=== PATIENT | male | born 1960 | race Caucasian/White ===

== ENCOUNTER → 2022-01-26 | Outpatient (CLI) | payer OTHER ==
[2022-01-26 18:32] LABS: Basophils # (A) 0.05 X 10*3/uL (0.00-0.10); Basophils % (A) 0.5 %; Eosinophils # (A) 0.09 X 10*3/uL (0.04-0.35); Eosinophils % (A) 0.8 %; HCT 52.3 % (39.6-50.0); HGB 17.1 g/dL (13.0-17.0); Immature Grans, Automated 0.9 %; Lymphocytes # (A) 1.82 X 10*3/uL (0.90-5.00); Lymphocytes % (A) 17.1 %; MCHC 32.7 g/dL (32.0-37.0); MCV 91.8 fL (80.0-97.0); Mean Platelet Volume 11.2 fL (9.5-12.2); Monocytes # (A) 0.63 X 10*3/uL (0.20-1.00); Monocytes % (A) 5.9 %; NRBC Per 100 WBC 0 /100 WBCS (0.0-0.0); Neutrophils # (A) 7.98 X 10*3/uL (1.80-7.70); Neutrophils % (A) 74.8 %; Platelet Count 188 X 10*3/uL (140-440); WBC 10.67 X 10*3/uL (4.50-10.00)
[2022-01-26 19:27] LABS: Protein, Total 7.2 g/dL (6.2-8.2)
[2022-01-26 19:34] LABS: African American GFR (CKD) 46.7 (60.0-200.0); Albumin 4.8 g/dL (3.8-4.9); Albumin/Globulin Ratio 1.88 (1.60-3.17); Anion Gap 15.1 mmol/L (10.00-18.00); BUN/Creat Ratio 15.61 Ratio (12.00-20.00); Blood Urea Nitrogen 28.1 mg/dL (9.0-27.0); Calcium 10.1 mg/dL (8.7-10.3); Carbon Dioxide 24.4 mmol/L (20.0-27.5); Globulin 2.6 g/dL (1.6-3.3); Non-African American GFR(CKD) 40.3 (60.0-200.0); Potassium 4.4 mmol/L (3.5-5.5); Total Bilirubin 0.7 mg/dL (0.30-1.20); Total Protein 7.3 g/dL (6.2-8.2)
== END | disposition home or self-care (01) ==
LOC: LABWHC1 14:43
PROVIDERS: ATTEND Internal Medicine
DX: L50.9 Urticaria, unspecified (principal)
CPT/HCPCS: 36415; 80053; 84165; 84443; 85025; 86038; 86160; 86161; 86332

== ENCOUNTER 2025-01-29 23:02 | Inpatient (IN) | payer OTHER ==
[2025-01-29] MEDS: SODIUM CHLORIDE 0.9% 1,000 ML IV STA (23:56)
[2025-01-30 00:01] LABS: HCT 33.6 % (39.6-50.0); HGB 11.8 g/dL (13.0-17.0); Immature Platelet Fraction 6.5 % (1.1-6.1); MCH 29.4 pg (27.0-32.0); MCHC 35.1 g/dL (32.0-37.0); MCV 83.6 fL (80.0-97.0); Mean Platelet Volume 11.2 fL (9.5-12.2); Platelet Count 139 10*3/uL (140-440); RBC 4.02 10*6/uL (4.40-5.60); RDW 14.8 % (11.5-14.5); WBC 6.89 10*3/uL (4.50-10.00)
--- NOTE | 2025-01-30 00:30 | XR ---
EXAM: XR Chest, 1 View CLINICAL HISTORY: ITS.REASON XR Reason: dyspnea TECHNIQUE: Frontal view of the chest. COMPARISON: No relevant prior studies available. FINDINGS: Lungs: Airspace consolidation in the right lung apex and bilateral lower lobes, consistent with multilobar pneumonia. Pleural space: Trace right pleural effusion. No pneumothorax. Heart: Unremarkable. No cardiomegaly. Mediastinum: Unremarkable. Bones/joints: Unremarkable. IMPRESSION: 1. Airspace consolidation in the right lung apex and bilateral lower lobes, consistent with multilobar pneumonia. 2. Trace right pleural effusion.
[2025-01-30] MEDS: HYDROmorphone 1 MG/ML 1 ML SYRINGE IVP STA ×2 (00:37→04:59)
[2025-01-30] MEDS: SODIUM CHLORIDE 0.9% 500 ML 500 ML IV STA (00:42)
[2025-01-30 00:43] LABS: ALT 42 U/L (4-49); AST 65 U/L (17-59); African American GFR (CKD) 35 (>60 ml/min/1.73 sqM); Albumin 3.4 g/dL (3.5-5.0); Alkaline Phosphatase 404 U/L (38-126); Anion Gap 18 mmol/L; Blood Urea Nitrogen 91 mg/dL (9-20); Calcium 8.8 mg/dL (8.4-10.2); Carbon Dioxide 21 mmol/L (22-30); Chloride 98 mmol/L (98-107); Glucose 131 mg/dL (74-99); Non-African American GFR(CKD) 31 (>60 ml/min/1.73 sqM); Sodium 137 mmol/L (137-145); Total Bilirubin 1.1 mg/dL (0.2-1.3); Total Protein 6.3 g/dL (6.3-8.2)
[2025-01-30 00:45] LABS: Potassium 2.4 mmol/L (3.5-5.1)
--- NOTE | 2025-01-30 00:45 | ED ---
General Adult HPI - General Chief complaint: Dizziness Stated complaint: Back Pain Time Seen by Provider: 01/29/25 23:24 Source: patient, EMS Mode of arrival: EMS Limitations: no limitations - History of Present Illness Initial comments: This patient is a 64-year-old man who presents to have evaluation of a number of symptoms. The thing that precipitated his visit today was that he was very weak and fell and then not really able to get up because of pain. The patient states he has had longstanding right back and right shoulder pain. He states he has been following up with orthopedics about these pains and they have tried tramadol. Patient states in fact that he has a surgery pending for February 09 but states that he does not think he will last until that date because of pain. He states that he is not able to get comfortable from the right back pain. It radiates to the right shoulder. He is not able to find a comfortable position. He states he is really not eating or drinking because of the pain. The patient did receive fentanyl and ondansetron by EMS. He states he continues to have pain but it is slightly improved. Denies underlying trauma. Onset/Timin -: month(s) Location: back Radiation: extremity Severity scale (1-10): 10 Quality: aching Consistency: constant Improves with: none Worsens with: movement Associated Symptoms: shortness of breath Treatments Prior to Arrival: other - Related Data Home Medications Medication Instructions Recorded Confirmed Acetaminophen [Tylenol Arthritis] 1,300 mg PO Q6H PRN 01/30/25 02/07/25 Cyclobenzaprine [Flexeril] 10 mg PO BID 01/30/25 02/07/25 Ibuprofen [Motrin Ib] 800 mg PO Q6H PRN 01/30/25 02/07/25 Simvastatin [Zocor] 20 mg PO HS 01/30/25 02/07/25 amLODIPine [Norvasc] 10 mg PO DAILY 01/30/25 02/07/25 hydroCHLOROthiazide [Hydrodiuril] 25 mg PO DAILY 01/30/25 02/07/25 traMADol HCL 50 mg PO BID 01/30/25 02/07/25 Allergies Allergy/AdvReac Type Severity Reaction Status Date / Time peanut Allergy Swelling Verified 01/29/25 23:27 shellfish derived [Shellfish] Allergy Anaphylaxis Verified 06/13/25 23:27 soybean Allergy Swelling Verified 01/29/25 23:27 wheat Allergy Swelling Verified 01/29/25 23:27 Review of Systems ROS Statement: Those systems with pertinent positive or pertinent negative responses have been documented in the HPI. ROS Other: All systems not noted in ROS Statement are negative. Constitutional: Reports: weakness. Denies: fever, chills Respiratory: Reports: dyspnea. Denies: cough, wheezes, hemoptysis Cardiovascular: Denies: chest pain, palpitations, edema Gastrointestinal: Reports: nausea. Denies: abdominal pain, vomiting, diarrhea Genitourinary: Denies: dysuria, hematuria Musculoskeletal: Reports: as per HPI, back pain Skin: Denies: rash, lesions Neurological: Denies: headache, weakness Past Medical History Past Medical History: No Reported History History of Any Multi-Drug Resistant Organisms: None Reported Past Surgical History: Hernia Repair Additional Past Surgical History / Comment(s): 2011 and 2015 mesh hernia repairs bilateral Past Psychological History: No Psychological Hx Reported Smoking Status: Current every day smoker, Heavy tobacco smoker Past Alcohol Use History: None Reported Past Drug Use History: None Reported - Past Family History Mother Family Medical History: CVA/TIA Father Family Medical History: Cancer Additional Family Medical History / Comment(s): lymphoma General Exam General appearance: alert, in distress Head exam: Present: atraumatic, normocephalic Eye exam: Present: normal appearance. Absent: scleral icterus, conjunctival injection ENT exam: Present: mucous membranes dry Neck exam: Present: normal inspection, full ROM. Absent: tenderness Respiratory exam: Present: respiratory distress, rhonchi. Absent: wheezes, rales, stridor, accessory muscle use, decreased breath sounds, prolonged expiratory Cardiovascular Exam: Present: normal rhythm, tachycardia, normal heart sounds. Absent: systolic murmur, diastolic murmur, rubs, gallop GI/Abdominal exam: Present: soft. Absent: distended, tenderness, guarding, rebound, rigid, mass Extremities exam: Present: normal inspection, normal capillary refill. Absent: pedal edema, calf tenderness Back exam: Present: normal inspection. Absent: CVA tenderness (R), CVA tenderness (L) Neurological exam: Present: alert Skin exam: Present: warm, dry, intact, normal color. Absent: rash Course Vital Signs 01/29/25 01/30/25 01/30/25 23:15 01:12 03:33 Temperature 98.5 F Pulse Rate 104 H 89 98 Respiratory 22 24 20 Rate Blood Pressure 112/64 82/54 123/46 O2 Sat by Pulse 95 90 L 88 L Oximetry Fraction of Inspired Oxygen (FIO2) 01/30/25 01/30/25 01/30/25 05:14 05:51 06:38 Temperature Pulse Rate 89 91 Respiratory 24 Rate Blood Pressure 97/64 101/74 O2 Sat by Pulse 97 91 L Oximetry Fraction of 92 Inspired Oxygen (FIO2) 01/30/25 01/30/25 01/30/25 07:24 08:12 08:17 Temperature Pulse Rate 90 88 Respiratory 26 H Rate Blood Pressure 89/53 O2 Sat by Pulse 87 L Oximetry Fraction of 70 Inspired Oxygen (FIO2) 01/30/25 01/30/25 01/30/25 08:28 08:58 10:00 Temperature Pulse Rate 88 88 69 Respiratory 24 24 Rate Blood Pressure 100/63 100/60 O2 Sat by Pulse 92 L 92 L Oximetry Fraction of Inspired Oxygen (FIO2) 01/30/25 01/30/25 01/30/25 11:00 11:20 11:38 Temperature Pulse Rate 68 85 84 Respiratory 24 Rate Blood Pressure 100/60 O2 Sat by Pulse 93 L Oximetry Fraction of 70 Inspired Oxygen (FIO2) 01/30/25 01/30/25 12:00 15:08 Temperature Pulse Rate 68 75 Respiratory 16 24 Rate Blood Pressure 100/60 135/68 O2 Sat by Pulse 93 L 94 L Oximetry Fraction of Inspired Oxygen (FIO2) EKG Findings - EKG Results: EKG: interpreted by ERMD, sinus rhythm, normal axis, normal QRS EKG shows: tachycardia (Rate 103 bpm) - Blocks, [place], Hypertrophy, ST Abn: Repolarization changes or abnormalities: nonspecific abnormality, ST segment, and/or T wave Medical Decision Making - Medical Decision Making Patient is 64-year-old man with right-sided back pain who on arrival does appear to be in mild respiratory distress. He is tachypneic. The patient does appear to be dehydrated clinically. The patient had chest x-ray that I interpreted as showing right-sided infiltrate suggestive of pneumonia. No pneumothorax or congestive heart failure. The patient subsequently had elevated D-dimer and is sent for CT scan that does appear to show by my interpretation a right lung mass with right-sided pleural effusion. No pulmonary embolism noted Was pt. sent in by a medical professional or institution ([facility], MUSEUM GUIDE, urgent care, hospital, or assisted...) When possible be specific @ -[No] Did you speak to anyone other than the patient for history (EMS, parent, family, police, friend...)? What history was obtained from this source @ -[ patient's contributed history Did you review nursing and triage notes (agree or disagree)? Why? @ -[I reviewed and agree with nursing and triage notes] Were old charts reviewed (outside hosp., previous admission, EMS record, old EKG, old radiological studies, urgent care reports/EKG's, assisted records)? Report findings @ -[Yes old charts were reviewed] Differential Diagnosis (chest pain, altered mental status, abdominal pain women, abdominal pain men, vaginal bleeding, weakness, fever, dyspnea, syncope, headache, dizziness, GI bleed, back pain, seizure, CVA, palpatations, mental health, musculoskeletal)? @ -[Differential Dyspnea: Coronary syndrome, arrhythmia, tamponade, asthma, COPD, pulmonary embolism, pneumonia, pneumothorax, pulmonary effusion, anaphylaxis, diabetic ketoacidosis, flailed chest, pulmonary contusion, diaphragmatic rupture, anemia, neuromuscular, this is not meant to be an all-inclusive list. Differential Musculoskeletal Muscular strain, contusion, ligament sprain, fracture, arthritis, septic arthritis, bursitis, cellulitis, muscle spasm, nerve compression, DVT, arterial occlusion, herpes zoster, electrolyte abnormality, tumor.... This is not meant to be in all inclusive list EKG interpreted by me (3pts min.). @ -[I interpreted as above] X-rays interpreted by me (1pt min.). @ -[None done] CT interpreted by me (1pt min.). @ -[I interpreted as above U/S interpreted by me (1pt. min.). @ -[None done] What testing was considered but not performed or refused? (CT, X-rays, U/S, labs)? Why? @ -[None] What meds were considered but not given or refused? Why? @ -[None] Did you discuss the management of the patient with other professionals (professionals i.e. , [facility], MUSEUM GUIDE, lab, RT, psych nurse, manager social work, delivery supervisor, teacher, medical scientific officer, child welfare caseworker)? Give summary @ -[Case discussed with admitting physician, treatment recommendations incorporated Was smoking cessation discussed for >3mins.? @ -[No] Was critical care preformed (if so, how long)? @ -[Yes, 35 minutes Were there social determinants of health that impacted care today? How? (Homelessness, low income, unemployed, alcoholism, drug addiction, transportation, low edu. Level, literacy, decrease access to med. care, [facility], rehab)? @ -[No] Was there de-escalation of care discussed even if they declined (Discuss DNR or withdrawal of care, Hospice)? DNR status @ -[No] What co-morbidities impacted this encounter? (DM, HTN, Smoking, COPD, CAD, Cancer, CVA, ARF, Chemo, Hep., AIDS, mental health diagnosis, sleep apnea, morbid obesity)? @ -[Extensive smoking history Was patient admitted / discharged? Hospital course, mention meds given and route, prescriptions, significant lab abnormalities, going to OR and other pertinent info. @ -[Patient is 64-year-old man here to have evaluation for back pain and also dyspneic. The patient's workup does reveal right upper lung mass, also suspected pneumonia associated. The patient does appear to be quite dehydrated and there is lactic acidosis and acute kidney injury. Patient also with elevated troponin possibly due to NSTEMI. Patient also hypokalemic on the initial labs. The patient will be admitted with consultations for pulmonology and for oncology Undiagnosed new problem with uncertain prognosis? @ -[No] Drug Therapy requiring intensive monitoring for toxicity (Heparin, Nitro, Insulin, Cardizem)? @ -[No] Were any procedures done? @ -[No] Diagnosis/symptom? @ -[Right upper lung mass, suspect carcinoma Suspected metastases Acute pneumonia COPD exacerbation Acute kidney injury Acute lactic acidosis Acute hypokalemia Elevated troponin, probable NSTEMI Acute, or Chronic, or Acute on Chronic? @ -[Acute Uncomplicated (without systemic symptoms) or Complicated (systemic symptoms)? @ -[Complicated by dyspnea Side effects of treatment? @ -[No] Exacerbation, Progression, or Severe Exacerbation? @ -[No] Poses a threat to life or bodily function? How? (Chest pain, [place], [place], pneumonia, PE, COPD, DKA, ARF, appy, cholecystitis, CVA, Diverticulitis, Homicidal, Suicidal, threat to staff... and all critical care pts) @ -[Yes grave prognosis related to suspected metastatic cancer All treatments are based on ideal body weight as in ED triage - Lab Data Result diagrams: 01/29/25 23:18 02/04/25 07:00 Lab Results 01/29/25 01/29/25 01/29/25 Range/Units 23:18 23:18 23:18 WBC 6.89 (4.50-10.00) 10*3/uL RBC 4.02 L (4.40-5.60) 10*6/uL Hgb 11.8 L (13.0-17.0) g/dL Hct 33.6 L (39.6-50.0) % MCV 83.6 (80.0-97.0) fL MCH 29.4 (27.0-32.0) pg MCHC 35.1 (32.0-37.0) g/dL Plt Count 139 L (140-440) 10*3/uL MPV 11.2 (9.5-12.2) fL Immature Gran % (Auto) 1.0 % Neutrophils % (Manual) 89 % Lymphocytes % (Manual) 7 % Monocytes % (Manual) 1 % Eosinophils % (Manual) 3 % Immature Gran # 0.07 H (0.00-0.04) 10*3/uL Neutrophils # (Manual) 6.13 (1.3-7.7) k/uL Lymphocytes # (Manual) 0.48 L (1.0-4.8) k/uL Monocytes # (Manual) 0.07 (0-1.0) k/uL Eosinophils # (Manual) 0.21 (0-0.7) k/uL Nucleated RBCs 0 (0-0) /100 WBC Manual Slide Review Performed Immature Plt Fraction 6.5 H (1.1-6.1) % Anisocytosis (manual) Present D-Dimer (<0.60) mg/L FEU Sodium 137 (137-145) mmol/L Potassium 2.4 L* (3.5-5.1) mmol/L Chloride 98 (98-107) mmol/L Carbon Dioxide 21 L (22-30) mmol/L Anion Gap 18 mmol/L BUN 91 H (9-20) mg/dL Creatinine 2.23 H (0.66-1.25) mg/dL Est GFR (CKD-EPI)AfAm 35 (>60 ml/min/1.73 sqM) Est GFR (CKD-EPI)NonAf 31 (>60 ml/min/1.73 sqM) Glucose 131 H (74-99) mg/dL Lactic Ac Sepsis Rflx Plasma Lactic Acid Ricardo 4.9 H* (0.7-2.0) mmol/L Calcium 8.8 (8.4-10.2) mg/dL Total Bilirubin 1.1 (0.2-1.3) mg/dL AST 65 H (17-59) U/L ALT 42 (4-49) U/L Alkaline Phosphatase 404 H (38-126) U/L Troponin I (0.000-0.034) ng/mL NT-Pro-B Natriuret Pep pg/mL Total Protein 6.3 (6.3-8.2) g/dL Albumin 3.4 L (3.5-5.0) g/dL Procalcitonin (0.02-0.50) ng/mL 01/29/25 01/29/25 01/30/25 Range/Units 23:18 23:18 00:46 WBC (4.50-10.00) 10*3/uL RBC (4.40-5.60) 10*6/uL Hgb (13.0-17.0) g/dL Hct (39.6-50.0) % MCV (80.0-97.0) fL MCH (27.0-32.0) pg MCHC (32.0-37.0) g/dL Plt Count (140-440) 10*3/uL MPV (9.5-12.2) fL Immature Gran % (Auto) % Neutrophils % (Manual) % Lymphocytes % (Manual) % Monocytes % (Manual) % Eosinophils % (Manual) % Immature Gran # (0.00-0.04) 10*3/uL Neutrophils # (Manual) (1.3-7.7) k/uL Lymphocytes # (Manual) (1.0-4.8) k/uL Monocytes # (Manual) (0-1.0) k/uL Eosinophils # (Manual) (0-0.7) k/uL Nucleated RBCs (0-0) /100 WBC Manual Slide Review Immature Plt Fraction (1.1-6.1) % Anisocytosis (manual) D-Dimer >34.10 H (<0.60) mg/L FEU Sodium (137-145) mmol/L Potassium (3.5-5.1) mmol/L Chloride (98-107) mmol/L Carbon Dioxide (22-30) mmol/L Anion Gap mmol/L BUN (9-20) mg/dL Creatinine (0.66-1.25) mg/dL Est GFR (CKD-EPI)AfAm (>60 ml/min/1.73 sqM) Est GFR (CKD-EPI)NonAf (>60 ml/min/1.73 sqM) Glucose (74-99) mg/dL Lactic Ac Sepsis Rflx Plasma Lactic Acid Ricardo (0.7-2.0) mmol/L Calcium (8.4-10.2) mg/dL Total Bilirubin (0.2-1.3) mg/dL AST (17-59) U/L ALT (4-49) U/L Alkaline Phosphatase (38-126) U/L Troponin I 0.089 H* (0.000-0.034) ng/mL NT-Pro-B Natriuret Pep 5990 pg/mL Total Protein (6.3-8.2) g/dL Albumin (3.5-5.0) g/dL Procalcitonin (0.02-0.50) ng/mL 01/30/25 01/30/25 01/30/25 Range/Units 00:46 00:58 03:20 WBC (4.50-10.00) 10*3/uL RBC (4.40-5.60) 10*6/uL Hgb (13.0-17.0) g/dL Hct (39.6-50.0) % MCV (80.0-97.0) fL MCH (27.0-32.0) pg MCHC (32.0-37.0) g/dL Plt Count (140-440) 10*3/uL MPV (9.5-12.2) fL Immature Gran % (Auto) % Neutrophils % (Manual) % Lymphocytes % (Manual) % Monocytes % (Manual) % Eosinophils % (Manual) % Immature Gran # (0.00-0.04) 10*3/uL Neutrophils # (Manual) (1.3-7.7) k/uL Lymphocytes # (Manual) (1.0-4.8) k/uL Monocytes # (Manual) (0-1.0) k/uL Eosinophils # (Manual) (0-0.7) k/uL Nucleated RBCs (0-0) /100 WBC Manual Slide Review Immature Plt Fraction (1.1-6.1) % Anisocytosis (manual) D-Dimer (<0.60) mg/L FEU Sodium (137-145) mmol/L Potassium (3.5-5.1) mmol/L Chloride (98-107) mmol/L Carbon Dioxide (22-30) mmol/L Anion Gap mmol/L BUN (9-20) mg/dL Creatinine (0.66-1.25) mg/dL Est GFR (CKD-EPI)AfAm (>60 ml/min/1.73 sqM) Est GFR (CKD-EPI)NonAf (>60 ml/min/1.73 sqM) Glucose (74-99) mg/dL Lactic Ac Sepsis Rflx Y Plasma Lactic Acid Ricardo 1.8 (0.7-2.0) mmol/L Calcium (8.4-10.2) mg/dL Total Bilirubin (0.2-1.3) mg/dL AST (17-59) U/L ALT (4-49) U/L Alkaline Phosphatase (38-126) U/L Troponin I (0.000-0.034) ng/mL NT-Pro-B Natriuret Pep pg/mL Total Protein (6.3-8.2) g/dL Albumin (3.5-5.0) g/dL Procalcitonin 64.50 H (0.02-0.50) ng/mL Disposition Clinical Impression: Pleural effusion, Pneumonia, Lung mass Disposition: ADMITTED IP TO THIS HOSP Condition: Serious Is patient prescribed a controlled substance at d/c from ED?: No
[2025-01-30 02:10] LABS: Eosinophils # (M) 0.21 k/uL (0-0.7); Lymphocytes # (M) 0.48 k/uL (1.0-4.8); Monocytes # (M) 0.07 k/uL (0-1.0); Neutrophils # (M) 6.13 k/uL (1.3-7.7); Neutrophils % (M) 89 %; Nucleated Red Blood Cells 0 /100 WBC (0-0); Total Cells Counted 100
[2025-01-30 02:13] LABS: Anisocytosis (M) Present
--- NOTE | 2025-01-30 02:45 | CT ---
EXAM: CT Angiography Chest With Intravenous Contrast CLINICAL HISTORY: ITS.REASON CT Reason: back pain, possible PE TECHNIQUE: Axial computed tomographic angiography images of the chest with intravenous contrast. CTDI is 34 mGy and DLP is 328.7 mGy-cm. This CT exam was performed using one or more of the following dose reduction techniques: automated exposure control, adjustment of the mA and/or kV according to patient size, and/or use of iterative reconstruction technique. MIP reconstructed images were created and reviewed. COMPARISON: No relevant prior studies available. FINDINGS: Pulmonary arteries: Unremarkable. No pulmonary embolism. Aorta: No acute findings. No thoracic aortic aneurysm. Lungs: Diffuse changes COPD. Left lower lobe atelectasis. No mass. Pleural space: Large right pleural effusion. No pneumothorax. Heart: Coronary artery calcifications. No cardiomegaly. No significant pericardial effusion. No evidence of RV dysfunction. Bones/joints: There is extension into the adjacent right 3rd and 4th ribs. This mass measures roughly 2.7 x 6.9 cm. No acute fracture. No dislocation. Soft tissues: Unremarkable. Lymph nodes: 3.2 x 1.8 cm right hilar lymph node. 2.7 cm right infrahilar lymph node. Right upper lobe pulmonary mass. IMPRESSION: Large right pleural effusion. 6.9 cm right upper lobe pulmonary mass likely representing neoplasm. PET scan recommended for further evaluation. Reactive right sided lymphadenopathy and large right pleural effusion
[2025-01-30] MEDS: LACTATED RINGERS 1,000 ML IV SCH (03:44)
[2025-01-30] MEDS ORDERED: ONDANSETRON 4 MG/2 ML VIAL IVP PRN (06:58)
[2025-01-30] MEDS ORDERED: NALOXONE 0.4 MG/ML 1 ML VIAL IV PRN (06:58)
[2025-01-30] MEDS: LACTATED RINGERS 1,000 ML IV ONE (07:10)
[2025-01-30] MEDS: POTASSIUM CHLORIDE ER 20 MEQ TAB.ER PO STA (07:17)
[2025-01-30] MEDS: SODIUM CHLORIDE 0.9% 1,000 ML IV SCH (07:24)
[2025-01-30] MEDS: IPRATROPIUM-ALBUTEROL 3 ML NEB INHALATION STA (08:11)
[2025-01-30] MEDS: FAMOTIDINE 20 MG TAB PO SCH (08:54)
[2025-01-30] MEDS: POTASSIUM CHLORIDE ER 20 MEQ TAB.ER PO SCH (08:55)
[2025-01-30] MEDS: ENOXAPARIN 40 MG/0.4 ML SYRINGE SQ SCH (08:55)
[2025-01-30] MEDS ORDERED: IPRATROPIUM-ALBUTEROL 3 ML NEB INHALATION PRN (09:08)
--- NOTE | 2025-01-30 10:14 | US ---
EXAMINATION TYPE: US chest DATE OF EXAM: 01/30/2025 COMPARISON: NONE CLINICAL INDICATION: Male, 64 years old with history of Right pleural effusion; Right pleural effusio n TECHNIQUE: Grayscale imaging of the chest. Targeted ultrasound of the posterior lower bilateral jazzmine thoraces FINDINGS: EXAM MEASUREMENTS: Right Pleural Effusion pocket size: 1.6 cm Right skin surface to fluid distance: 1.9 cm No significant fluid pocket visualized on left Right side NOT marked for possible thoracentesis outside the dept. Left side NOT marked for possible thoracentesis outside the dept. Pulmonologists are able to review the images in the patient?s EMR. IMPRESSIONS: Trace right pleural effusion. [facility], , 01/30/2025 10:12 AM
[2025-01-30] MEDS: methylPREDNISolone SOD SUCCI 125 MG/2 ML VIAL IV SCH (10:24)
[2025-01-30] MEDS: AZITHROMYCIN 500 MG in SODIUM CHLORIDE 0.9% 250 ML IVPB SCH (10:25)
[2025-01-30] MEDS: IPRATROPIUM-ALBUTEROL 3 ML NEB INHALATION SCH (11:20)
--- NOTE | 2025-01-30 14:57 | P.CNPUL ---
History of Present Illness Consult date: 01/30/25 Requesting physician: Anderson Green Reason for consult: dyspnea, hypoxemia, abnormal CXR/CT Chief complaint: Shortness of breath, dizziness, falls History of present illness: This is a pleasant 64-year-old male patient with a known history of hyperlipidemia, hypertension, recent right shoulder, back and right hip pain. He had been seen and evaluated by medicine and orthopedics and was scheduled for right hip surgery on February 09, 2025. His pain however was getting so bad he could barely walk and was getting dizzy and falling. He presented to the emergency room here late last night. Chest x-ray revealed airspace consolidation in the right lung apex and bilateral lower lobes, consistent with multilobar pneumonia. Trace right pleural effusion. CT angiogram of the chest revealed a large right pleural effusion. A 6.9 by 2.7 cm right upper lobe pulmonary mass likely result representing neoplasm. There is extension into the adjacent right 3rd and 4th rib. Reactive right sided lymphadenopathy. Ultrasound of the right chest revealed only a trace right pleural effusion measuring 1.6 cm. White count 6.8. Hemoglobin 11.8. Platelets 139. Sodium 137. Potassium 2.4. Bicarb 21. BUN 91. Creatinine 2.23. Glucose 131. AST 65. ALT 42. Troponin 0.089, 0.101. proBNP 5990. Procalcitonin 64.5. D-dimer greater than 34.1. The patient has been quite hypoxemic and is currently on Bi PAP / and 70% FiO2 to maintain O2 saturations in the low 90s. He is seen in consultation in the emergency department. He is currently sitting up in a recliner. Remains on BiPAP. His is at the bedside and provides most of the information. He does have a nearly 50-year pack per day smoking history. He has not been seen by bail attacher in the past. He has not had any low-dose CT scans for cancer screening. He has lost 23 pounds in the past several months. Most of his right shoulder and chest pain began in September 2024. Review of Systems REVIEW OF SYSTEMS: CONSTITUTIONAL: Denies any recent significant weight loss or weight gain. EYES: Denies change in vision. EARS, NOSE, MOUTH, THROAT: Denies headaches, denies sore throat. CARDIOVASCULAR: Denies chest pain, palpitations or syncopal episodes. RESPIRATORY: Positive for shortness of breath, cough, congestion no hemoptysis. GASTROINTESTINAL: Denies change in appetite, denies abdominal pain GENITOURINARY: Denies hematuria, denies infections. MUSKULOSKELETAL: Positive for right shoulder, chest and hip pain. INTEGUMENTARY: Denies rash, denies eczema. NEUROLOGICAL: Denies recent memory loss, no recent seizure activity. PSYCHIATRIC: Denies anxiety, denies depression. HEMATOLOGIC/LYMPHATIC: Denies anemia, denies enlarged lymph nodes. Past Medical History Past Medical History: No Reported History History of Any Multi-Drug Resistant Organisms: None Reported Past Surgical History: Hernia Repair Additional Past Surgical History / Comment(s): 2012 and 2016 mesh hernia repairs bilateral Past Psychological History: No Psychological Hx Reported Smoking Status: Current every day smoker, Heavy tobacco smoker Past Alcohol Use History: None Reported Past Drug Use History: None Reported Medications and Allergies Home Medications Medication Instructions Recorded Confirmed Type Acetaminophen [Tylenol Arthritis] 1,300 mg PO Q6H PRN 01/30/25 01/30/25 History Cyclobenzaprine [Flexeril] 10 mg PO BID 01/30/25 01/30/25 History Ibuprofen [Motrin Ib] 800 mg PO Q6H PRN 01/30/25 01/30/25 History Simvastatin [Zocor] 20 mg PO HS 01/30/25 01/30/25 History amLODIPine [Norvasc] 10 mg PO DAILY 01/30/25 01/30/25 History hydroCHLOROthiazide [Hydrodiuril] 25 mg PO DAILY 01/30/25 01/30/25 History traMADol HCL 50 mg PO BID 01/30/25 01/30/25 History Allergies Allergy/AdvReac Type Severity Reaction Status Date / Time peanut Allergy Swelling Verified 01/29/25 23:27 shellfish derived [Shellfish] Allergy Anaphylaxis Verified 01/29/25 23:27 soybean Allergy Swelling Verified 01/29/25 23:27 wheat Allergy Swelling Verified 01/29/25 23:27 Physical Exam Vitals: Vital Signs Temp Pulse Resp BP Pulse Ox FiO2 01/30/25 12:00 68 16 100/60 93 L 01/30/25 11:38 84 01/30/25 11:20 85 70 01/30/25 11:00 68 24 100/60 93 L 01/30/25 10:00 69 24 100/60 92 L 01/30/25 08:58 88 24 100/63 92 L 01/30/25 08:28 88 01/30/25 08:17 70 01/30/25 08:12 88 01/30/25 07:24 90 26 H 89/53 87 L 01/30/25 06:38 91 101/74 91 L 01/30/25 05:51 92 01/30/25 05:14 89 24 97/64 97 01/30/25 03:33 98 20 123/46 88 L 01/30/25 01:12 89 24 82/54 90 L 01/29/25 23:15 98.5 F 104 H 22 112/64 95 Intake and Output 01/29/25 01/30/25 01/30/25 22:59 06:59 14:59 Intake Total 1000 Output Total 300 Balance 700 Intake: Intake, IV Titration 1000 Amount Lactated Ringers 1,000 ml 1000 @ 999 mls/hr IV .Q1H1M ONE Rx#:[id number] Output: Urine 300 Other: Weight 70.307 kg GENERAL EXAM: Alert, 64-year-old male, on BiPAP, up in a chair, fairly, comfortable in no apparent distress. HEAD: Normocephalic. EYES: Normal reaction of pupils, equal size. NOSE: Clear with pink turbinates. THROAT: No erythema or exudates. NECK: No masses, no JVD. CHEST: No chest wall deformity. LUNGS: Equal air entry with scattered rhonchi, wheeze mostly in the right lung. CVS: S1 and S2 normal with no audible murmur, regular rhythm. ABDOMEN: No hepatosplenomegaly, normal bowel sounds, no guarding or rigidity. SPINE: No scoliosis or deformity SKIN: No rashes CENTRAL NERVOUS SYSTEM: No focal deficits, tone is normal in all 4 extremities. EXTREMITIES: There is no peripheral edema. No clubbing, no cyanosis. Peripheral pulses are intact. Results - Laboratory Findings CBC and BMP: 01/29/25 23:18 01/29/25 23:18 PT/INR, D-dimer D-Dimer >34.10 mg/L FEU (<0.60) H 01/29/25 23:18 Abnormal lab findings: Abnormal Labs 01/29/25 01/29/25 01/29/25 23:18 23:18 23:18 RBC 4.02 L Hgb 11.8 L Hct 33.6 L Plt Count 139 L Immature Gran # 0.07 H Lymphocytes # (Manual) 0.48 L Immature Plt Fraction 6.5 H D-Dimer Potassium 2.4 L* Carbon Dioxide 21 L BUN 91 H Creatinine 2.23 H Glucose 131 H Plasma Lactic Acid Ricardo 4.9 H* AST 65 H Alkaline Phosphatase 404 H Troponin I Albumin 3.4 L Procalcitonin 01/29/25 01/29/25 01/30/25 23:18 23:18 00:46 RBC Hgb Hct Plt Count Immature Gran # Lymphocytes # (Manual) Immature Plt Fraction D-Dimer >34.10 H Potassium Carbon Dioxide BUN Creatinine Glucose Plasma Lactic Acid Ricardo AST Alkaline Phosphatase Troponin I 0.089 H* Albumin Procalcitonin 64.50 H 01/30/25 07:36 RBC Hgb Hct Plt Count Immature Gran # Lymphocytes # (Manual) Immature Plt Fraction D-Dimer Potassium Carbon Dioxide BUN Creatinine Glucose Plasma Lactic Acid Ricardo AST Alkaline Phosphatase Troponin I 0.101 H* Albumin Procalcitonin - Diagnostic Findings Chest x-ray: image reviewed CT scan - chest: image reviewed Assessment and Plan Assessment: Generalized weakness, dizziness and falls suspect secondary to metastatic lung cancer A 6.9 by 2.7 cm right upper lobe pulmonary mass likely result representing neoplasm. There is extension into the adjacent right 3rd and 4th rib. Reactive right sided lymphadenopathy. Thought to be a large right pleural effusion however ultrasound of the right chest revealed only a trace right pleural effusion measuring 1.6 cm. Acute hypoxemic respiratory failure secondary to above suspected exacerbation of chronic obstructive pulmonary disease and post obstructive pneumonia. Procalcitonin 64.5 Significant weight loss of 23 pounds over the past several months 45 year pack/day smoking history Right shoulder, chest and hip pain. Scheduled for hip surgery on February 09, 2025 Troponin leak Hypertension Hyperlipidemia Plan: The patient was seen and evaluated All imaging, labs and medications reviewed Ultrasound revealed no significant pleural effusion The patient and his are made aware of probable lung cancer with metastasis Will need biopsy for confirmation Obtain a MRI of the brain Obtain a bone scan Medical oncology consulted Will consult radiation oncology Add DuoNeb inhalations Add Pulmicort and Perforomist inhalations Add IV Solu-Medrol Continue ceftriaxone and azithromycin Resume home medications Prognosis is guarded We will continue to follow and make further recommendations based on his clinical status I have personally seen and examined the patient, performed the documentation and the assessment and plan as written. Number of minutes spent on the visit: 20 Dictation was produced using [employer] dictation software. Please excuse any grammatical, word or spelling errors. Time with Patient: Greater than 30
--- NOTE | 2025-01-30 17:56 | P.HPIM ---
History of Present Illness H&P Date: 01/30/25 Chief Complaint: Short of breath Pleasant 64-year-old patient with follows with Dr. Villela. Chronic medical condition include hypertension, hyperlipidemia,. Patient also follows with orthopedics Dr. Vázquez. Patient is due for surgery on his right hip on February 09. Also has problems with cervical and lumbar spine. Also is followed with Dr. Carvajal, from OA. Patient been having significant pain in all these joints. Including both the shoulders. Patient has been losing weight has lost over 20 pounds. Has been more short of breath for over 3 weeks. Is a smoker. Cough clear sputum. Poor appetite. Patient is on a BiPAP. Patient's and son at the bedside. Review of systems: GEN.: Tired decreased appetite weight loss EYES: None HEENT: None NECK: None RESPIRATORY: As above] CARDIOVASCULAR: No edema GASTROINTESTINAL: About 2 bowel movements a week] GENITOURINARY: None MUSCULOSKELETAL: As above e LYMPHATICS: None HEMATOLOGICAL: None PSYCHIATRY: [Bit anxious NEUROLOGICAL: None Social history: Smokes a pack a day for close to 46 years. Lives with his and 2 daughters. 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 Sitting up in bed, with the BiPAP short of breath EYES: Pupils equal. Conjunctiva jill l. HEENT: External appearance of nose and ears normal, oral cavity grossly normal. NECK: JVD unable to assess; masses not palpable. HEART: First and second heart sounds are normal; no edema. LUNGS: Respiratory rate increased, accessory muscles working, unable to speak in full sentences, diminished breath sounds. ABDOMEN: Soft, nontender, liver spleen not palpable, no masses palpable. PSYCH: [Alert and oriented x3; mood and affect anxious MUSCULOSKELETAL:No Clubbing/cyanosis;muscles-grossly intact NEUROLOGICAL: Cranial nerves grossly intact; no facial asymmetry, power and sensation grossly intact. LYMPHATICS: No lymph nodes palpable in the axilla and neck INVESTIGATIONS, reviewed in the clinical context: January 29, 2025: White count 6.8 hemoglobin 11.8 platelets 139 sodium 137 potassium 2.4 BUN 91 creatinine 2.23 lactic acid 4.9 repeat 1.8 AST 65 ALT 42 Troponin I 0.089, 0.101 procalcitonin 64.5 EKG tracing personally reviewed by me-normal sinus rhythm. Nonspecific ST-T wave changes Chest x-ray film personally reviewed by me-bibasilar infiltrates. Right upper area possible mass CT angiogram chest with IV contrast: Large right pleural effusion diffuse changes of COPD right upper lobe pulmonary mass Assessment plan: - Pneumonia suspect gram-negative organism IV ceftriaxone, Zithromax Acute severe COPD exacerbation in a current smoker IV Solu-Medrol. DuoNeb. Nebulized Perforomist - Acute hypoxic respiratory failure from underlying COPD, pneumonia BiPAP - Right upper lung mass with right pleural effusion strongly suspicious for underlying malignancy in a smoker Pulmonary following - Large right pleural effusion suspicious for secondary to malignancy. Ultrasound marking ordered for possible thoracentesis - Essential hypertension Amlodipine. - Hyperlipidemia Zocor 20 mg nightly - Osteoarthritis in multiple joints including cervical spine, lumbar spine, right hip bilateral shoulders. With some neuropathic pain. Patient does follow outpatient with Dr. Tima Vázquez. Due for surgery in the right hip on February 09. Consult Dr. Vázquez - Normocytic anemia likely of chronic disease - Severe hypokalemia, replace potassium - Acute kidney injury. Patient has been taking significant amount of Motrin at home. Likely ATN Stop any NSAIDs. Renal ultrasound. Check UA IV fluids repeat labs of - Full code Care was discussed in the plan with the patient his and son at the bedside. Past Medical History Past Medical History: No Reported History History of Any Multi-Drug Resistant Organisms: None Reported Past Surgical History: Hernia Repair Additional Past Surgical History / Comment(s): 2011 and 2015 mesh hernia repairs bilateral Past Psychological History: No Psychological Hx Reported Smoking Status: Current every day smoker, Heavy tobacco smoker Past Alcohol Use History: None Reported Past Drug Use History: None Reported - Past Family History Mother Family Medical History: CVA/TIA Father Family Medical History: Cancer Additional Family Medical History / Comment(s): lymphoma Medications and Allergies Home Medications Medication Instructions Recorded Confirmed Type Acetaminophen [Tylenol Arthritis] 1,300 mg PO Q6H PRN 01/30/25 01/30/25 History Cyclobenzaprine [Flexeril] 10 mg PO BID 01/30/25 01/30/25 History Ibuprofen [Motrin Ib] 800 mg PO Q6H PRN 01/30/25 01/30/25 History Simvastatin [Zocor] 20 mg PO HS 01/30/25 01/30/25 History amLODIPine [Norvasc] 10 mg PO DAILY 01/30/25 01/30/25 History hydroCHLOROthiazide [Hydrodiuril] 25 mg PO DAILY 01/30/25 01/30/25 History traMADol HCL 50 mg PO BID 01/30/25 01/30/25 History Allergies Allergy/AdvReac Type Severity Reaction Status Date / Time peanut Allergy Swelling Verified 01/29/25 23:27 shellfish derived [Shellfish] Allergy Anaphylaxis Verified 01/29/25 23:27 soybean Allergy Swelling Verified 01/29/25 23:27 wheat Allergy Swelling Verified 01/29/25 23:27 Physical Exam Vitals: Vital Signs Temp Pulse Resp BP Pulse Ox FiO2 01/30/25 12:00 68 16 100/60 93 L 01/30/25 11:38 84 01/30/25 11:20 85 70 01/30/25 11:00 68 24 100/60 93 L 01/30/25 10:00 69 24 100/60 92 L 01/30/25 08:58 88 24 100/63 92 L 01/30/25 08:28 88 01/30/25 08:17 70 01/30/25 08:12 88 01/30/25 07:24 90 26 H 89/53 87 L 01/30/25 06:38 91 101/74 91 L 01/30/25 05:51 92 01/30/25 05:14 89 24 97/64 97 01/30/25 03:33 98 20 123/46 88 L 01/30/25 01:12 89 24 82/54 90 L 01/29/25 23:15 98.5 F 104 H 22 112/64 95 Intake and Output 01/29/25 01/30/25 01/30/25 22:59 06:59 14:59 Intake Total 1000 Output Total 300 Balance 700 Intake: Intake, IV Titration 1000 Amount Lactated Ringers 1,000 ml 1000 @ 999 mls/hr IV .Q1H1M ONE Rx#:[id number] Output: Urine 300 Other: Weight 70.307 kg Results CBC & Chem 7: 01/29/25 23:18 01/29/25 23:18 Labs: Abnormal Lab Results - Last 24 Hours (Table) 01/29/25 01/29/25 01/29/25 Range/Units 23:18 23:18 23:18 RBC 4.02 L (4.40-5.60) 10*6/uL Hgb 11.8 L (13.0-17.0) g/dL Hct 33.6 L (39.6-50.0) % Plt Count 139 L (140-440) 10*3/uL Immature Gran # 0.07 H (0.00-0.04) 10*3/uL Lymphocytes # (Manual) 0.48 L (1.0-4.8) k/uL Immature Plt Fraction 6.5 H (1.1-6.1) % D-Dimer (<0.60) mg/L FEU Potassium 2.4 L* (3.5-5.1) mmol/L Carbon Dioxide 21 L (22-30) mmol/L BUN 91 H (9-20) mg/dL Creatinine 2.23 H (0.66-1.25) mg/dL Glucose 131 H (74-99) mg/dL Plasma Lactic Acid Ricardo 4.9 H* (0.7-2.0) mmol/L AST 65 H (17-59) U/L Alkaline Phosphatase 404 H (38-126) U/L Troponin I (0.000-0.034) ng/mL Albumin 3.4 L (3.5-5.0) g/dL Procalcitonin (0.02-0.50) ng/mL 01/29/25 01/29/25 01/30/25 Range/Units 23:18 23:18 00:46 RBC (4.40-5.60) 10*6/uL Hgb (13.0-17.0) g/dL Hct (39.6-50.0) % Plt Count (140-440) 10*3/uL Immature Gran # (0.00-0.04) 10*3/uL Lymphocytes # (Manual) (1.0-4.8) k/uL Immature Plt Fraction (1.1-6.1) % D-Dimer >34.10 H (<0.60) mg/L FEU Potassium (3.5-5.1) mmol/L Carbon Dioxide (22-30) mmol/L BUN (9-20) mg/dL Creatinine (0.66-1.25) mg/dL Glucose (74-99) mg/dL Plasma Lactic Acid Ricardo (0.7-2.0) mmol/L AST (17-59) U/L Alkaline Phosphatase (38-126) U/L Troponin I 0.089 H* (0.000-0.034) ng/mL Albumin (3.5-5.0) g/dL Procalcitonin 64.50 H (0.02-0.50) ng/mL 01/30/25 Range/Units 07:36 RBC (4.40-5.60) 10*6/uL Hgb (13.0-17.0) g/dL Hct (39.6-50.0) % Plt Count (140-440) 10*3/uL Immature Gran # (0.00-0.04) 10*3/uL Lymphocytes # (Manual) (1.0-4.8) k/uL Immature Plt Fraction (1.1-6.1) % D-Dimer (<0.60) mg/L FEU Potassium (3.5-5.1) mmol/L Carbon Dioxide (22-30) mmol/L BUN (9-20) mg/dL Creatinine (0.66-1.25) mg/dL Glucose (74-99) mg/dL Plasma Lactic Acid Ricardo (0.7-2.0) mmol/L AST (17-59) U/L Alkaline Phosphatase (38-126) U/L Troponin I 0.101 H* (0.000-0.034) ng/mL Albumin (3.5-5.0) g/dL Procalcitonin (0.02-0.50) ng/mL
[2025-01-30] MEDS: NICOTINE 21MG/24HR PATCH TRANSDERM SCH (18:22)
--- NOTE | 2025-01-30 20:28 | US ---
EXAMINATION TYPE: US kidneys/renal and bladder DATE OF EXAM: 01/30/2025 COMPARISON: NONE CLINICAL INDICATION: Male, 64 years old with history of Abnormal kidney function; abn labs TECHNIQUE: Grayscale imaging of the bilateral kidneys and urinary bladder: FINDINGS: EXAM MEASUREMENTS: Right Kidney: 11.2x4.9x6.2 cm Left Kidney: 13.2x5.3x5.9 cm Right Kidney: wnl, no evidence for hydronephrosis, mass or renal calculus. Left Kidney: wnl, no evidence for hydronephrosis, mass or renal calculus. Bladder: likely large diverticulum: 8.2x5.2x6.3cm Bilateral inferior poles slightly obscured by bowel gas There is no evidence for hydronephrosis at this point in time. No nephrolithiasis is seen. No too s are identified. The urinary bladder is anechoic. IMPRESSION: 1. No evidence for obstructive uropathy 2. Bladder diverticulum. [facility], , 01/30/2025 8:25 PM
[2025-01-30] MEDS: CYCLOBENZAPRINE 10 MG TAB PO SCH (21:14)
[2025-01-30] MEDS: traMADol 50 MG TAB PO SCH (21:14)
[2025-01-30] MEDS: DOCUSATE 100 MG CAP PO SCH (21:15)
[2025-01-30] MEDS: FORMOTEROL FUMARATE 20 MCG/2 ML NEBU INHALATION SCH (21:31)
[2025-01-30] MEDS: BUDESONIDE 1 MG/2 ML NEBU INHALATION SCH (21:31)
[2025-01-31 08:08] LABS: African American GFR (CKD) 90 (>60 ml/min/1.73 sqM); Anion Gap 9 mmol/L; Blood Urea Nitrogen 51 mg/dL (9-20); Calcium 8.8 mg/dL (8.4-10.2); Carbon Dioxide 26 mmol/L (22-30); Chloride 101 mmol/L (98-107); Glucose 269 mg/dL (74-99); Non-African American GFR(CKD) 78 (>60 ml/min/1.73 sqM); Sodium 136 mmol/L (137-145)
--- NOTE | 2025-01-31 08:21 | P.CONS ---
History of Present Illness - Reason for Consult Consult date: 01/30/25 lung mass Requesting physician: Manny Gutierrez - Chief Complaint pain, SOB - History of Present Illness Patient presented to the emergency room for complaints of right lateral chest wall pain and right upper back pain, weakness and shortness of breath. Upon admit chest x-ray showed airspace consolidation in the right lung apex and bilateral lower lobes, concerning for multilobar pneumonia with trace right pleural effusion. IV abx started. CTA chest showing large right pleural effusion. 6.9 cm right upper lobe pulmonary mass. With right hilar and infrahilar lymphadenopathy. Also showing extension of mass into the adjacent right 3rd and 4th ribs measuring 2.7 x 6.9 cm with no acute fracture or dislocation. Pulmonology consulted. Ultrasound chest obtained showing trace right pleural effusion. Labs reviewed, WBC 6.8, hemoglobin 11.8, platelets 139,000. Creatinine 2.23, GFR 31. Lactic acid elevated at 4.9. BNP 5990. Procalcitonin 64.5. Bilirubin 1.1, AST 65, ALT 42, ALP 404. Troponins elevated. At today's visit patient is seen in the ER, currently on BiPAP. Patient states he has [id number] history of smoking. Has lost 25 pounds over the last 4 months. Denies hemoptysis. Complaining of right lateral chest wall pain, which radiates to the right scapula. Review of Systems 10 point ROS is negative except as stated in the HPI Past Medical History Past Medical History: No Reported History History of Any Multi-Drug Resistant Organisms: None Reported Past Surgical History: Hernia Repair Additional Past Surgical History / Comment(s): 2011 and 2015 mesh hernia repairs bilateral Past Psychological History: No Psychological Hx Reported Smoking Status: Current every day smoker, Heavy tobacco smoker Past Alcohol Use History: None Reported Past Drug Use History: None Reported - Past Family History Mother Family Medical History: CVA/TIA Father Family Medical History: Cancer Additional Family Medical History / Comment(s): lymphoma Medications and Allergies Home Medications Medication Instructions Recorded Confirmed Type Acetaminophen [Tylenol Arthritis] 1,300 mg PO Q6H PRN 01/30/25 01/30/25 History Cyclobenzaprine [Flexeril] 10 mg PO BID 01/30/25 01/30/25 History Ibuprofen [Motrin Ib] 800 mg PO Q6H PRN 01/30/25 01/30/25 History Simvastatin [Zocor] 20 mg PO HS 01/30/25 01/30/25 History amLODIPine [Norvasc] 10 mg PO DAILY 01/30/25 01/30/25 History hydroCHLOROthiazide [Hydrodiuril] 25 mg PO DAILY 01/30/25 01/30/25 History traMADol HCL 50 mg PO BID 01/30/25 01/30/25 History Allergies Allergy/AdvReac Type Severity Reaction Status Date / Time peanut Allergy Swelling Verified 01/29/25 23:27 shellfish derived [Shellfish] Allergy Anaphylaxis Verified 01/29/25 23:27 soybean Allergy Swelling Verified 01/29/25 23:27 wheat Allergy Swelling Verified 01/29/25 23:27 Physical Exam Vitals: Vital Signs Temp Pulse Resp BP Pulse Ox FiO2 01/30/25 11:38 84 01/30/25 11:20 85 70 01/30/25 10:00 69 24 100/60 92 L 01/30/25 08:58 88 24 100/63 92 L 01/30/25 08:28 88 01/30/25 08:17 70 01/30/25 08:12 88 01/30/25 07:24 90 26 H 89/53 87 L 01/30/25 06:38 91 101/74 91 L 01/30/25 05:51 92 01/30/25 05:14 89 24 97/64 97 01/30/25 03:33 98 20 123/46 88 L 01/30/25 01:12 89 24 82/54 90 L 01/29/25 23:15 98.5 F 104 H 22 112/64 95 Intake and Output 01/29/25 01/30/25 01/30/25 22:59 06:59 14:59 Intake Total 1000 Output Total 300 Balance 700 Intake: Intake, IV Titration 1000 Amount Lactated Ringers 1,000 ml 1000 @ 999 mls/hr IV .Q1H1M ONE Rx#:[id number] Output: Urine 300 Other: Weight 70.307 kg - Constitutional General appearance: average body habitus, no acute distress - EENT Eyes: anicteric sclerae, EOMI ENT: hearing grossly normal - Respiratory breathing labored, bipap in place - Cardiovascular skin warm and dry - Gastrointestinal General gastrointestinal: soft, no tenderness - Integumentary Integumentary: no cyanotic, no jaundiced - Musculoskeletal Musculoskeletal: generalized weakness - Psychiatric Psychiatric: A&O x's 3 Results CBC & Chem 7: 01/29/25 23:18 01/29/25 23:18 Labs: Abnormal Lab Results - Last 24 Hours (Table) 01/29/25 01/29/25 01/29/25 Range/Units 23:18 23:18 23:18 RBC 4.02 L (4.40-5.60) 10*6/uL Hgb 11.8 L (13.0-17.0) g/dL Hct 33.6 L (39.6-50.0) % Plt Count 139 L (140-440) 10*3/uL Immature Gran # 0.07 H (0.00-0.04) 10*3/uL Lymphocytes # (Manual) 0.48 L (1.0-4.8) k/uL Immature Plt Fraction 6.5 H (1.1-6.1) % D-Dimer (<0.60) mg/L FEU Potassium 2.4 L* (3.5-5.1) mmol/L Carbon Dioxide 21 L (22-30) mmol/L BUN 91 H (9-20) mg/dL Creatinine 2.23 H (0.66-1.25) mg/dL Glucose 131 H (74-99) mg/dL Plasma Lactic Acid Ricardo 4.9 H* (0.7-2.0) mmol/L AST 65 H (17-59) U/L Alkaline Phosphatase 404 H (38-126) U/L Troponin I (0.000-0.034) ng/mL Albumin 3.4 L (3.5-5.0) g/dL Procalcitonin (0.02-0.50) ng/mL 01/29/25 01/29/25 01/30/25 Range/Units 23:18 23:18 00:46 RBC (4.40-5.60) 10*6/uL Hgb (13.0-17.0) g/dL Hct (39.6-50.0) % Plt Count (140-440) 10*3/uL Immature Gran # (0.00-0.04) 10*3/uL Lymphocytes # (Manual) (1.0-4.8) k/uL Immature Plt Fraction (1.1-6.1) % D-Dimer >34.10 H (<0.60) mg/L FEU Potassium (3.5-5.1) mmol/L Carbon Dioxide (22-30) mmol/L BUN (9-20) mg/dL Creatinine (0.66-1.25) mg/dL Glucose (74-99) mg/dL Plasma Lactic Acid Ricardo (0.7-2.0) mmol/L AST (17-59) U/L Alkaline Phosphatase (38-126) U/L Troponin I 0.089 H* (0.000-0.034) ng/mL Albumin (3.5-5.0) g/dL Procalcitonin 64.50 H (0.02-0.50) ng/mL 01/30/25 Range/Units 07:36 RBC (4.40-5.60) 10*6/uL Hgb (13.0-17.0) g/dL Hct (39.6-50.0) % Plt Count (140-440) 10*3/uL Immature Gran # (0.00-0.04) 10*3/uL Lymphocytes # (Manual) (1.0-4.8) k/uL Immature Plt Fraction (1.1-6.1) % D-Dimer (<0.60) mg/L FEU Potassium (3.5-5.1) mmol/L Carbon Dioxide (22-30) mmol/L BUN (9-20) mg/dL Creatinine (0.66-1.25) mg/dL Glucose (74-99) mg/dL Plasma Lactic Acid Ricardo (0.7-2.0) mmol/L AST (17-59) U/L Alkaline Phosphatase (38-126) U/L Troponin I 0.101 H* (0.000-0.034) ng/mL Albumin (3.5-5.0) g/dL Procalcitonin (0.02-0.50) ng/mL Chest x-ray: report reviewed CT scan - chest: report reviewed Assessment and Plan (1) Lung mass Current Visit: Yes Status: Acute Priority: High Code(s): R91.8 - OTHER NONSPECIFIC ABNORMAL FINDING OF LUNG FIELD SNOMED Code(s): 417988943 (2) Pleural effusion Current Visit: Yes Status: Acute Priority: High Code(s): J90 - PLEURAL EFFUSION, NOT ELSEWHERE CLASSIFIED SNOMED Code(s): 99865516 (3) Pneumonia Current Visit: Yes Status: Acute Priority: High Code(s): J18.9 - PNEUMONIA, UNSPECIFIED ORGANISM SNOMED Code(s): 353272674 Plan: Lung mass, pneumonia: Presented c/o right lateral chest wall pain and right upper back pain, weakness and shortness of breath. -Upon admit chest x-ray showed airspace consolidation in the right lung apex and bilateral lower lobes, concerning for multilobar pneumonia with trace right pleural effusion. IV abx started. -CTA chest showing large right pleural effusion. 6.9 cm right upper lobe pulmonary mass. With right hilar and infrahilar lymphadenopathy. Also showing extension of mass into the adjacent right 3rd and 4th ribs measuring 2.7 x 6.9 cm with no acute fracture or dislocation. -Pulmonology consulted. Ultrasound chest obtained showing trace right pleural effusion. No plan for thoracentesis at this time -Rad onc consulted -Will need to obtain tissue biopsy. Bronch vs possible percutaneous biopsy. Await pulm recs -Pulmonary team has ordered brain MRI and bone scan Discussed findings and concerns for lung malignancy. Pt was agreeable to proceed with further workup. All questions and concerns were addressed Intractable pain r/t lung mass: -Continue supportive meds -Bowel regimen in place -Rad onc consulted
[2025-01-31 08:29] LABS: Potassium 2.7 mmol/L (3.5-5.1)
--- NOTE | 2025-01-31 10:01 | P.PN ---
Progress Note - Text Progress Note Date: 01/31/25 Chief Complaint: Short of breath Pleasant 64-year-old patient with follows with Dr. Villela. Chronic medical condition include hypertension, hyperlipidemia,. Patient also follows with orthopedics Dr. Vázquez. Patient is due for surgery on his right hip on February 09. Also has problems with cervical and lumbar spine. Also is followed with Dr. Carvajal, from OA. Patient been having significant pain in all these joints. Including both the shoulders. Patient has been losing weight has lost over 20 pounds. Has been more short of breath for over 3 weeks. Is a smoker. Cough clear sputum. Poor appetite. Patient is on a BiPAP. Patient's and son at the bedside. January 31: Admitted with pneumonia, severe COPD exacerbation, acute hypoxic respiratory failure, newly discovered right upper lung mass. Patient remains on BiPAP. Chest ultrasound does not show much fluid. Awaiting further input from Dr. Pelayo. Remains on IV ceftriaxone Zithromax IV Solu-Medrol. IV fluids. Discussed with the patient and at the bedside. Creatinine much better Active Medications Albuterol/Ipratropium (Ipratropium-Albuterol 3 Ml Neb) 3 ml INHALATION RT-QID [facility] Last Admin: 01/31/25 09:34 Dose: 3 ml Albuterol/Ipratropium (Ipratropium-Albuterol 3 Ml Neb) 3 ml INHALATION RT-Q2H PRN PRN Reason: Shortness Of Breath Or Wheezing Budesonide (Budesonide 1 Mg/2 Ml Nebu) 1 mg INHALATION RT-BID [facility] Last Admin: 01/31/25 09:34 Dose: 1 mg Cyclobenzaprine HCl (Cyclobenzaprine 10 Mg Tab) 10 mg PO BID [facility] Last Admin: 01/31/25 08:49 Dose: 10 mg Docusate Sodium (Docusate 100 Mg Cap) 100 mg PO BID [facility] Last Admin: 01/31/25 08:46 Dose: 100 mg Enoxaparin Sodium (Enoxaparin 40 Mg/0.4 Ml Syringe) 40 mg SQ DAILY [facility] Last Admin: 01/31/25 08:46 Dose: 40 mg Famotidine (Famotidine 20 Mg Tab) 20 mg PO DAILY [facility] Last Admin: 01/31/25 08:46 Dose: 20 mg Formoterol Fumarate (Formoterol Fumarate 20 Mcg/2 Ml Nebu) 20 mcg INHALATION RT-BID [facility] Last Admin: 01/31/25 09:34 Dose: 20 mcg Hydromorphone HCl (Hydromorphone 1 Mg/Ml 1 Ml Syringe) 1 mg IVP Q3H PRN PRN Reason: Pain Lactated Ringer's (Lactated Ringers) 1,000 mls @ 100 mls/hr IV .Q10H [facility] Last Admin: 01/31/25 06:44 Dose: 100 mls/hr Azithromycin 500 mg/ Sodium (Chloride) 250 mls @ 250 mls/hr IVPB DAILY [facility]; Protocol Stop: 02/01/25 09:59 Last Admin: 01/30/25 10:25 Dose: 250 mls/hr Ceftriaxone Sodium 2 gm/ (Sodium Chloride) 50 mls @ 100 mls/hr IVPB Q24H [facility]; Protocol Last Admin: 01/31/25 06:00 Dose: 100 mls/hr Methylprednisolone Sodium Succinate (Methylprednisolone Sod Succi 125 Mg/2 Ml Vial) 60 mg IV Q6H [facility] Last Admin: 01/31/25 08:49 Dose: 60 mg Naloxone HCl (Naloxone 0.4 Mg/Ml 1 Ml Vial) 0.2 mg IV Q2M PRN PRN Reason: Opioid Reversal Nicotine (Nicotine 21mg/24hr Patch) 1 patch TRANSDERM DAILY [facility] Last Admin: 01/31/25 08:57 Dose: 1 patch Ondansetron HCl (Ondansetron 4 Mg/2 Ml Vial) 4 mg IVP Q8HR PRN PRN Reason: Nausea And Vomiting Potassium Chloride (Potassium Chloride Er 20 Meq Tab.Er) 20 meq PO BID [facility] Last Admin: 01/31/25 08:50 Dose: 20 meq Potassium Chloride (Potassium Chloride Er 20 Meq Tab.Er) 40 meq PO Q2HR [facility] Stop: 01/31/25 12:01 Tramadol HCl (Tramadol 50 Mg Tab) 50 mg PO BID [facility] Last Admin: 01/31/25 08:47 Dose: 50 mg Social history: Smokes a pack a day for close to 46 years. Lives with his and 2 daughters. 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 Sitting up in bed, with the BiPAP short of breath EYES: Pupils equal. Conjunctiva jill l. HEENT: External appearance of nose and ears normal, oral cavity grossly normal. NECK: JVD unable to assess; masses not palpable. HEART: First and second heart sounds are normal; no edema. LUNGS: Respiratory rate increased, accessory muscles working, unable to speak in full sentences, diminished breath sounds. ABDOMEN: Soft, nontender, liver spleen not palpable, no masses palpable. PSYCH: [Alert and oriented x3; mood and affect anxious MUSCULOSKELETAL:No Clubbing/cyanosis;muscles-grossly intact INVESTIGATIONS, reviewed in the clinical context: Renal ultrasound: Unremarkable January 31 potassium 2.7 creatinine 1.03 January 29, 2025: White count 6.8 hemoglobin 11.8 platelets 139 sodium 137 potassium 2.4 BUN 91 creatinine 2.23 lactic acid 4.9 repeat 1.8 AST 65 ALT 42 Troponin I 0.089, 0.101 procalcitonin 64.5 EKG tracing personally reviewed by me-normal sinus rhythm. Nonspecific ST-T wave changes Chest x-ray film personally reviewed by me-bibasilar infiltrates. Right upper area possible mass CT angiogram chest with IV contrast: Large right pleural effusion diffuse changes of COPD right upper lobe pulmonary mass Assessment plan: - Pneumonia suspect gram-negative organism: Slow to respond IV ceftriaxone, Zithromax Acute severe COPD exacerbation in a current smoker: Slow to respond IV Solu-Medrol. DuoNeb. Nebulized Perforomist - Acute hypoxic respiratory failure from underlying COPD, pneumonia: Slow to respond BiPAP - Right upper lung mass with right pleural effusion strongly suspicious for underlying malignancy in a smoker Pulmonary following - Large right pleural effusion suspicious for secondary to malignancy. Ultrasound chest does not show much pleural fluid.-Follow with pulmonary - Essential hypertension Amlodipine. - Hyperlipidemia Zocor 20 mg nightly - Osteoarthritis in multiple joints including cervical spine, lumbar spine, right hip bilateral shoulders. With some neuropathic pain. Patient does follow outpatient with Dr. Tima Vázquez. Due for surgery in the right hip on February 09. Consult Dr. Vázquez - Normocytic anemia likely of chronic disease - Severe hypokalemia,: Slow to respond Replace potassium - Acute kidney injury. Patient has been taking significant amount of Motrin at home. Likely ATN Stop any NSAIDs. Renal ultrasound. Unremarkable Check UA IV fluids r - Full code Discussed with patient . Replace potassium. Await further input from pulmonary. Past Medical History Past Medical History: No Reported History History of Any Multi-Drug Resistant Organisms: None Reported Past Surgical History: Hernia Repair Additional Past Surgical History / Comment(s): 2011 and 2016 mesh hernia repairs bilateral Past Psychological History: No Psychological Hx Reported Smoking Status: Current every day smoker, Heavy tobacco smoker Past Alcohol Use History: None Reported Past Drug Use History: None Reported
[2025-01-31 10:31] LABS: Appearance,Urine Clear (Clear); Bilirubin,Urine Negative (Negative); Blood,Urine Negative (Negative); Color,Urine Light Yellow; Glucose,Urine (UA) Negative (Negative); Ketones,Urine Negative (Negative); Leukocyte Esterase,Urine Negative (Negative); Nitrite,Urine Negative (Negative); Protein,Urine Trace (Negative); Specific Gravity,Urine 1.017 (1.001-1.035); Urobilinogen,Urine <2.0 mg/dL (<2.0)
[2025-01-31] MEDS: POTASSIUM CHLORIDE ER 20 MEQ TAB.ER PO SCH (11:41)
--- NOTE | 2025-01-31 15:21 | P.PN ---
Subjective Progress Note Date: 01/31/25 This is a pleasant 64-year-old male patient with a known history of hyperlipidemia, hypertension, recent right shoulder, back and right hip pain. He had been seen and evaluated by medicine and orthopedics and was scheduled for right hip surgery on February 09, 2025. His pain however was getting so bad he co uld barely walk and was getting dizzy and falling. He presented to the emergency room here late last night. Chest x-ray revealed airspace consolidation in the right lung apex and bilateral lower lobes, consistent with multilobar pneumonia. Trace right pleural effusion. CT angiogram of the chest r evealed a large right pleural effusion. A 6.9 by 2.7 cm right upper lobe pulmonary mass likely result representing neoplasm. There is extension into the adjacent right 3rd and 4th rib. Reactive right sided lymphadenopathy. Ultrasound of the right chest revealed only a trace right pleural effusion measuring 1.6 cm. White count 6.8. Hemoglobin 11.8. Platelets 139. Sodium 137. Potassium 2.4. Bicarb 21. BUN 91. Creatinine 2.23. Glucose 131. AST 65. ALT 42. Troponin 0.089, 0.101. proBNP 5990. Procalcitonin 64.5. D-dimer greater than 34.1. The patient has been quite hypoxemic and is currently on BiPAP 12/6 and 70% FiO2 to maintain O2 saturations in the low 90s. He is seen in consultation in the emergency department. He is currently sitting up in a recliner. Remains on BiPAP. His is at the bedside and provides most of the information. He does have a nearly 50-year pack per day smoking history. He has not been seen by digital marketing manager in the past. He has not had any low-dose CT scans for cancer screening. He has lost 23 pounds in the past several months. Most of his right shoulder and chest pain began in September 2024. The patient is seen today January 31, 2025 in follow-up on the selective care unit. He is currently sitting up in bed. Awake and alert. He is still requiring BiPAP 12/6 and 70% FiO2 to maintain O2 saturations in the low 90s. Blood culture showing gram-positive cocci in chains. He is currently on ceftriaxone and azithromycin. He remains on DuoNeb inhalations, Pulmicort and performance inhalations, Solu-Medrol. NicoDerm patch in place. Lovenox for DVT prophylaxis. Sodium 136. Potassium 2.7. Bicarb 26. BUN 51. Creatinine 1.03. Urinalysis clean. Objective - Vital Signs Vital signs: Vital Signs Temp 97.9 F 01/31/25 04:00 Pulse 80 01/31/25 12:09 Resp 16 01/31/25 08:00 BP 120/72 01/31/25 08:00 Pulse Ox 99 01/31/25 08:00 FiO2 75 01/31/25 12:10 Intake & Output 01/30/25 01/31/25 01/31/25 18:59 06:59 18:59 Intake Total 1000 237 240 Output Total 300 1200 700 Balance 700 -793 460 Weight 70.307 kg 74 kg Intake: Intake, IV Titration 1000 Amount Lactated Ringers 1,000 ml 1000 @ 999 mls/hr IV .Q1H1M ONE Rx#:[id number] Oral 237 240 Output: Urine 300 1200 700 Other: Voiding Method External Catheter External Catheter - Exam GENERAL EXAM: Alert, pleasant 64-year-old male, sitting up in bed, on BiPAP, fairly comfortable in no apparent distress. HEAD: Normocephalic. EYES: Normal reaction of pupils, equal size. NOSE: Clear with pink turbinates. THROAT: No erythema or exudates. NECK: No masses, no JVD. CHEST: No chest wall deformity. LUNGS: Equal air entry with scattered rhonchi, wheeze mostly in the right lung. CVS: S1 and S2 normal with no audible murmur, regular rhythm. ABDOMEN: No hepatosplenomegaly, normal bowel sounds, no guarding or rigidity. SPINE: No scoliosis or deformity SKIN: No rashes CENTRAL NERVOUS SYSTEM: No focal deficits, tone is normal in all 4 extremities. EXTREMITIES: There is no peripheral edema. No clubbing, no cyanosis. Peripheral pulses are intact. - Labs CBC & Chem 7: 01/29/25 23:18 01/31/25 07:20 Labs: Abnormal Lab Results - Last 24 Hours (Table) 01/31/25 01/31/25 Range/Units 07:20 10:10 Sodium 136 L (137-145) mmol/L Potassium 2.7 L* (3.5-5.1) mmol/L BUN 51 H (9-20) mg/dL Glucose 269 H (74-99) mg/dL Urine Protein Trace H (Negative) Microbiology - Last 24 Hours (Table) 01/30/25 01:52 Blood Culture Gram Stain - Preliminary Blood Blood Culture - Preliminary Molecular ID Assessment and Plan Assessment: Generalized weakness, dizziness and falls suspect secondary to metastatic lung c ancer and bacteremia A 6.9 by 2.7 cm right upper lobe pulmonary mass 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 There is extension into the adjacent right 3rd and 4th rib. Reactive right sided lymphadenopathy. Thought to be a large right pleural effusion however ultrasound of the right chest revealed only a trace right pleural effusion measuring 1.6 cm. Bacteremia secondary to gram-positive cocci in chains, currently on ceftriaxone Acute hypoxemic respiratory failure secondary to above suspected exacerbation of chronic obstructive pulmonary disease and post obstructive pneumonia. Procalcitonin 64.5 Hypokalemia, being replaced Significant weight loss of 23 pounds over the past several months 45 year pack/day smoking history Right shoulder, chest and hip pain. Was scheduled for hip surgery on February 09, 2025 Troponin leak Hypertension Hyperlipidemia Plan: The patient was seen and evaluated Labs and medications reviewed Potassium being replaced Microbiology reviewed Remains on ceftriaxone Azithromycin discontinued Medical oncology notes reviewed MRI of the brain pending Bone scan pending Radiation oncology consult pending Will need a biopsy at some point Currently on BiPAP 12/6 and 70% FiO2 Transition to Airvo as tolerated Continue DuoNeb inhalations Continue Pulmicort and Perforomist inhalations Continue IV Solu-Medrol Educated regarding smoking cessation NicoDerm patch in place Prognosis is guarded We will continue to follow I have personally seen and examined the patient, performed the documentation and the assessment and plan as written. Number of minutes spent on the visit: 10 Dictation was produced using conXt dictation software. Please excuse any grammatical, word or spelling errors.
[2025-01-31] MEDS: POTASSIUM CHLORIDE ER 20 MEQ TAB.ER PO STA (21:17)
[2025-02-01 05:53] LABS: African American GFR (CKD) >90 (>60 ml/min/1.73 sqM); Anion Gap 8 mmol/L; Blood Urea Nitrogen 38 mg/dL (9-20); Carbon Dioxide 26 mmol/L (22-30); Chloride 105 mmol/L (98-107); Glucose 227 mg/dL (74-99); Non-African American GFR(CKD) >90 (>60 ml/min/1.73 sqM); Potassium 3.9 mmol/L (3.5-5.1); Sodium 139 mmol/L (137-145)
[2025-02-01 11:33] LABS: Glucose,Whole Blood 331 mg/dL (70-110)
[2025-02-01] MEDS ORDERED: DEXTROSE 50% SYRINGE 50 ML IVP PRN ×2 (12:17)
[2025-02-01] MEDS: INSULIN LISPRO (HumaLOG) 100 UNIT/ML 10 mL VL SQ SCH (12:46)
--- NOTE | 2025-02-01 12:57 | P.CNOR ---
History of Present Illness - HPI Consult date: 02/01/25 History of present illness: This is a 64 year-old male who is admitted with bacteremia, pneumonia, respiratory failure, COPD exacerbation and suspected metastatic lung cancer. Patient presented to the emergency room with complaints of left hip pain, dizziness and falls. Patient is seen and evaluated at bedside today. Patient has been seen as an outpatient at [facility] and is scheduled for left total hip arthroplasty on 02/09/2025. Patient states that his hip pain has been significant, but states that he understands he won't be able to proceed with elective hip surgery at this time. Patient denies any fever/chills, chest pain, abdominal pain, numbness or tingling. Review of Systems See HPI. Past Medical History Past Medical History: No Reported History History of Any Multi-Drug Resistant Organisms: None Reported Past Surgical History: Hernia Repair Additional Past Surgical History / Comment(s): 2011 and 2015 mesh hernia repairs bilateral Past Psychological History: No Psychological Hx Reported Smoking Status: Current every day smoker, Heavy tobacco smoker Past Alcohol Use History: None Reported Past Drug Use History: None Reported - Past Family History Mother Family Medical History: CVA/TIA Father Family Medical History: Cancer Additional Family Medical History / Comment(s): lymphoma Medications and Allergies Home Medications Medication Instructions Recorded Confirmed Type Acetaminophen [Tylenol Arthritis] 1,300 mg PO Q6H PRN 01/30/25 01/30/25 History Cyclobenzaprine [Flexeril] 10 mg PO BID 01/30/25 01/30/25 History Ibuprofen [Motrin Ib] 800 mg PO Q6H PRN 01/30/25 01/30/25 History Simvastatin [Zocor] 20 mg PO HS 01/30/25 01/30/25 History amLODIPine [Norvasc] 10 mg PO DAILY 01/30/25 01/30/25 History hydroCHLOROthiazide [Hydrodiuril] 25 mg PO DAILY 01/30/25 01/30/25 History traMADol HCL 50 mg PO BID 01/30/25 01/30/25 History Allergies Allergy/AdvReac Type Severity Reaction Status Date / Time peanut Allergy Swelling Verified 01/29/25 23:27 shellfish derived [Shellfish] Allergy Anaphylaxis Verified 01/29/25 23:27 soybean Allergy Swelling Verified 01/29/25 23:27 wheat Allergy Swelling Verified 01/29/25 23:27 Physical Examination On exam patient is resting comfortably in bed in no acute distress. Alert and oriented x3. Left lower extremity: Pain and limitation with hip motion. No soft tissue swelling. Skin intact. Calf is soft and nontender to palpation. Sensation intact. Neurovascular status and circulatory status are intact. Results - Labs Labs: Abnormal Lab Results - Last 24 Hours (Table) 01/31/25 02/01/25 02/01/25 Range/Units 18:16 04:37 11:32 Potassium 3.1 L (3.5-5.1) mmol/L BUN 38 H (9-20) mg/dL Glucose 227 H (74-99) mg/dL POC Glucose (mg/dL) 331 H (70-110) mg/dL Microbiology - Last 24 Hours (Table) 01/30/25 01:52 Blood Culture Gram Stain - Preliminary Blood Blood Culture - Preliminary Streptococcus intermedius Molecular ID H & H 01/29/25 Range/Units 23:18 Hgb 11.8 L (13.0-17.0) g/dL Hct 33.6 L (39.6-50.0) % Result Diagrams: 01/29/25 23:18 02/01/25 04:37 Assessment and Plan (1) Left hip pain Current Visit: Yes Status: Acute Code(s): M25.552 - PAIN IN LEFT HIP SNOMED Code(s): 29934735 (2) Lung mass Current Visit: Yes Status: Acute Priority: High Code(s): R91.8 - OTHER NONSPECIFIC ABNORMAL FINDING OF LUNG FIELD SNOMED Code(s): 226335354 (3) Pleural effusion Current Visit: Yes Status: Acute Priority: High Code(s): J90 - PLEURAL E FFUSION, NOT ELSEWHERE CLASSIFIED SNOMED Code(s): 09629649 (4) Pneumonia Current Visit: Yes Status: Acute Priority: High Code(s): J18.9 - PNEUMONIA, UNSPECIFIED ORGANISM SNOMED Code(s): 962530144 (5) Osteoarthritis of left hip Current Visit: Yes Status: Acute Code(s): M16.12 - UNILATERAL PRIMARY OSTEOARTHRITIS, LEFT HIP SNOMED Code(s): 871367677748593 Plan: 1. Patient is scheduled for a CT abdomen/Pelvis and a bone scan. 2. At this time, the patient's upcoming elective left total hip arthroplasty will be canceled and this was discussed at bedside today. We will continue to follow as needed.
[2025-02-01] MEDS: HYDROmorphone 1 MG/ML 1 ML SYRINGE IVP PRN (14:36)
--- NOTE | 2025-02-01 14:55 | NM ---
EXAMINATION TYPE: NM bone scan whole body DATE OF EXAM: 02/01/2025 COMPARISON: NONE CLINICAL INDICATION: Male, 64 years old with history of Bone metastasis; Delayed whole-body scanning was performed following the injection of 23.5 mCi Tc 99m MDP. Images acq uired 5 hours post injection. FINDINGS: There is increased uptake in the region of the right humeral head. Increased uptake is in the region of the left femoral head.. These areas are nonspecific. Metastasis is not excluded. No obvious abnorm ality is identified within the right humeral head on recent CT which partially includes this area wit hin the [id number]. There are ring additional areas of joint uptake within the bilateral feet and bilateral knees bilater al elbows and in within the wrist regions. Suspicious axial uptake is not identified. No suspicious u ptake within posterior upper right ribs no fractures and rib destruction some lucency may be present on the images. IMPRESSION: 1. There is a photopenic defect within right posterior rib. An aggressive metastasis is not excluded. 2. Right humeral head and left femoral head and increased uptake slightly greater than expected for t ypical degenerative change. 3. Additional areas of uptake more likely related to degenerative joint changes. [facility], , 02/01/2025 2:53 PM
[2025-02-01 16:18] LABS: Glucose,Whole Blood 266 mg/dL (70-110)
--- NOTE | 2025-02-01 17:13 | P.PN ---
Subjective Progress Note Date: 02/01/25 This is a pleasant 64-year-old male patient with a known history of hyperlipidemia, hypertension, recent right shoulder, back and right hip pain. He had been seen and evaluated by medicine and orthopedics and was scheduled for right hip surgery on February 09, 2025. His pain however was getting so bad he co uld barely walk and was getting dizzy and falling. He presented to the emergency room here late last night. Chest x-ray revealed airspace consolidation in the right lung apex and bilateral lower lobes, consistent with multilobar pneumonia. Trace right pleural effusion. CT angiogram of the chest r evealed a large right pleural effusion. A 6.9 by 2.7 cm right upper lobe pulmonary mass likely result representing neoplasm. There is extension into the adjacent right 3rd and 4th rib. Reactive right sided lymphadenopathy. Ultrasound of the right chest revealed only a trace right pleural effusion measuring 1.6 cm. White count 6.8. Hemoglobin 11.8. Platelets 139. Sodium 137. Potassium 2.4. Bicarb 21. BUN 91. Creatinine 2.23. Glucose 131. AST 65. ALT 42. Troponin 0.089, 0.101. proBNP 5990. Procalcitonin 64.5. D-dimer greater than 34.1. The patient has been quite hypoxemic and is currently on BiPAP 12/6 and 70% FiO2 to maintain O2 saturations in the low 90s. He is seen in consultation in the emergency department. He is currently sitting up in a recliner. Remains on BiPAP. His is at the bedside and provides most of the information. He does have a nearly 50-year pack per day smoking history. He has not been seen by far[facility] dealer in the past. He has not had any low-dose CT scans for cancer screening. He has lost 23 pounds in the past several months. Most of his right shoulder and chest pain began in September 2024. The patient is seen today January 31, 2025 in follow-up on the selective care unit. He is currently sitting up in bed. Awake and alert. He is still requiring BiPAP 12/6 and 70% FiO2 to maintain O2 saturations in the low 90s. Blood culture showing gram-positive cocci in chains. He is currently on ceftriaxone and azithromycin. He remains on DuoNeb inhalations, Pulmicort and performance inhalations, Solu-Medrol. NicoDerm patch in place. Lovenox for DVT prophylaxis. Sodium 136. Potassium 2.7. Bicarb 26. BUN 51. Creatinine 1.03. Urinalysis clean. The patient is seen today February 01, 2025 in follow-up on the selective care unit. He is awake and alert in no acute distress. Sitting up in bed. Maintaining O2 saturations in the 90s on Airvo high flow oxygen at 50 L and 65% FiO2. Blood culture showing Streptococcus intermedius. Sodium 139. Potassium 3.9. Bicarb 26. BUN 38. Creatinine 0.83. Glucose 227. He remains on DuoNeb inhalations, Pulmicort and Perforomist inhalations, IV Solu-Medrol. NicoDerm patch in place. Antibiotics in the form of ceftriaxone. There is a photopenic defect within the right posterior rib. An aggressive metastasis is not excluded. Right humeral head and left femoral head and increased uptake slightly greater than expected for typical degenerative change. Additional areas of uptake more likely related to degenerative joint changes. Objective - Vital Signs Vital signs: Vital Signs Temp 97.6 F 02/01/25 12:00 Pulse 76 02/01/25 16:59 Resp 20 02/01/25 14:00 BP 133/76 02/01/25 12:00 Pulse Ox 94 L 02/01/25 16:43 FiO2 75 02/01/25 16:43 Intake & Output 01/31/25 02/01/25 02/01/25 18:59 06:59 18:59 Intake Total 240 Output Total 1200 500 675 Balance -523 -884 -014 Weight 74 kg Intake: Oral 240 Output: Urine 1200 500 675 Other: Voiding Method External Catheter External Catheter External Catheter - Exam GENERAL EXAM: Alert, 64-year-old male, sitting up in bed, on Airvo high flow oxygen at 50 L and 65% FiO2, fairly comfortable in no apparent distress. HEAD: Normocephalic. EYES: Normal reaction of pupils, equal size. NOSE: Clear with pink turbinates. THROAT: No erythema or exudates. NECK: No masses, no JVD. CHEST: No chest wall deformity. LUNGS: Equal air entry with scattered rhonchi, wheeze mostly in the right lung. CVS: S1 and S2 normal with no audible murmur, regular rhythm. ABDOMEN: No hepatosplenomegaly, normal bowel sounds, no guarding or rigidity. SPINE: No scoliosis or deformity SKIN: No rashes CENTRAL NERVOUS SYSTEM: No focal deficits, tone is normal in all 4 extremities. EXTREMITIES: There is no peripheral edema. No clubbing, no cyanosis. Peripheral pulses are intact. - Labs CBC & Chem 7: 01/29/25 23:18 02/01/25 04:37 Labs: Abnormal Lab Results - Last 24 Hours (Table) 01/31/25 02/01/25 02/01/25 Range/Units 18:16 04:37 11:32 Potassium 3.1 L (3.5-5.1) mmol/L BUN 38 H (9-20) mg/dL Glucose 227 H (74-99) mg/dL POC Glucose (mg/dL) 331 H (70-110) mg/dL 02/01/25 Range/Units 16:17 Potassium (3.5-5.1) mmol/L BUN (9-20) mg/dL Glucose (74-99) mg/dL POC Glucose (mg/dL) 266 H (70-110) mg/dL Microbiology - Last 24 Hours (Table) 01/30/25 01:52 Blood Culture Gram Stain - Preliminary Blood Blood Culture - Preliminary Streptococcus intermedius Molecular ID Assessment and Plan Assessment: Generalized weakness, dizziness and falls suspect secondary to metastatic lung cancer and bacteremia A 6.9 by 2.7 cm right upper lobe pulmonary mass likely result representing neoplasm. There is extension into the adjacent right 3rd and 4th rib. Reactive right sided lymphadenopathy. Thought to be a large right pleural effusion however ultrasound of the right chest revealed only a trace right pleural effusion measuring 1.6 cm. Bone scan revealed a photopenic defect within the right posterior rib. An aggressive metastasis is not excluded. Right humeral head and left femoral head with increased uptake slightly greater than expected for typical degenerative changes Bacteremia secondary to Streptococcus intermedius, currently on ceftriaxone Acute hypoxemic respiratory failure secondary to above suspected exacerbation of chronic obstructive pulmonary disease and post obstructive pneumonia. Procalcitonin 64.5 Hypokalemia, being replaced Significant weight loss of 23 pounds over the past several months 45 year pack/day smoking history Right shoulder, chest and hip pain. Was scheduled for hip surgery on February 09, 2025 Troponin leak Hypertension Hyperlipidemia Plan: The patient was seen and evaluated Labs and medications reviewed Bone scan reviewed Microbiology reviewed Remains on ceftriaxone Medical oncology notes reviewed MRI of the brain pending Radiation oncology consult pending Will need a biopsy at some point Currently on Airvo high flow oxygen Titrate down the FiO2 as tolerated Continue DuoNeb inhalations Continue Pulmicort and Perforomist inhalations Continue IV Solu-Medrol Educated regarding smoking cessation NicoDerm patch in place Prognosis is guarded We will continue to follow I have personally seen and examined the patient, performed the documentation and the assessment and plan as written. Number of minutes spent on the visit: 10 Dictation was produced using [employer] dictation software. Please excuse any grammatical, word or spelling errors.
--- NOTE | 2025-02-01 18:06 | P.PN ---
Progress Note - Text Progress Note Date: 02/01/25 Chief Complaint: Short of breath Pleasant 64-year-old patient with follows with Dr. Villela. Chronic medical condition include hypertension, hyperlipidemia,. Patient also follows with orthopedics Dr. Vázquez. Patient is due for surgery on his right hip on February 09. Also has problems with cervical and lumbar spine. Also is followed with Dr. Carvajal, from OA. Patient been having significant pain in all these joints. Including both the shoulders. Patient has been losing weight has lost over 20 pounds. Has been more short of breath for over 3 weeks. Is a smoker. Cough clear sputum. Poor appetite. Patient is on a BiPAP. Patient's and son at the bedside. January 31: Admitted with pneumonia, severe COPD exacerbation, acute hypoxic respiratory failure, newly discovered right upper lung mass. Patient remains on BiPAP. Chest ultrasound does not show much fluid. Awaiting further input from Dr. Pelayo. Remains on IV ceftriaxone Zithromax IV Solu-Medrol. IV fluids. Discussed with the patient and at the bedside. Creatinine much better February 01: Seen this morning. Reclining in bed. On Airvo. 50 L 65%. Short of breath, but a bit better. Was on liquid diet. Advance to a soft diet. Remains on nebulized bronchodilators IV Solu-Medrol IV ceftriaxone. Bone scan was done. Somewhat nonspecific. Patient's current pulmonary status now stable for biopsy. Seen by orthopedics team. Elective total hip arthroplasty has been canceled. Eating well Active Medications Albuterol/Ipratropium (Ipratropium-Albuterol 3 Ml Neb) 3 ml INHALATION RT-QID [facility] Last Admin: 02/01/25 16:42 Dose: 3 ml Albuterol/Ipratropium (Ipratropium-Albuterol 3 Ml Neb) 3 ml INHALATION RT-Q2H PRN PRN Reason: Shortness Of Breath Or Wheezing Barium Sulfate (Barium Sulfate 2% - 450 Ml Oral.Susp Bottle) 450 ml PO Q3HR PRN PRN Reason: CT Scan Stop: 02/02/25 11:13 Budesonide (Budesonide 1 Mg/2 Ml Nebu) 1 mg INHALATION RT-BID [facility] Last Admin: 02/01/25 07:37 Dose: 1 mg Cyclobenzaprine HCl (Cyclobenzaprine 10 Mg Tab) 10 mg PO BID [facility] Last Admin: 02/01/25 10:15 Dose: 10 mg Dextrose/Water (Dextrose 50% Syringe 50 Ml) 25 ml IVP PER PROTOCOL PRN; Protocol PRN Reason: Hypoglycemia Dextrose/Water (Dextrose 50% Syringe 50 Ml) 50 ml IVP PER PROTOCOL PRN; Protocol PRN Reason: Hypoglycemia Docusate Sodium (Docusate 100 Mg Cap) 100 mg PO BID [facility] Last Admin: 02/01/25 10:14 Dose: 100 mg Enoxaparin Sodium (Enoxaparin 40 Mg/0.4 Ml Syringe) 40 mg SQ DAILY [facility] Last Admin: 02/01/25 10:15 Dose: 40 mg Famotidine (Famotidine 20 Mg Tab) 20 mg PO DAILY [facility] Last Admin: 02/01/25 10:14 Dose: 20 mg Formoterol Fumarate (Formoterol Fumarate 20 Mcg/2 Ml Nebu) 20 mcg INHALATION RT-BID [facility] Last Admin: 02/01/25 07:36 Dose: 20 mcg Hydromorphone HCl (Hydromorphone 1 Mg/Ml 1 Ml Syringe) 1 mg IVP Q3H PRN PRN Reason: Pain Last Admin: 02/01/25 14:36 Dose: 1 mg Lactated Ringer's (Lactated Ringers) 1,000 mls @ 100 mls/hr IV .Q10H [facility] Last Admin: 02/01/25 17:44 Dose: 100 mls/hr Ceftriaxone Sodium 2 gm/ (Sodium Chloride) 50 mls @ 100 mls/hr IVPB Q24H [facility]; Protocol Last Admin: 02/01/25 06:43 Dose: 100 mls/hr Insulin Human Lispro (Insulin Lispro (Humalog) 100 Unit/Ml 10 Ml Vl) 0 unit SQ ACHS [facility]; Protocol Last Admin: 02/01/25 17:44 Dose: 6 unit Methylprednisolone Sodium Succinate (Methylprednisolone Sod Succi 125 Mg/2 Ml Vial) 60 mg IV Q6H [facility] Last Admin: 02/01/25 17:43 Dose: 60 mg Naloxone HCl (Naloxone 0.4 Mg/Ml 1 Ml Vial) 0.2 mg IV Q2M PRN PRN Reason: Opioid Reversal Nicotine (Nicotine 21mg/24hr Patch) 1 patch TRANSDERM DAILY [facility] Last Admin: 02/01/25 10:15 Dose: 1 patch Ondansetron HCl (Ondansetron 4 Mg/2 Ml Vial) 4 mg IVP Q8HR PRN PRN Reason: Nausea And Vomiting Potassium Chloride (Potassium Chloride Er 20 Meq Tab.Er) 20 meq PO BID [facility] Last Admin: 02/01/25 10:15 Dose: 20 meq Tramadol HCl (Tramadol 50 Mg Tab) 50 mg PO BID [facility] Last Admin: 02/01/25 10:14 Dose: 50 mg Social history: Smokes a pack a day for close to 46 years. Lives with his and 2 daughters. 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 Sitting up in bed, short of breath EYES: Pupils equal. Conjunctiva jill l. HEENT: External appearance of nose and ears normal, oral cavity grossly normal. NECK: JVD unable to assess; masses not palpable. HEART: First and second heart sounds are normal; no edema. LUNGS: Respiratory rate increased,, unable to speak in full sentences, diminished breath sounds. ABDOMEN: Soft, nontender, liver spleen not palpable, no masses palpable. PSYCH: [Alert and oriented x3; mood and affect anxious MUSCULOSKELETAL:No Clubbing/cyanosis;muscles-grossly intact INVESTIGATIONS, reviewed in the clinical context: Bone scan: Nonspecific potassium 3.9 creatinine 0.83 Renal ultrasound: Unremarkable January 31 potassium 2.7 creatinine 1.03 January 29, 2025: White count 6.8 hemoglobin 11.8 platelets 139 sodium 137 potassium 2.4 BUN 91 creatinine 2.23 lactic acid 4.9 repeat 1.8 AST 65 ALT 42 Troponin I 0.089, 0.101 procalcitonin 64.5 EKG tracing personally reviewed by me-normal sinus rhythm. Nonspecific ST-T wave changes Chest x-ray film personally reviewed by me-bibasilar infiltrates. Right upper area possible mass CT angiogram chest with IV contrast: Large right pleural effusion diffuse changes of COPD right upper lobe pulmonary mass Assessment plan: - Pneumonia suspect gram-negative organism: IV ceftriaxone, Zithromax Acute severe COPD exacerbation in a current smoker: Slow to respond IV Solu-Medrol. DuoNeb. Nebulized Perforomist - Acute hypoxic respiratory failure from underlying COPD, pneumonia: Slow to respond On Airvo. 50/65 - Right upper lung mass with right pleural effusion strongly suspicious for underlying malignancy in a smoker. Will need a biopsy/bronchoscopy. Currently pulmonary status not stable for the same Pulmonary following -Right pleural effusion suspicious for secondary to malignancy. Ultrasound chest does not show much pleural fluid.-Follow with pulmonary - Essential hypertension Amlodipine. - Hyperlipidemia Zocor 20 mg nightly - Osteoarthritis in multiple joints including cervical spine, lumbar spine, right hip bilateral shoulders. With some neuropathic pain. Patient does follow outpatient with Dr. Tima Vázquez. Was due for surgery in the right hip on February 09.-Now canceled Orthopedics-Dr. Vázquez - Normocytic anemia likely of chronic disease - Severe hypokalemia,: Replaced Replace potassium - Acute kidney injury. Patient has been taking significant amount of Motrin at home. Likely ATN: Improved Stop any NSAIDs. Renal ultrasound. Unremarkable Check UA IV fluids r - Full code Discussed. Continue current treatment plan. Past Medical History Past Medical History: No Reported History History of Any Multi-Drug Resistant Organisms: None Reported Past Surgical History: Hernia Repair Additional Past Surgical History / Comment(s): 2011 and 2016 mesh hernia repairs bilateral Past Psychological History: No Psychological Hx Reported Smoking Status: Current every day smoker, Heavy tobacco smoker Past Alcohol Use History: None Reported Past Drug Use History: None Reported
[2025-02-01] MEDS: methylPREDNISolone SOD SUCCI 125 MG/2 ML VIAL IV SCH (18:39)
[2025-02-01 19:45] LABS: Glucose,Whole Blood 303 mg/dL (70-110)
[2025-02-01] MEDS: diphenhydrAMINE 25 MG CAP PO ONE (21:25)
--- NOTE | 2025-02-01 21:44 | P.PN ---
Subjective Progress Note Date: 02/01/25 Principal diagnosis: Lung mass, FARHANA In f/u today pt is still having significant difficulty breathing, SOB with speaking, weak, can't hardly move under his own power, rt rib/axilla pain, radiated to shoulder. He is concerned for everything that is going on. Objective - Vital Signs Vital signs: Vital Signs Temp 97.6 F 02/01/25 12:00 Pulse 76 02/01/25 16:59 Resp 20 02/01/25 14:00 BP 133/76 02/01/25 12:00 Pulse Ox 94 L 02/01/25 16:43 FiO2 75 02/01/25 16:43 Intake & Output 01/31/25 02/01/25 02/01/25 18:59 06:59 18:59 Intake Total 240 Output Total 1200 500 675 Balance -960 -500 -675 Weight 74 kg Intake: Oral 240 Output: Urine 1200 500 675 Other: Voiding Method External Catheter External Catheter External Catheter - Constitutional Constitutional Comment(s): diaphoretic General appearance: Present: average body habitus, cooperative, mild distress - EENT Eyes: Present: anicteric sclerae, EOMI ENT: Present: hearing grossly normal - Neck Neck: Absent: lymphadenopathy - Respiratory Respiratory: bilateral: diminished (R>L) - Cardiovascular Rhythm: regular Heart sounds: normal: S1, S2 Abnormal Heart Sounds: Absent: systolic murmur, diastolic murmur, rub, S3 Gallop, S4 Gallop, click, other - Peripheral edema leg Peripheral Edema: bilateral: None - Gastrointestinal General gastrointestinal: Present: normal bowel sounds, soft - Integumentary Integumentary Comment(s): rubor - Neurologic Neurologic: Present: CNII-XII intact - Musculoskeletal Musculoskeletal: Present: generalized weakness - Psychiatric Psychiatric: Present: A&O x's 3, appropriate affect, intact judgment & insight - Labs CBC & Chem 7: 01/29/25 23:18 02/01/25 04:37 Labs: Abnormal Lab Results - Last 24 Hours (Table) 01/31/25 02/01/25 02/01/25 Range/Units 18:16 04:37 11:32 Potassium 3.1 L (3.5-5.1) mmol/L BUN 38 H (9-20) mg/dL Glucose 227 H (74-99) mg/dL POC Glucose (mg/dL) 331 H (70-110) mg/dL 02/01/25 Range/Units 16:17 Potassium (3.5-5.1) mmol/L BUN (9-20) mg/dL Glucose (74-99) mg/dL POC Glucose (mg/dL) 266 H (70-110) mg/dL Microbiology - Last 24 Hours (Table) 01/30/25 01:52 Blood Culture Gram Stain - Preliminary Blood Blood Culture - Preliminary Streptococcus intermedius Molecular ID Assessment and Plan (1) SOB (shortness of breath) Current Visit: Yes Status: Acute Priority: High Code(s): R06.02 - SHORTNESS OF BREATH SNOMED Code(s): 955898673 (2) Lung mass Current Visit: Yes Status: Acute Priority: High Code(s): R91.8 - OTHER NONSPECIFIC ABNORMAL FINDING OF LUNG FIELD SNOMED Code(s): 060692854 Plan: Shortness of breath - Patient is short of breath even with speaking. This is going to make it challenging for a biopsy. Pulmonary has seen pt, pending stability. Pending NM bone scan and CT AP as well to see if there are any other targets. Will discuss with Interventional Radiology and have them review the images for any possible percutaneous biopsy. Of course pending patient's respiratory status. -Cont with Pulm recs for treating SOB. Lung mass -Discussed concerning findings on imaging with pt -He is agreeable to pursue biopsy, additional imaging to obtain diagnosis -Pending nuclear medicine bone scan, MRI of the brain. Added CT of the abdomen and pelvis to complete staging. May identify a potential target for biopsy. Doctor attests: I performed a history and physical examination of this patient, developed impression and plan of care. Discussed with dictator. I agree with dictators note, documented as a scribe.
[2025-02-02 06:23] LABS: Glucose,Whole Blood 156 mg/dL (70-110)
[2025-02-02] MEDS: BARIUM SULFATE 2% - 450 ML ORAL.SUSP BOTTLE PO PRN (08:56)
[2025-02-02 11:59] LABS: Glucose,Whole Blood 178 mg/dL (70-110)
[2025-02-02] MEDS: diphenhydrAMINE 50 MG CAP PO ONE (12:18)
--- NOTE | 2025-02-02 13:07 | P.CONS ---
History of Present Illness - Reason for Consult Consult date: 02/02/25 Right lung mass Requesting physician: Shayne Merritt - Chief Complaint "I have back pain" - History of Present Illness Mr. Aguilar is a 64-year-old male who presents with a RUL mass with 3rd/4th rib destruction. The patient presented to the hospital with MARSH and progressively worsening right chest wall pain. CTA chest on 01/30/2025 demonstrated a 6.9 cm RUL mass with inv asion of the 3rd and 4th ribs. He has been on HF oxygen (50L/min) and has not been stable for a biopsy as of yet. CT abdomen/pelvis is planned for today. MRI brain has been ordered. Today, he notes he is doing okay. His medical regimen is reducing but not eliminating his right-sided pains. He has never had cancer or radiation therapy. He does not have a pacemaker. Review of Systems as per HPI Past Medical History Past Medical History: No Reported History History of Any Multi-Drug Resistant Organisms: None Reported Past Surgical History: Hernia Repair Additional Past Surgical History / Comment(s): 2011 and 2015 mesh hernia repairs bilateral Past Psychological History: No Psychological Hx Reported Smoking Status: Current every day smoker, Heavy tobacco smoker Past Alcohol Use History: None Reported Past Drug Use History: None Reported - Past Family History Mother Family Medical History: CVA/TIA Father Family Medical History: Cancer Additional Family Medical History / Comment(s): lymphoma Medications and Allergies Home Medications Medication Instructions Recorded Confirmed Type Acetaminophen [Tylenol Arthritis] 1,300 mg PO Q6H PRN 01/30/25 01/30/25 History Cyclobenzaprine [Flexeril] 10 mg PO BID 01/30/25 01/30/25 History Ibuprofen [Motrin Ib] 800 mg PO Q6H PRN 01/30/25 01/30/25 History Simvastatin [Zocor] 20 mg PO HS 01/30/25 01/30/25 History amLODIPine [Norvasc] 10 mg PO DAILY 01/30/25 01/30/25 History hydroCHLOROthiazide [Hydrodiuril] 25 mg PO DAILY 01/30/25 01/30/25 History traMADol HCL 50 mg PO BID 01/30/25 01/30/25 History Allergies Allergy/AdvReac Type Severity Reaction Status Date / Time peanut Allergy Swelling Verified 01/29/25 23:27 shellfish derived [Shellfish] Allergy Anaphylaxis Verified 01/29/25 23:27 soybean Allergy Swelling Verified 01/29/25 23:27 wheat Allergy Swelling Verified 01/29/25 23:27 Physical Exam Vitals: Vital Signs Temp Pulse Pulse Resp BP Pulse Ox FiO2 02/02/25 12:48 76 02/02/25 12:35 75 02/02/25 12:33 78 02/02/25 11:03 98.2 F 84 22 158/86 93 L 74 02/02/25 09:55 74 02/02/25 09:45 74 02/02/25 09:39 92 L 75 02/02/25 09:35 78 02/02/25 08:06 97.9 F 74 20 156/90 97 73 02/02/25 04:13 94 L 73 02/02/25 03:21 97.8 F 76 20 145/80 95 74 02/02/25 00:33 96 74 02/02/25 00:00 98.0 F 83 18 138/77 96 74 02/01/25 21:48 73 20 02/01/25 21:42 71 20 02/01/25 21:35 69 20 95 75 02/01/25 19:51 97.7 F 76 18 148/88 94 L 73 02/01/25 16:59 76 02/01/25 16:43 72 94 L 75 02/01/25 16:00 97.6 F 80 20 94 L 94 02/01/25 14:00 80 20 Intake and Output 02/01/25 02/02/25 02/02/25 22:59 06:59 14:59 Intake Total 10 Output Total 425 500 Balance -415 -500 Intake: IV 10 Invasive Line 3 10 Output: Urine 425 500 Other: Voiding Method External Catheter External Catheter External Catheter # Voids 1 1 Weight 77 kg - Constitutional General appearance: mild distress - Respiratory on HF oxygen Results CBC & Chem 7: 01/29/25 23:18 02/01/25 04:37 Labs: Abnormal Lab Results - Last 24 Hours (Table) 02/01/25 02/01/25 02/02/25 Range/Units 16:17 19:44 06:22 POC Glucose (mg/dL) 266 H 303 H 156 H (70-110) mg/dL Hemoglobin A1c (<=6.0) % Procalcitonin (0.02-0.50) ng/mL 02/02/25 02/02/25 02/02/25 Range/Units 07:18 07:18 11:58 POC Glucose (mg/dL) 178 H (70-110) mg/dL Hemoglobin A1c 6.6 H (<=6.0) % Procalcitonin 2.44 H (0.02-0.50) ng/mL Microbiology - Last 24 Hours (Table) 01/30/25 01:52 Blood Culture Gram Stain - Final Blood Blood Culture - Final Streptococcus intermedius Molecular ID Assessment and Plan Assessment: Mr. Aguilar is a 64-year-old male who presents with a RUL mass with 3rd/4th rib destruction. Plan: The patient has a concerning RUL mass. We will await tissue biopsy. Once malignancy is confirmed, he would be a candidate for palliative/definitive radiation therapy depending on work-up/staging. Alexandre Pena MD Radiation Oncology Time with Patient: Greater than 30
--- NOTE | 2025-02-02 13:35 | CT ---
EXAMINATION TYPE: CT abdomen pelvis w con DATE OF EXAM: 02/02/2025 COMPARISON: CTA chest dated 01/30/2025 CLINICAL INDICATION: Male, 64 years old with history of lung lesions, LAD, staging; PHH, LUNG LESIONS . lad, staging. TECHNIQUE: Performed with Oral Contrast and with IV Contrast, patient injected with 100ml mL of Isovue 300. CT DLP: 856.[address] CTDI: mGy Automated exposure control for dose reduction was used. FINDINGS: There are moderate bilateral lower lobe consolidative infiltrates. There is a small to moderate right effusion and a tiny left pleural effusion. The gallbladder is normal without distention, wall thickening, pericholecystic fluid or gallstones. T here is no biliary ductal dilatation. There are 3 ill-defined hypodense lesions in the right lobe of the liver the largest of which is 2 cm . There are suspicious for metastatic disease. There is no focal mass or organomegaly involving the p ancreas, spleen or adrenal glands. There is no solid renal mass or hydronephrosis and there is homogeneous contrast enhancement of the r enal parenchyma. The caliber the abdominal aorta is normal is no retroperitoneal adenopathy or hemorr etta. The bowel loops are normal in caliber and there is no evidence of dilatation or obstruction. No infla mmatory changes are identified in the bowel wall or mesentery. There is a small amount of free intraperitoneal fluid adjacent to the liver. There is no free air. There is no pelvic abscess or adenopathy. There are no focal osseous lesions. There is severe osteoarthritis of the left hip with obliteration of the joint space and marked deformity of the acetabulum and femoral head. IMPRESSION: 1. Ill-defined hypodense lesions in the right lobe of liver suspicious for metastatic disease. 2. Mild ascites adjacent to liver. 3. Moderate right pleural effusion and small left pleural effusion and bibasilar opacities consistent with pneumonia. 4. Marked osteoarthritis of left hip but no destructive osseous lesions. [facility], , 02/02/2025 1:32 PM
--- NOTE | 2025-02-02 14:16 | P.PN ---
Subjective Progress Note Date: 02/02/25 Principal diagnosis: Lung mass. This is a pleasant 64-year-old male patient with a known history of hyperlipidemia, hypertension, recent right shoulder, back and right hip pain. He had been seen and evaluated by medicine and orthopedics and was scheduled for right hip surgery on February 09, 2025. His pain however was getting so bad he could barely walk and was getting dizzy and falling. He presented to the emergency room here late last night. Chest x-ray revealed airspace c onsolidation in the right lung apex and bilateral lower lobes, consistent with multilobar pneumonia. Trace right pleural effusion. CT angiogram of the chest revealed a large right pleural effusion. A 6.9 by 2.7 cm right upper lobe pulmonary mass likely result representing neoplasm. There is extension into the adjacent right 3rd and 4th rib. Reactive right sided lymphadenopathy. Ultrasound of the right chest revealed only a trace right pleural effusion measuring 1.6 cm. White count 6.8. Hemoglobin 11.8. Platelets 139. Sodium 137. Potassium 2.4. Bicarb 21. BUN 91. Creatinine 2.23. Glucose 131. AST 65. ALT 42. Troponin 0.089, 0.101. proBNP 5990. Procalcitonin 64.5. D-dimer greater than 34.1. The patient has been quite hypoxemic and is currently on BiPAP 12/6 and 70% FiO2 to maintain O2 saturations in the low 90s. He is seen in consultation in the emergency department. He is currently sitting up in a recliner. Remains on BiPAP. His is at the bedside and provides most of the information. He does have a nearly 50-year pack per day smoking history. He has not been seen by computing services director in the past. He has not had any low-dose CT scans for cancer screening. He has lost 23 pounds in the past several months. Most of his right shoulder and chest pain began in September 2024. The patient is seen today January 31, 2025 in follow-up on the selective care unit. He is currently sitting up in bed. Awake and alert. He is still requiring BiPAP 12/6 and 70% FiO2 to maintain O2 saturations in the low 90s. Blood culture showing gram-positive cocci in chains. He is currently on ceftriaxone and azithromycin. He remains on DuoNeb inhalations, Pulmicort and performance inhalations, Solu-Medrol. NicoDerm patch in place. Lovenox for DVT prophylaxis. Sodium 136. Potassium 2.7. Bicarb 26. BUN 51. Creatinine 1.03. Urinalysis clean. The patient is seen today February 01, 2025 in follow-up on the selective care unit. He is awake and alert in no acute distress. Sitting up in bed. Maintaining O2 saturations in the 90s on Airvo high flow oxygen at 50 L and 65% FiO2. Blood culture showing Streptococcus intermedius. Sodium 139. Potassium 3.9. Bicarb 26. BUN 38. Creatinine 0.83. Glucose 227. He remains on DuoNeb inhalations, Pulmicort and Perforomist inhalations, IV Solu-Medrol. NicoDerm patch in place. Antibiotics in the form of ceftriaxone. There is a photopenic defect within the right posterior rib. An aggressive metastasis is not excluded. Right humeral head and left femoral head and increased uptake slightly greater than expected for typical degenerative change. Additional areas of uptake more likely related to degenerative joint changes. Progress note dated February 02, 2025. 64-year-old male seen today in room 370. He is currently on Airvo, with settings at 50 L/min, and FiO2 to 75%. The patient had bone scan dated February 01, 2025. He apparently is scheduled for possible MRI of the brain today. The patient was initially seen for right upper lobe mass. In addition, the nurses tell us that he is going for CT scan of the abdomen and pelvis, to complete the staging and workup. He is suspected to have a malignancy, in the right upper lobe. Current labs include a glucose of 178, hemoglobin A1c of 6.6, and procalcitonin level of 2.44. Blood cultures are positive for Streptococcus intermedius. The patient CT scan of the abdomen, shows some lesions in the right lobe of the liver, consistent with metastatic disease, mild ascites, a moderate right-sided pleural effusion, and small left-sided pleural effusion. Marked osteoarthritis of the left hip but no destructive osseous lesions. Objective - Vital Signs Vital signs: Vital Signs Temp 98.2 F 02/02/25 11:03 Pulse 84 02/02/25 13:07 Resp 22 02/02/25 11:03 BP 158/86 02/02/25 11:03 Pulse Ox 93 L 02/02/25 11:03 FiO2 75 02/02/25 12:35 Intake & Output 02/01/25 02/02/25 02/02/25 18:59 06:59 18:59 Intake Total 10 Output Total 604 995 5768 Balance -623 -333 -1000 Weight 77 kg Intake: IV 10 Invasive Line 3 10 Output: Urine 663 491 0783 Other: Voiding Method External Catheter External Catheter External Catheter # Voids 1 - Exam No acute distress, oriented 3. Currently on Airvo. HEENT examination is grossly unremarkable. Mucous membranes are moist. No oral lesions. Neck supple. Full range of motion. No adenopathy thyromegaly or neck vein distention. Cardiovascular examination reveals regular rhythm rate. S1-S2 normal. No S3 or S4. No discernible murmur noted. Lungs reveal moderate bilateral scattered rhonchi. No wheezes. No crackles. Breath sounds are equal bilaterally. Abdomen soft bowel sounds are heard. No masses or tenderness. Extremities are intact. No cyanosis clubbing or edema. Skin is without rash or lesion. Neurologic examination is brief but nonfocal. - Labs CBC & Chem 7: 01/29/25 23:18 02/01/25 04:37 Labs: Abnormal Lab Results - Last 24 Hours (Table) 02/01/25 02/01/25 02/02/25 Range/Units 16:17 19:44 06:22 POC Glucose (mg/dL) 266 H 303 H 156 H (70-110) mg/dL Hemoglobin A1c (<=6.0) % Procalcitonin (0.02-0.50) ng/mL 02/02/25 02/02/25 02/02/25 Range/Units 07:18 07:18 11:58 POC Glucose (mg/dL) 178 H (70-110) mg/dL Hemoglobin A1c 6.6 H (<=6.0) % Procalcitonin 2.44 H (0.02-0.50) ng/mL Microbiology - Last 24 Hours (Table) 01/30/25 01:52 Blood Culture Gram Stain - Final Blood Blood Culture - Final Streptococcus intermedius Molecular ID Assessment and Plan Assessment: Generalized weakness, dizziness and falls suspect secondary to metastatic lung cancer and bacteremia. A 6.9 by 2.7 cm right upper lobe pulmonary mass likely result representing neoplasm. There is extension into the adjacent right 3rd and 4th rib. Reactive right sided lymphadenopathy. Bone scan revealed a photopenic defect within the right posterior rib. An aggressive metastasis is not excluded. Right humeral head and left femoral head with increased uptake slightly greater than expected for typical degenerative changes. Multiple metastatic deposits, in the right lobe of the liver. Bacteremia secondary to Streptococcus intermedius. Acute hypoxemic respiratory failure secondary to above. Hypokalemia. Significant weight loss of 23 pounds over the past several months. 45 year pack/day smoking history. Right shoulder, chest and hip pain. . Troponin leak. Hypertension. Plan: Plan dated February 02, 2025. The bone scan showed evidence of metastatic disease. The CT scan of the abdomen and pelvis showed metastatic disease to the right lobe of the liver. MRI scan is currently pending. The patient remains on Airvo, with settings of 50 L/min, FiO2 75%. The patient was admitted with a large right upper lobe mass. He will eventually need a biopsy. We will continue to follow. Prognosis is guarded. Labs, x-rays, and all medications are reviewed. Dictation was produced using [employer] software. Please excuse any grammatical, word or spelling errors. Time with Patient: Less than 30
--- NOTE | 2025-02-02 15:27 | P.PN ---
Progress Note - Text Progress Note Date: 02/02/25 Chief Complaint: Short of breath Pleasant 64-year-old patient with follows with Dr. Villela. Chronic medical condition include hypertension, hyperlipidemia,. Patient also follows with orthopedics Dr. Vázquez. Patient is due for surgery on his right hip on February 09. Also has problems with cervical and lumbar spine. Also is followed with Dr. Carvajal, from OA. Patient been having significant pain in all these joints. Including both the shoulders. Patient has been losing weight has lost over 20 pounds. Has been more short of breath for over 3 weeks. Is a smoker. Cough clear sputum. Poor appetite. Patient is on a BiPAP. Patient's and son at the bedside. January 31: Admitted with pneumonia, severe COPD exacerbation, acute hypoxic respiratory failure, newly discovered right upper lung mass. Patient remains on BiPAP. Chest ultrasound does not show much fluid. Awaiting further input from Dr. Pelayo. Remains on IV ceftriaxone Zithromax IV Solu-Medrol. IV fluids. Discussed with the patient and at the bedside. Creatinine much better February 01: Seen this morning. Reclining in bed. On Airvo. 50 L 65%. Short of breath, but a bit better. Was on liquid diet. Advance to a soft diet. Remains on nebulized bronchodilators IV Solu-Medrol IV ceftriaxone. Bone scan was done. Somewhat nonspecific. Patient's current pulmonary status now stable for biopsy. Seen by orthopedics team. Elective total hip arthroplasty has been canceled. Eating well February 02: Patient n.p.o. this morning for CT scan abdomen chest pelvis. Remains on IV ceftriaxone IV cell Solu-Medrol. DuoNeb. at the bedside. CT abdomen pelvis showed ill-defined hypodense lesion in the right lobe of the liver suspicious for metastatic disease. Remains on Airvo Active Medications Albuterol/Ipratropium (Ipratropium-Albuterol 3 Ml Neb) 3 ml INHALATION RT-QID [facility] Last Admin: 02/02/25 12:33 Dose: 3 ml Albuterol/Ipratropium (Ipratropium-Albuterol 3 Ml Neb) 3 ml INHALATION RT-Q2H PRN PRN Reason: Shortness Of Breath Or Wheezing Budesonide (Budesonide 1 Mg/2 Ml Nebu) 1 mg INHALATION RT-BID [facility] Last Admin: 02/02/25 09:35 Dose: 1 mg Cyclobenzaprine HCl (Cyclobenzaprine 10 Mg Tab) 10 mg PO BID [facility] Last Admin: 02/02/25 08:12 Dose: 10 mg Dextrose/Water (Dextrose 50% Syringe 50 Ml) 25 ml IVP PER PROTOCOL PRN; Protocol PRN Reason: Hypoglycemia Dextrose/Water (Dextrose 50% Syringe 50 Ml) 50 ml IVP PER PROTOCOL PRN; Protocol PRN Reason: Hypoglycemia Docusate Sodium (Docusate 100 Mg Cap) 100 mg PO BID [facility] Last Admin: 02/02/25 08:12 Dose: Not Given Enoxaparin Sodium (Enoxaparin 40 Mg/0.4 Ml Syringe) 40 mg SQ DAILY [facility] Last Admin: 02/02/25 08:12 Dose: 40 mg Famotidine (Famotidine 20 Mg Tab) 20 mg PO DAILY [facility] Last Admin: 02/02/25 08:12 Dose: 20 mg Formoterol Fumarate (Formoterol Fumarate 20 Mcg/2 Ml Nebu) 20 mcg INHALATION RT-BID [facility] Last Admin: 02/02/25 09:35 Dose: 20 mcg Hydromorphone HCl (Hydromorphone 1 Mg/Ml 1 Ml Syringe) 1 mg IVP Q3H PRN PRN Reason: Pain Last Admin: 02/01/25 14:36 Dose: 1 mg Lactated Ringer's (Lactated Ringers) 1,000 mls @ 100 mls/hr IV .Q10H [facility] Last Admin: 02/02/25 12:04 Dose: 100 mls/hr Ceftriaxone Sodium 2 gm/ (Sodium Chloride) 50 mls @ 100 mls/hr IVPB Q24H [facility]; Protocol Last Admin: 02/02/25 06:06 Dose: 100 mls/hr Insulin Human Lispro (Insulin Lispro (Humalog) 100 Unit/Ml 10 Ml Vl) 0 unit SQ ACHS [facility]; Protocol Last Admin: 02/02/25 12:17 Dose: 2 unit Methylprednisolone Sodium Succinate (Methylprednisolone Sod Succi 125 Mg/2 Ml Vial) 60 mg IV Q8H [facility] Last Admin: 02/02/25 09:57 Dose: 60 mg Naloxone HCl (Naloxone 0.4 Mg/Ml 1 Ml Vial) 0.2 mg IV Q2M PRN PRN Reason: Opioid Reversal Nicotine (Nicotine 21mg/24hr Patch) 1 patch TRANSDERM DAILY [facility] Last Admin: 02/02/25 08:11 Dose: 1 patch Ondansetron HCl (Ondansetron 4 Mg/2 Ml Vial) 4 mg IVP Q8HR PRN PRN Reason: Nausea And Vomiting Potassium Chloride (Potassium Chloride Er 20 Meq Tab.Er) 20 meq PO BID [facility] Last Admin: 02/02/25 08:11 Dose: 20 meq Tramadol HCl (Tramadol 50 Mg Tab) 50 mg PO BID [facility] Last Admin: 02/02/25 08:11 Dose: 50 mg Social history: Smokes a pack a day for close to 46 years. Lives with his and 2 daughters. Patient is a [employer] Physical examination: VITAL SIGNS: 98.2, 84, 22, 158 x 86, 93% on Airvo 50 L and 74% FiO2 GENERAL: BMI 22.9,. Sitting up in bed, short of breath EYES: Pupils equal. Conjunctiva jill l. HEENT: External appearance of nose and ears normal, oral cavity grossly normal. NECK: JVD unable to assess; masses not palpable. HEART: First and second heart sounds are normal; no edema. LUNGS: Respiratory rate increased,, unable to speak in full sentences, diminished breath sounds. ABDOMEN: Soft, nontender, liver spleen not palpable, no masses palpable. PSYCH: [Alert and oriented x3; mood and affect anxious MUSCULOSKELETAL:No Clubbing/cyanosis;muscles-grossly intact INVESTIGATIONS, reviewed in the clinical context: CT abdomen pelvis: Ill-defined hypodense lesion in the right lobe of the liver suspicious for metastatic disease. Mild ascites adjacent to the liver. Moderate right pleural effusion. Some bibasilar opacities. Marked osteoarthritis of the left hip. February 02: Procalcitonin 2.44 UA: Trace protein Bone scan: Nonspecific potassium 3.9 creatinine 0.83 Renal ultrasound: Unremarkable January 31 potassium 2.7 creatinine 1.03 January 29, 2025: White count 6.8 hemoglobin 11.8 platelets 139 sodium 137 potassium 2.4 BUN 91 creatinine 2.23 lactic acid 4.9 repeat 1.8 AST 65 ALT 42 Troponin I 0.089, 0.101 procalcitonin 64.5 EKG tracing personally reviewed by me-normal sinus rhythm. Nonspecific ST-T wave changes Chest x-ray film personally reviewed by me-bibasilar infiltrates. Right upper area possible mass CT angiogram chest with IV contrast: Large right pleural effusion diffuse changes of COPD right upper lobe pulmonary mass Assessment plan: - Pneumonia suspect gram-negative organism: IV ceftriaxone, Zithromax Acute severe COPD exacerbation in a current smoker, causing hypoxic respiratory failure: Slow to respond IV Solu-Medrol. DuoNeb. Nebulized Perforomist - Acute hypoxic respiratory failure from underlying COPD, pneumonia: Slow to respond On Airvo. 50/65 - Right upper lung mass with right pleural effusion strongly suspicious for underlying malignancy in a smoker. Will need a biopsy/bronchoscopy. Currently pulmonary status not stable for the same Pulmonary following -Right pleural effusion suspicious for secondary to malignancy. Ultrasound chest does not show much pleural fluid.-Follow with pulmonary - Essential hypertension Amlodipine. - Hyperlipidemia Zocor 20 mg nightly - Osteoarthritis in multiple joints including cervical spine, lumbar spine, right hip bilateral shoulders. With some neuropathic pain. Patient does follow outpatient with Dr. Tima Vázquez. Was due for surgery on hip hip on February 09.-Now canceled Orthopedics-Dr. Vázquez - Normocytic anemia likely of chronic disease - Severe hypokalemia,: Replaced Replace potassium - Acute kidney injury. Patient has been taking significant amount of Motrin at home. Likely ATN: Improved Stop any NSAIDs. Renal ultrasound. Unremarkable UA: Trace protein - Full code Discussed with patient and the Past Medical History Past Medical History: No Reported History History of Any Multi-Drug Resistant Organisms: None Reported Past Surgical History: Hernia Repair Additional Past Surgical History / Comment(s): 2012 and 2016 mesh hernia repairs bilateral Past Psychological History: No Psychological Hx Reported Smoking Status: Current every day smoker, Heavy tobacco smoker Past Alcohol Use History: None Reported Past Drug Use History: None Reported
[2025-02-02 16:45] LABS: Glucose,Whole Blood 162 mg/dL (70-110)
[2025-02-02 20:01] LABS: Glucose,Whole Blood 244 mg/dL (70-110)
[2025-02-03 06:14] LABS: Glucose,Whole Blood 162 mg/dL (70-110)
[2025-02-03 11:34] LABS: Glucose,Whole Blood 168 mg/dL (70-110)
[2025-02-03] MEDS: droNABinol 2.5 MG CAP PO SCH (13:52)
--- NOTE | 2025-02-03 14:26 | P.PN ---
Progress Note - Text Progress Note Date: 02/03/25 Chief Complaint: Short of breath Pleasant 64-year-old patient with follows with Dr. Villela. Chronic medical condition include hypertension, hyperlipidemia,. Patient also follows with orthopedics Dr. Vázquez. Patient is due for surgery on his right hip on February 09. Also has problems with cervical and lumbar spine. Also is followed with Dr. Carvajal, from OA. Patient been having significant pain in all these joints. Including both the shoulders. Patient has been losing weight has lost over 20 pounds. Has been more short of breath for over 3 weeks. Is a smoker. Cough clear sputum. Poor appetite. Patient is on a BiPAP. Patient's and son at the bedside. January 31: Admitted with pneumonia, severe COPD exacerbation, acute hypoxic respiratory failure, newly discovered right upper lung mass. Patient remains on BiPAP. Chest ultrasound does not show much fluid. Awaiting further input from Dr. Pelayo. Remains on IV ceftriaxone Zithromax IV Solu-Medrol. IV fluids. Discussed with the patient and at the bedside. Creatinine much better February 01: Seen this morning. Reclining in bed. On Airvo. 50 L 65%. Short of breath, but a bit better. Was on liquid diet. Advance to a soft diet. Remains on nebulized bronchodilators IV Solu-Medrol IV ceftriaxone. Bone scan was done. Somewhat nonspecific. Patient's current pulmonary status now stable for biopsy. Seen by orthopedics team. Elective total hip arthroplasty has been canceled. Eating well February 02: Patient n.p.o. this morning for CT scan abdomen chest pelvis. Remains on IV ceftriaxone IV cell Solu-Medrol. DuoNeb. at the bedside. CT abdomen pelvis showed ill-defined hypodense lesion in the right lobe of the liver suspicious for metastatic disease. Remains on Airvo February 03: Remains on Airvo. Decreased appetite. Spoke to the . Bring some food from home. Adding Marinol. Because of pulmonary status cannot get a lung biopsy. Liver lesion probably too small for biopsy. CT scan reviewed with Dr. Brock from pulmonary. Minimal pulmonary effusion. Remains on IV Solu-Medrol. DuoNeb. Ensure added Active Medications Albuterol/Ipratropium (Ipratropium-Albuterol 3 Ml Neb) 3 ml INHALATION RT-QID [facility] ENRIQUE Last Admin: 02/03/25 12:06 Dose: 3 ml Albuterol/Ipratropium (Ipratropium-Albuterol 3 Ml Neb) 3 ml INHALATION RT-Q2H PRN PRN Reason: Shortness Of Breath Or Wheezing Budesonide (Budesonide 1 Mg/2 Ml Nebu) 1 mg INHALATION RT-BID [facility] Last Admin: 02/03/25 08:09 Dose: 1 mg Cyclobenzaprine HCl (Cyclobenzaprine 10 Mg Tab) 10 mg PO BID [facility] Last Admin: 02/03/25 08:33 Dose: 10 mg Dextrose/Water (Dextrose 50% Syringe 50 Ml) 25 ml IVP PER PROTOCOL PRN; Protocol PRN Reason: Hypoglycemia Dextrose/Water (Dextrose 50% Syringe 50 Ml) 50 ml IVP PER PROTOCOL PRN; Protocol PRN Reason: Hypoglycemia Docusate Sodium (Docusate 100 Mg Cap) 100 mg PO BID [facility] Last Admin: 02/03/25 08:33 Dose: 100 mg Dronabinol (Dronabinol 2.5 Mg Cap) 2.5 mg PO AC-BID [facility] Last Admin: 02/03/25 13:52 Dose: 2.5 mg Enoxaparin Sodium (Enoxaparin 40 Mg/0.4 Ml Syringe) 40 mg SQ DAILY [facility] Last Admin: 02/03/25 08:33 Dose: 40 mg Famotidine (Famotidine 20 Mg Tab) 20 mg PO DAILY [facility] Last Admin: 02/03/25 08:33 Dose: 20 mg Formoterol Fumarate (Formoterol Fumarate 20 Mcg/2 Ml Nebu) 20 mcg INHALATION RT-BID [facility] Last Admin: 02/03/25 08:08 Dose: 20 mcg Hydromorphone HCl (Hydromorphone 1 Mg/Ml 1 Ml Syringe) 1 mg IVP Q3H PRN PRN Reason: Pain Last Admin: 02/02/25 15:30 Dose: 1 mg Lactated Ringer's (Lactated Ringers) 1,000 mls @ 50 mls/hr IV .Q20H [facility] Last Admin: 02/03/25 08:34 Dose: 100 mls/hr Ceftriaxone Sodium 2 gm/ (Sodium Chloride) 50 mls @ 100 mls/hr IVPB Q24H [facility]; Protocol Last Admin: 02/03/25 06:20 Dose: 100 mls/hr Insulin Human Lispro (Insulin Lispro (Humalog) 100 Unit/Ml 10 Ml Vl) 0 unit SQ ACHS [facility]; Protocol Last Admin: 02/03/25 13:52 Dose: 2 unit Methylprednisolone Sodium Succinate (Methylprednisolone Sod Succi 125 Mg/2 Ml Vial) 60 mg IV Q8H [facility] Last Admin: 02/03/25 10:15 Dose: 60 mg Naloxone HCl (Naloxone 0.4 Mg/Ml 1 Ml Vial) 0.2 mg IV Q2M PRN PRN Reason: Opioid Reversal Nicotine (Nicotine 21mg/24hr Patch) 1 patch TRANSDERM DAILY [facility] Last Admin: 02/03/25 08:33 Dose: 1 patch Ondansetron HCl (Ondansetron 4 Mg/2 Ml Vial) 4 mg IVP Q8HR PRN PRN Reason: Nausea And Vomiting Potassium Chloride (Potassium Chloride Er 20 Meq Tab.Er) 20 meq PO BID [facility] Last Admin: 02/03/25 08:33 Dose: 20 meq Tramadol HCl (Tramadol 50 Mg Tab) 50 mg PO BID [facility] Last Admin: 02/03/25 08:33 Dose: 50 mg Social history: Smokes a pack a day for close to 46 years. Lives with his and 2 daughters. 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 Sitting up in bed, short of breath EYES: Pupils equal. Conjunctiva jill l. HEENT: External appearance of nose and ears normal, oral cavity grossly normal. NECK: JVD unable to assess; masses not palpable. HEART: First and second heart sounds are normal; no edema. LUNGS: Respiratory rate increased,, unable to speak in full sentences, diminished breath sounds. ABDOMEN: Soft, nontender, liver spleen not palpable, no masses palpable. PSYCH: [Alert and oriented x3; mood and affect anxious MUSCULOSKELETAL:No Clubbing/cyanosis;muscles-grossly intact INVESTIGATIONS, reviewed in the clinical context: CT abdomen pelvis: Ill-defined hypodense lesion in the right lobe of the liver suspicious for metastatic disease. Mild ascites adjacent to the liver. Moderate right pleural effusion. Some bibasilar opacities. Marked osteoarthr itis of the left hip. February 02: Procalcitonin 2.44 UA: Trace protein Bone scan: Nonspecific potassium 3.9 creatinine 0.83 Renal ultrasound: Unremarkable January 31 potassium 2.7 creatinine 1.03 January 29, 2025: White count 6.8 hemoglobin 11.8 platelets 139 sodium 137 potassium 2.4 BUN 91 creatinine 2.23 lactic acid 4.9 repeat 1.8 AST 65 ALT 42 Troponin I 0.089, 0.101 procalcitonin 64.5 EKG tracing personally reviewed by me-normal sinus rhythm. Nonspecific ST-T wave changes Chest x-ray film personally reviewed by me-bibasilar infiltrates. Right upper area possible mass CT angiogram chest with IV contrast: Large right pleural effusion diffuse changes of COPD right upper lobe pulmonary mass Assessment plan: - Pneumonia suspect gram-negative organism: IV ceftriaxone, Zithromax Acute severe COPD exacerbation in a current smoker, causing hypoxic respiratory failure: Slow to respond IV Solu-Medrol. DuoNeb. Nebulized Perforomist - Acute hypoxic respiratory failure from underlying COPD, pneumonia: Slow to respond On Airvo. 50/65 - Right upper lung mass with right pleural effusion strongly suspicious for underlying malignancy in a smoker. Will need a biopsy/bronchoscopy. Currently pulmonary status not stable for the same Pulmonary following -Minimal right pleural effusion Ultrasound chest does not show much pleural fluid.- - Essential hypertension Amlodipine. - Hyperlipidemia Zocor 20 mg nightly - Anorexia from an underlying multiple medical issues Marinol 2.5 mg twice daily. Add Ensure - Osteoarthritis in multiple joints including cervical spine, lumbar spine, right hip bilateral shoulders. With some neuropathic pain. Patient does follow outpatient with Dr. Tima Vázquez. Was due for surgery on hip hip on February 09.-Now canceled Orthopedics-Dr. Vázquez - Normocytic anemia likely of chronic disease - Severe hypokalemia,: Replaced Replace potassium - Acute kidney injury. Patient has been taking significant amount of Motrin at home. Likely ATN: Improved Stop any NSAIDs. Renal ultrasound. Unremarkable UA: Trace protein - Full code Discussed with patient and the . Marinol. Ensure. Past Medical History Past Medical History: No Reported History History of Any Multi-Drug Resistant Organisms: None Reported Past Surgical History: Hernia Repair Additional Past Surgical History / Comment(s): 2011 and 2016 mesh hernia repairs bilateral Past Psychological History: No Psychological Hx Reported Smoking Status: Current every day smoker, Heavy tobacco smoker Past Alcohol Use History: None Reported Past Drug Use History: None Reported
--- NOTE | 2025-02-03 14:49 | P.PN ---
Subjective Progress Note Date: 02/03/25 Principal diagnosis: Lung mass. This is a pleasant 64-year-old male patient with a known history of hyperlipidemia, hypertension, recent right shoulder, back and right hip pain. He had been seen and evaluated by medicine and orthopedics and was scheduled for right hip surgery on February 09, 2025. His pain however was getting so bad he could barely walk and was getting dizzy and falling. He presented to the emergency room here late last night. Chest x-ray revealed airspace c onsolidation in the right lung apex and bilateral lower lobes, consistent with multilobar pneumonia. Trace right pleural effusion. CT angiogram of the chest revealed a large right pleural effusion. A 6.9 by 2.7 cm right upper lobe pulmonary mass likely result representing neoplasm. There is extension into the adjacent right 3rd and 4th rib. Reactive right sided lymphadenopathy. Ultrasound of the right chest revealed only a trace right pleural effusion measuring 1.6 cm. White count 6.8. Hemoglobin 11.8. Platelets 139. Sodium 137. Potassium 2.4. Bicarb 21. BUN 91. Creatinine 2.23. Glucose 131. AST 65. ALT 42. Troponin 0.089, 0.101. proBNP 5990. Procalcitonin 64.5. D-dimer greater than 34.1. The patient has been quite hypoxemic and is currently on BiPAP 12/6 and 70% FiO2 to maintain O2 saturations in the low 90s. He is seen in consultation in the emergency department. He is currently sitting up in a recliner. Remains on BiPAP. His is at the bedside and provides most of the information. He does have a nearly 50-year pack per day smoking history. He has not been seen by communications programmer in the past. He has not had any low-dose CT scans for cancer screening. He has lost 23 pounds in the past several months. Most of his right shoulder and chest pain began in September 2024. The patient is seen today January 31, 2025 in follow-up on the selective care unit. He is currently sitting up in bed. Awake and alert. He is still requiring BiPAP 12/6 and 70% FiO2 to maintain O2 saturations in the low 90s. Blood culture showing gram-positive cocci in chains. He is currently on ceftriaxone and azithromycin. He remains on DuoNeb inhalations, Pulmicort and performance inhalations, Solu-Medrol. NicoDerm patch in place. Lovenox for DVT prophylaxis. Sodium 136. Potassium 2.7. Bicarb 26. BUN 51. Creatinine 1.03. Urinalysis clean. The patient is seen today February 01, 2025 in follow-up on the selective care unit. He is awake and alert in no acute distress. Sitting up in bed. Maintaining O2 saturations in the 90s on Airvo high flow oxygen at 50 L and 65% FiO2. Blood culture showing Streptococcus intermedius. Sodium 139. Potassium 3.9. Bicarb 26. BUN 38. Creatinine 0.83. Glucose 227. He remains on DuoNeb inhalations, Pulmicort and Perforomist inhalations, IV Solu-Medrol. NicoDerm patch in place. Antibiotics in the form of ceftriaxone. There is a photopenic defect within the right posterior rib. An aggressive metastasis is not excluded. Right humeral head and left femoral head and increased uptake slightly greater than expected for typical degenerative change. Additional areas of uptake more likely related to degenerative joint changes. Progress note dated February 02, 2025. 64-year-old male seen today in room 370. He is currently on Airvo, with settings at 50 L/min, and FiO2 to 75%. The patient had bone scan dated February 01, 2025. He apparently is scheduled for possible MRI of the brain today. The patient was initially seen for right upper lobe mass. In addition, the nurses tell us that he is going for CT scan of the abdomen and pelvis, to complete the staging and workup. He is suspected to have a malignancy, in the right upper lobe. Current labs include a glucose of 178, hemoglobin A1c of 6.6, and procalcitonin level of 2.44. Blood cultures are positive for Streptococcus intermedius. The patient CT scan of the abdomen, shows some lesions in the right lobe of the liver, consistent with metastatic disease, mild ascites, a moderate right-sided pleural effusion, and small left-sided pleural effusion. Marked osteoarthritis of the left hip but no destructive osseous lesions. Progress note dated February 03, 2025. 64-year-old male seen today in room 370. He was initially admitted with a diagnosis of right upper lobe mass. It appears that he has bronchogenic cancer. Heavy smoker in the past. In addition, CT scan of the abdomen and pelvis, showed what appears to be multiple hepatic metastasis. Interventional radiology was consulted for possible CT-guided fine-needle aspiration of his liver lesions , but they said that the lesions were too small, too deep. The patient will eventually need a lung biopsy, although his respiratory status is very tenuous. He continues on Airvo, at 50 L/min, with FiO2 60%. He is getting LR at 100 cc an hour to be dropped back to 50 cc an hour. He is getting saline at 10 cc an hour. No new labs today. I did speak to the patient's about the results of a CT scan of the abdomen and pelvis. Objective - Vital Signs Vital signs: Vital Signs Temp 98.4 F 02/03/25 04:00 Pulse 73 02/03/25 12:14 Resp 20 02/03/25 12:00 BP 153/82 02/03/25 12:00 Pulse Ox 92 L 02/03/25 12:07 FiO2 55 02/03/25 12:07 Intake & Output 02/02/25 02/03/25 02/03/25 18:59 06:59 18:59 Output Total 1000 900 850 Balance -1000 -900 -850 Weight 79 kg Output: Urine 1000 900 850 Other: Voiding Method External Catheter External Catheter External Catheter - Exam No acute distress, oriented 3. Currently on Airvo. HEENT examination is grossly unremarkable. Mucous membranes are moist. No oral lesions. Neck supple. Full range of motion. No adenopathy thyromegaly or neck vein distention. Cardiovascular examination reveals regular rhythm rate. S1-S2 normal. No S3 or S4. No discernible murmur noted. Lungs reveal moderate bilateral scattered rhonchi. No wheezes. No crackles. Breath sounds are equal bilaterally. Abdomen soft bowel sounds are heard. No masses or tenderness. Extremities are intact. No cyanosis clubbing or edema. Skin is without rash or lesion. Neurologic examination is brief but nonfocal. - Labs CBC & Chem 7: 01/29/25 23:18 02/01/25 04:37 Labs: Abnormal Lab Results - Last 24 Hours (Table) 02/02/25 02/02/25 02/03/25 Range/Units 16:43 19:59 06:11 POC Glucose (mg/dL) 162 H 244 H 162 H (70-110) mg/dL 02/03/25 Range/Units 11:32 POC Glucose (mg/dL) 168 H (70-110) mg/dL Assessment and Plan Assessment: Generalized weakness, dizziness and falls suspect secondary to metastatic lung cancer and bacteremia. A 6.9 by 2.7 cm right upper lobe pulmonary mass likely result representing neoplasm. There is extension into the adjacent right 3rd and 4th rib. Reactive right sided lymphadenopathy. Bone scan revealed a photopenic defect within the right posterior rib. An aggressive metastasis is not excluded. Right humeral head and left femoral head with increased uptake slightly greater than expected for typical degenerative changes. Multiple metastatic deposits, in the right lobe of the liver. Bacteremia secondary to Streptococcus intermedius. Acute hypoxemic respiratory failure secondary to above. Hypokalemia. Significant weight loss of 23 pounds over the past several months. 45 year pack/day smoking history. Right shoulder, chest and hip pain. . Troponin leak. Hypertension. Plan: Plan dated February 02, 2025. The bone scan showed evidence of metastatic disease. The CT scan of the abdomen and pelvis showed metastatic disease to the right lobe of the liver. MRI scan is currently pending. The patient remains on Airvo, with settings of 50 L/min, FiO2 75%. The patient was admitted with a large right upper lobe mass. He will eventually need a biopsy. We will continue to follow. Prognosis is guarded. Labs, x-rays, and all medications are reviewed. Dictation was produced using [employer] Interactive software. Please excuse any grammatical, word or spelling errors. Plan dated February 03, 2025. The patient appears to have lung cancer, involving the right upper lobe, with multiple metastatic deposits. CT scan of the abdomen pelvis, showed multiple metastatic deposits in the right lobe of the liver. Interventional radiology was consulted for possible liver biopsy, but the lesions were too small and too deep. He will eventually need a lung biopsy, although his respiratory status at this time is tenuous, and he would likely end up on mechanical ventilation. Hopefully, we get him turned around, and much more stable. Labs, x-rays, and medications are reviewed. We will continue to follow the patient, make recommendations. Overall prognosis is guarded. I did have a conversation with the today about the results of the CT scan of the abdomen pelvis. MRI scan of the brain is pending, but has not been done yet, as the machine is down. Dictation was produced using [employer] Interactive software. Please excuse any grammatical, word or spelling errors. Time with Patient: Less than 30
[2025-02-03 16:34] LABS: Glucose,Whole Blood 221 mg/dL (70-110)
--- NOTE | 2025-02-03 19:12 | P.PN ---
Subjective Progress Note Date: 02/03/25 Reporting persisting SOB and weakness. Remains on airvo. Liver biopsy unable to be performed per IR Objective - Vital Signs Vital signs: Vital Signs Temp 98.1 F 02/03/25 16:00 Pulse 82 02/03/25 16:00 Resp 20 02/03/25 16:00 BP 156/87 02/03/25 16:00 Pulse Ox 94 L 02/03/25 16:00 FiO2 55 02/03/25 16:00 Intake & Output 02/02/25 02/03/25 02/03/25 18:59 06:59 18:59 Output Total 1565 355 2444 Balance -1000 -900 -1000 Weight 79 kg Output: Urine 2499 361 3239 Other: Voiding Method External Catheter External Catheter External Catheter - Constitutional General appearance: Present: no acute distress - EENT Eyes: Present: anicteric sclerae, EOMI ENT: Present: hearing grossly normal - Respiratory Details: breathing labored - Cardiovascular Details: skin warm and dry - Gastrointestinal General gastrointestinal: Present: soft - Integumentary Integumentary: Absent: cyanotic - Musculoskeletal Musculoskeletal: Present: generalized weakness - Psychiatric Psychiatric: Present: A&O x's 3 - Labs CBC & Chem 7: 01/29/25 23:18 02/01/25 04:37 Labs: Abnormal Lab Results - Last 24 Hours (Table) 02/02/25 02/03/25 02/03/25 Range/Units 19:59 06:11 11:32 POC Glucose (mg/dL) 244 H 162 H 168 H (70-110) mg/dL 02/03/25 Range/Units 16:32 POC Glucose (mg/dL) 221 H (70-110) mg/dL Assessment and Plan (1) Lung mass Current Visit: Yes Status: Acute Priority: High Code(s): R91.8 - OTHER NONSPECIFIC ABNORMAL FINDING OF LUNG FIELD SNOMED Code(s): 463228875 (2) Pleural effusion Current Visit: Yes Status: Acute Priority: High Code(s): J90 - PLEURAL EFFUSION, NOT ELSEWHERE CLASSIFIED SNOMED Code(s): 19696726 (3) Pneumonia Current Visit: Yes Status: Acute Priority: High Code(s): J18.9 - PNEUMONIA, UNSPECIFIED ORGANISM SNOMED Code(s): 691526731 Plan: Shortness of breath, pneumonia - Patient is short of breath even with speaking. This is going to make it challenging for a biopsy. - Pulmonary has seen pt, pending improvement in breathing status before bronch/biopsy -Continues on airvo, abx, steroids and bronchodilalators Lung mass, liver lesions, bone mets: -Discussed concerning findings on imaging with pt -He is agreeable to pursue biopsy and further workup -Bone scan showing photopenic defect within right posterior rib. Right humeral head and left femoral head showing slight increased uptake. -CT abdomen pelvis showing ill-defined hypodense lesions in the right lobe of the liver. With mild ascites adjacent to liver. -IR consult placed for liver biopsy. Spoke with IR department, not recommending liver biopsy. Radiologist states there is a right rib lesion as well as a T12 lesion that was not noted in report -Consult placed to orthopedics to evaluate for bone biopsy of rib or T12 lesion -Brain MRI pending
[2025-02-03 20:00] LABS: Glucose,Whole Blood 208 mg/dL (70-110)
[2025-02-04 05:55] LABS: Glucose,Whole Blood 136 mg/dL (70-110)
[2025-02-04 07:52] LABS: ALT 35 U/L (4-49); AST 23 U/L (17-59); African American GFR (CKD) >90 (>60 ml/min/1.73 sqM); Albumin 2.9 g/dL (3.5-5.0); Alkaline Phosphatase 202 U/L (38-126); Anion Gap 6 mmol/L; Blood Urea Nitrogen 28 mg/dL (9-20); Calcium 8.8 mg/dL (8.4-10.2); Carbon Dioxide 27 mmol/L (22-30); Chloride 101 mmol/L (98-107); Glucose 128 mg/dL (74-99); Non-African American GFR(CKD) >90 (>60 ml/min/1.73 sqM); Potassium 4.6 mmol/L (3.5-5.1); Sodium 134 mmol/L (137-145); Total Bilirubin 0.7 mg/dL (0.2-1.3); Total Protein 5.6 g/dL (6.3-8.2)
--- NOTE | 2025-02-04 09:46 | P.CNOR ---
History of Present Illness - [facility] Consult date: 02/04/25 Consult reason: other (Request for bone biopsy of T12.) History of present illness: This is a 64-year-old male admitted with hip pain, generalized weakness and a recent 20 pound weight loss. The patient is a smoker. He was scheduled for a total left hip replacement with Dr. Tima Vázquez next week. He is currently being seen by pulmonology and oncology with suspicion for metastatic lung cancer. CT scan of the chest abdomen and pelvis revealed a bony abnormality at T12. Orthopedics has been consulted for biopsy of T12. He is currently on high flow oxygen per nasal cannula at a rate of 50. The patient is on high flow oxygen. He has metastatic cancer with pulmonary distress currently. He has been counseled with his medical team and oncology. He and his family are opting to pursue hospice care. As such we do not plan any acute intervention from an orthopedic spine standpoint. We discussed this with him and they understand. He has lots of support around him at bedside as he is making this decision. We will sign off. Past Medical History Past Medical History: No Reported History History of Any Multi-Drug Resistant Organisms: None Reported Past Surgical History: Hernia Repair Additional Past Surgical History / Comment(s): 2011 and 2015 mesh hernia repairs bilateral Past Psychological History: No Psychological Hx Reported Smoking Status: Current every day smoker, Heavy tobacco smoker Past Alcohol Use History: None Reported Past Drug Use History: None Reported - Past Family History Mother Family Medical History: CVA/TIA Father Family Medical History: Cancer Additional Family Medical History / Comment(s): lymphoma Medications and Allergies Home Medications Medication Instructions Recorded Confirmed Type Acetaminophen [Tylenol Arthritis] 1,300 mg PO Q6H PRN 01/30/25 01/30/25 History Cyclobenzaprine [Flexeril] 10 mg PO BID 01/30/25 01/30/25 History Ibuprofen [Motrin Ib] 800 mg PO Q6H PRN 01/30/25 01/30/25 History Simvastatin [Zocor] 20 mg PO HS 01/30/25 01/30/25 History amLODIPine [Norvasc] 10 mg PO DAILY 01/30/25 01/30/25 History hydroCHLOROthiazide [Hydrodiuril] 25 mg PO DAILY 01/30/25 01/30/25 History traMADol HCL 50 mg PO BID 01/30/25 01/30/25 History Allergies Allergy/AdvReac Type Severity Reaction Status Date / Time peanut Allergy Swelling Verified 01/29/25 23:27 shellfish derived [Shellfish] Allergy Anaphylaxis Verified 01/29/25 23:27 soybean Allergy Swelling Verified 01/29/25 23:27 wheat Allergy Swelling Verified 01/29/25 23:27 Physical Examination Osteopathic Statement: *. No significant issues noted on an osteopathic structural exam other than those noted in the History and Physical/Consult. This is a pleasant 64-year-old male in no acute distress. He is on high flow O2 per nasal cannula. His is present at bedside. Exam of the head neck revealed no obvious deformity. He has some stiffness with cervical rotation. There is no tenderness with palpation about the cervical spine or paraspinal musculature. He is nontender over the thoracic spine including T12 with palpation or percussion. He is able to sit up independently in bed. Exam of the upper extremities is unremarkable. He has fairly good shoulder, elbow, wrist and finger motion bilaterally. Exam of the lower extremities is unremarkable. There is some stiffness to the left hip with range of motion. Neurovascular status to the upper and lower extremities is intact. Results CT of the chest, abdomen and pelvis reveals a mass in the liver consistent with metastatic disease as well as some ascites. Pleural effusion noted. There is a lytic lesion to T12 with a compression fracture. Bone scan reveals increased uptake to the left hip which is likely degenerative. There is also uptake to the ribs. I see a small amount of increased uptake at T12. - Labs Labs: Abnormal Lab Results - Last 24 Hours (Table) 02/03/25 02/03/25 02/03/25 Range/Units 11:32 16:32 19:58 Sodium (137-145) mmol/L BUN (9-20) mg/dL Creatinine (0.66-1.25) mg/dL Glucose (74-99) mg/dL POC Glucose (mg/dL) 168 H 221 H 208 H (70-110) mg/dL Alkaline Phosphatase (38-126) U/L Total Protein (6.3-8.2) g/dL Albumin (3.5-5.0) g/dL 02/04/25 02/04/25 Range/Units 05:53 07:00 Sodium 134 L (137-145) mmol/L BUN 28 H (9-20) mg/dL Creatinine 0.49 L (0.66-1.25) mg/dL Glucose 128 H (74-99) mg/dL POC Glucose (mg/dL) 136 H (70-110) mg/dL Alkaline Phosphatase 202 H (38-126) U/L Total Protein 5.6 L (6.3-8.2) g/dL Albumin 2.9 L (3.5-5.0) g/dL H & H 01/29/25 Range/Units 23:18 Hgb 11.8 L (13.0-17.0) g/dL Hct 33.6 L (39.6-50.0) % Result Diagrams: 01/29/25 23:18 02/04/25 07:00 Assessment and Plan (1) T12 vertebral fracture Current Visit: Yes Status: Acute Code(s): S22.089A - UNSP FRACTURE OF T11- T12 VERTEBRA, INIT FOR CLOS FX SNOMED Code(s): 589613707 (2) Left hip pain Current Visit: Yes Status: Acute Code(s): M25.552 - PAIN IN LEFT HIP SNOMED Code(s): 40210679 (3) Pleural effusion Current Visit: Yes Status: Acute Priority: High Code(s): J90 - PLEURAL EFFUSION, NOT ELSEWHERE CLASSIFIED SNOMED Code(s): 16406576 (4) Pneumonia Current Visit: Yes Status: Acute Priority: High Code(s): J18.9 - PNEUMONIA, UNSPECIFIED ORGANISM SNOMED Code(s): 049864187 Plan: The clinical and radiographic findings are discussed with the patient and his . We had been asked by oncology to perform a biopsy of T12. However, the patient is not cleared by pulmonology at this time due to his acute respiratory failure. Pulmonology will discuss this with the patient. If/when the patient is cleared from a medical and pulmonology standpoint for biopsy, please contact our office.
[2025-02-04 11:49] LABS: Glucose,Whole Blood 193 mg/dL (70-110)
--- NOTE | 2025-02-04 14:17 | P.PN ---
Subjective Progress Note Date: 02/04/25 This is a pleasant 64-year-old male patient with a known history of hyperlipidemia, hypertension, recent right shoulder, back and right hip pain. He had been seen and evaluated by medicine and orthopedics and was scheduled for right hip surgery on February 09, 2025. His pain however was getting so bad he co uld barely walk and was getting dizzy and falling. He presented to the emergency room here late last night. Chest x-ray revealed airspace consolidation in the right lung apex and bilateral lower lobes, consistent with multilobar pneumonia. Trace right pleural effusion. CT angiogram of the chest r evealed a large right pleural effusion. A 6.9 by 2.7 cm right upper lobe pulmonary mass likely result representing neoplasm. There is extension into the adjacent right 3rd and 4th rib. Reactive right sided lymphadenopathy. Ultrasound of the right chest revealed only a trace right pleural effusion measuring 1.6 cm. White count 6.8. Hemoglobin 11.8. Platelets 139. Sodium 137. Potassium 2.4. Bicarb 21. BUN 91. Creatinine 2.23. Glucose 131. AST 65. ALT 42. Troponin 0.089, 0.101. proBNP 5990. Procalcitonin 64.5. D-dimer greater than 34.1. The patient has been quite hypoxemic and is currently on BiPAP 12/6 and 70% FiO2 to maintain O2 saturations in the low 90s. He is seen in consultation in the emergency department. He is currently sitting up in a recliner. Remains on BiPAP. His is at the bedside and provides most of the information. He does have a nearly 50-year pack per day smoking history. He has not been seen by cloud operations engineer in the past. He has not had any low-dose CT scans for cancer screening. He has lost 23 pounds in the past several months. Most of his right shoulder and chest pain began in September 2024. The patient is seen today January 31, 2025 in follow-up on the selective care unit. He is currently sitting up in bed. Awake and alert. He is still requiring BiPAP 12/6 and 70% FiO2 to maintain O2 saturations in the low 90s. Blood culture showing gram-positive cocci in chains. He is currently on ceftriaxone and azithromycin. He remains on DuoNeb inhalations, Pulmicort and performance inhalations, Solu-Medrol. NicoDerm patch in place. Lovenox for DVT prophylaxis. Sodium 136. Potassium 2.7. Bicarb 26. BUN 51. Creatinine 1.03. Urinalysis clean. The patient is seen today February 01, 2025 in follow-up on the selective care unit. He is awake and alert in no acute distress. Sitting up in bed. Maintaining O2 saturations in the 90s on Airvo high flow oxygen at 50 L and 65% FiO2. Blood culture showing Streptococcus intermedius. Sodium 139. Potassium 3.9. Bicarb 26. BUN 38. Creatinine 0.83. Glucose 227. He remains on DuoNeb inhalations, Pulmicort and Perforomist inhalations, IV Solu-Medrol. NicoDerm patch in place. Antibiotics in the form of ceftriaxone. There is a photopenic defect within the right posterior rib. An aggressive metastasis is not excluded. Right humeral head and left femoral head and increased uptake slightly greater than expected for typical degenerative change. Additional areas of uptake more likely related to degenerative joint changes. The patient is seen today February 04, 2025 in follow-up on the selective care unit. He is currently sitting up in bed. He is quite weak. Not feeling well. He is still requiring Airvo high flow oxygen at 50 L and 55% FiO2. He has lactated Ringer's at 50 mL/h. He is continued on DuoNeb inhalations, Pulmicort and Perforomist inhalations, Solu-Medrol. Lovenox for DVT prophylaxis. NicoDerm patch in place. Continued on ceftriaxone. Orthopedics had been consulted for possible bone biopsy and kyphoplasty of T12 however the patient is to unstable for surgical intervention at this point. Blood cultures showing Streptococcus intermedius. Sodium 134. Potassium 4.6. Bicarb 27. BUN 28. Creatinine 0.49. Glucose 128. Objective - Vital Signs Vital signs: Vital Signs Temp 97.7 F 02/04/25 08:00 Pulse 72 02/04/25 12:30 Resp 22 02/04/25 08:00 BP 159/98 02/04/25 08:00 Pulse Ox 93 L 02/04/25 12:17 FiO2 55 02/04/25 12:17 Intake & Output 02/03/25 02/04/25 02/04/25 18:59 06:59 18:59 Intake Total 0 Output Total 1000 850 Balance -1000 -850 0 Weight 76.5 kg Intake: Oral 0 Output: Urine 1000 850 Other: Voiding Method External Catheter External Catheter - Exam GENERAL EXAM: Alert, very weak 64-year-old male, sitting up in bed, on Airvo high flow oxygen at 50 L and 55% FiO2, fairly comfortable in no apparent distress. HEAD: Normocephalic. EYES: Normal reaction of pupils, equal size. NOSE: Clear with pink turbinates. THROAT: No erythema or exudates. NECK: No masses, no JVD. CHEST: No chest wall deformity. LUNGS: Equal air entry with scattered rhonchi, wheeze mostly in the right lung. CVS: S1 and S2 normal with no audible murmur, regular rhythm. ABDOMEN: No hepatosplenomegaly, normal bowel sounds, no guarding or rigidity. SPINE: No scoliosis or deformity SKIN: No rashes CENTRAL NERVOUS SYSTEM: No focal deficits, tone is normal in all 4 extremities. EXTREMITIES: There is no peripheral edema. No clubbing, no cyanosis. Peripheral pulses are intact. - Labs CBC & Chem 7: 01/29/25 23:18 02/04/25 07:00 Labs: Abnormal Lab Results - Last 24 Hours (Table) 02/03/25 02/03/25 02/04/25 Range/Units 16:32 19:58 05:53 Sodium (137-145) mmol/L BUN (9-20) mg/dL Creatinine (0.66-1.25) mg/dL Glucose (74-99) mg/dL POC Glucose (mg/dL) 221 H 208 H 136 H (70-110) mg/dL Alkaline Phosphatase (38-126) U/L Total Protein (6.3-8.2) g/dL Albumin (3.5-5.0) g/dL 02/04/25 02/04/25 Range/Units 07:00 11:48 Sodium 134 L (137-145) mmol/L BUN 28 H (9-20) mg/dL Creatinine 0.49 L (0.66-1.25) mg/dL Glucose 128 H (74-99) mg/dL POC Glucose (mg/dL) 193 H (70-110) mg/dL Alkaline Phosphatase 202 H (38-126) U/L Total Protein 5.6 L (6.3-8.2) g/dL Albumin 2.9 L (3.5-5.0) g/dL Assessment and Plan Assessment: Generalized weakness, dizziness and falls suspect secondary to metastatic lung cancer and bacteremia A 6.9 by 2.7 cm right upper lobe pulmonary mass likely result representing neoplasm. There is extension into the adjacent right 3rd and 4th rib. Reactive right sided lymphadenopathy. Thought to be a large right pleural effusion however ultrasound of the right chest revealed only a trace right pleural effusion measuring 1.6 cm. Bone scan revealed a photopenic defect within the right posterior rib. An aggressive metastasis is not excluded. Right humeral head and left femoral head with increased uptake slightly greater than expected for typical degenerative changes. CT scan of the abdomen and pelvis revealed ill-defined hypodense lesions in the right lobe of the liver suspicious for metastatic disease. Mild ascites adjacent to the liver. Bacteremia secondary to Streptococcus intermedius, currently on ceftriaxone Acute hypoxemic respiratory failure secondary to above suspected exacerbation of chronic obstructive pulmonary disease and post obstructive pneumonia. Procalcitonin 64.5 Hypokalemia, being replaced Significant weight loss of 23 pounds over the past several months 45 year pack/day smoking history Right shoulder, chest and hip pain. Was scheduled for hip surgery on February 09, 2025 Troponin leak Hypertension Hyperlipidemia Plan: The patient was seen and evaluated Labs and medications reviewed CT scan of the abdomen reviewed Appears with liver mets as well Microbiology reviewed Remains on ceftriaxone MRI of the brain pending Currently on Airvo high flow oxygen Titrate down the FiO2 as tolerated Continue DuoNeb inhalations Continue Pulmicort and Perforomist inhalations Continue IV Solu-Medrol NicoDerm patch in place Will need a biopsy at some point if he plans to move forward with treatment options Offered bronchoscopy knowing the risk of potential life support needed during and after the case Even inform the patient and his of potential based on his increased risk for any procedure at this point They are considering his options, considering possible hospice versus any furt her interventions Hospice consult placed We will make a further plan of care once the patient and his family make decisions I have personally seen and examined the patient, performed the documentation and the assessment and plan as written. Number of minutes spent on the visit: 10 Dictation was produced using [employer] software. Please excuse any grammatical, word or spelling errors.
[2025-02-04 16:39] LABS: Glucose,Whole Blood 181 mg/dL (70-110)
--- NOTE | 2025-02-04 19:58 | P.PN ---
Progress Note - Text Progress Note Date: 02/04/25 Chief Complaint: Short of breath Pleasant 64-year-old patient with follows with Dr. Villela. Chronic medical condition include hypertension, hyperlipidemia,. Patient also follows with orthopedics Dr. Vázquez. Patient is due for surgery on his right hip on February 09. Also has problems with cervical and lumbar spine. Also is followed with Dr. Carvajal, from OA. Patient been having significant pain in all these joints. Including both the shoulders. Patient has been losing weight has lost over 20 pounds. Has been more short of breath for over 3 weeks. Is a smoker. Cough clear sputum. Poor appetite. Patient is on a BiPAP. Patient's and son at the bedside. January 31: Admitted with pneumonia, severe COPD exacerbation, acute hypoxic respiratory failure, newly discovered right upper lung mass. Patient remains on BiPAP. Chest ultrasound does not show much fluid. Awaiting further input from Dr. Pelayo. Remains on IV ceftriaxone Zithromax IV Solu-Medrol. IV fluids. Discussed with the patient and at the bedside. Creatinine much better February 01: Seen this morning. Reclining in bed. On Airvo. 50 L 65%. Short of breath, but a bit better. Was on liquid diet. Advance to a soft diet. Remains on nebulized bronchodilators IV Solu-Medrol IV ceftriaxone. Bone scan was done. Somewhat nonspecific. Patient's current pulmonary status now stable for biopsy. Seen by orthopedics team. Elective total hip arthroplasty has been canceled. Eating well February 02: Patient n.p.o. this morning for CT scan abdomen chest pelvis. Remains on IV ceftriaxone IV cell Solu-Medrol. DuoNeb. at the bedside. CT abdomen pelvis showed ill-defined hypodense lesion in the right lobe of the liver suspicious for metastatic disease. Remains on Airvo February 03: Remains on Airvo. Decreased appetite. Spoke to the . Bring some food from home. Adding Marinol. Because of pulmonary status cannot get a lung biopsy. Liver lesion probably too small for biopsy. CT scan reviewed with Dr. Brock from pulmonary. Minimal pulmonary effusion. Remains on IV Solu-Medrol. DuoNeb. Ensure added February 04: Remains on Airvo. Few family members at the bedside. Earlier Dr. BROCK from pulmonary spoke to the patient. He ordered hospice. Earlier hospice from [facility] came in and spoke to the patient. Plan to transition to possible [facility] tomorrow. Patient is requiring high flow oxygen. Patient is eating some. Active Medications Albuterol/Ipratropium (Ipratropium-Albuterol 3 Ml Neb) 3 ml INHALATION RT-QID [facility] Last Admin: 02/04/25 16:03 Dose: 3 ml Albuterol/Ipratropium (Ipratropium-Albuterol 3 Ml Neb) 3 ml INHALATION RT-Q2H PRN PRN Reason: Shortness Of Breath Or Wheezing Budesonide (Budesonide 1 Mg/2 Ml Nebu) 1 mg INHALATION RT-BID [facility] Last Admin: 02/04/25 08:31 Dose: 1 mg Cyclobenzaprine HCl (Cyclobenzaprine 10 Mg Tab) 10 mg PO BID [facility] Last Admin: 02/04/25 09:34 Dose: 10 mg Dextrose/Water (Dextrose 50% Syringe 50 Ml) 25 ml IVP PER PROTOCOL PRN; Protocol PRN Reason: Hypoglycemia Dextrose/Water (Dextrose 50% Syringe 50 Ml) 50 ml IVP PER PROTOCOL PRN; Protocol PRN Reason: Hypoglycemia Docusate Sodium (Docusate 100 Mg Cap) 100 mg PO BID [facility] Last Admin: 02/04/25 09:35 Dose: 100 mg Dronabinol (Dronabinol 2.5 Mg Cap) 2.5 mg PO AC-BID [facility] Last Admin: 02/04/25 17:24 Dose: 2.5 mg Enoxaparin Sodium (Enoxaparin 40 Mg/0.4 Ml Syringe) 40 mg SQ DAILY [facility] Last Admin: 02/04/25 09:35 Dose: 40 mg Famotidine (Famotidine 20 Mg Tab) 20 mg PO DAILY [facility] Last Admin: 02/04/25 09:35 Dose: 20 mg Formoterol Fumarate (Formoterol Fumarate 20 Mcg/2 Ml Nebu) 20 mcg INHALATION RT-BID [facility] Last Admin: 02/04/25 08:30 Dose: 20 mcg Hydromorphone HCl (Hydromorphone 1 Mg/Ml 1 Ml Syringe) 1 mg IVP Q3H PRN PRN Reason: Pain Last Admin: 02/04/25 15:42 Dose: 1 mg Lactated Ringer's (Lactated Ringers) 1,000 mls @ 50 mls/hr IV .Q20H [facility] Last Admin: 02/04/25 15:31 Dose: 50 mls/hr Ceftriaxone Sodium 2 gm/ (Sodium Chloride) 50 mls @ 100 mls/hr IVPB Q24H [facility]; Protocol Last Admin: 02/04/25 06:12 Dose: 100 mls/hr Insulin Human Lispro (Insulin Lispro (Humalog) 100 Unit/Ml 10 Ml Vl) 0 unit SQ ACHS [facility]; Protocol Last Admin: 02/04/25 17:24 Dose: 2 unit Methylprednisolone Sodium Succinate (Methylprednisolone Sod Succi 125 Mg/2 Ml Vial) 60 mg IV Q8H [facility] Last Admin: 02/04/25 17:24 Dose: 60 mg Naloxone HCl (Naloxone 0.4 Mg/Ml 1 Ml Vial) 0.2 mg IV Q2M PRN PRN Reason: Opioid Reversal Nicotine (Nicotine 21mg/24hr Patch) 1 patch TRANSDERM DAILY [facility] Last Admin: 02/04/25 09:34 Dose: 1 patch Ondansetron HCl (Ondansetron 4 Mg/2 Ml Vial) 4 mg IVP Q8HR PRN PRN Reason: Nausea And Vomiting Potassium Chloride (Potassium Chloride Er 20 Meq Tab.Er) 20 meq PO BID [facility] Last Admin: 02/04/25 09:35 Dose: 20 meq Tramadol HCl (Tramadol 50 Mg Tab) 50 mg PO BID [facility] Last Admin: 02/04/25 09:34 Dose: 50 mg Social history: Smokes a pack a day for close to 46 years. Lives with his and 2 daughters. 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 Sitting up in bed, short of breath EYES: Pupils equal. Conjunctiva jill l. HEENT: External appearance of nose and ears normal, oral cavity grossly normal. NECK: JVD unable to assess; masses not palpable. HEART: First and second heart sounds are normal; no edema. LUNGS: Respiratory rate increased,, unable to speak in full sentences, diminished breath sounds. ABDOMEN: Soft, nontender, liver spleen not palpable, no masses palpable. PSYCH: [Alert and oriented x3; mood and affect anxious MUSCULOSKELETAL:No Clubbing/cyanosis;muscles-grossly intact INVESTIGATIONS, reviewed in the clinical context: February 04: Potassium 4.6 BUN [address] abdomen pelvis: Ill-defined hypodense lesion in the right lobe of the liver suspicious for metastatic disease. Mild ascites adjacent to the liver. Moderate right pleural effusion. Some bibasilar opacities. Marked osteoarthritis of the left hip. February 02: Procalcitonin 2.44 UA: Trace protein Bone scan: Nonspecific potassium 3.9 creatinine 0.83 Renal ultrasound: Unremarkable January 31 potassium 2.7 creatinine 1.03 January 29, 2025: White count 6.8 hemoglobin 11.8 platelets 139 sodium 137 potassium 2.4 BUN 91 creatinine 2.23 lactic acid 4.9 repeat 1.8 AST 65 ALT 42 Troponin I 0.089, 0.101 procalcitonin 64.5 EKG tracing personally reviewed by me-normal sinus rhythm. Nonspecific ST-T wave changes Chest x-ray film personally reviewed by me-bibasilar infiltrates. Right upper area possible mass CT angiogram chest with IV contrast: Large right pleural effusion diffuse changes of COPD right upper lobe pulmonary mass Assessment plan: - Pneumonia suspect gram-negative organism: IV ceftriaxone, Zithromax Acute severe COPD exacerbation in a current smoker, causing hypoxic respiratory failure: Slow to respond IV Solu-Medrol. DuoNeb. Nebulized Perforomist - Acute hypoxic respiratory failure from underlying COPD, pneumonia: Slow to respond On Airvo. 50/65 - Right upper lung mass with right pleural effusion strongly suspicious for underlying malignancy in a smoker. Currently pulmonary status not stable for the same Dr. Brock from pulmonary spoke to the patient today. Hospice consulted -Minimal right pleural effusion Ultrasound chest does not show much pleural fluid.- - Essential hypertension Amlodipine. - Hyperlipidemia Zocor 20 mg nightly - Anorexia from an underlying multiple medical issues Marinol 2.5 mg twice daily. Add Ensure - Osteoarthritis in multiple joints including cervical spine, lumbar spine, right hip bilateral shoulders. With some neuropathic pain. Patient does follow outpatient with Dr. Tima Vázquez. Was due for surgery on hip hip on February 09.-Now canceled Orthopedics-Dr. Vázquez - Normocytic anemia likely of chronic disease - Severe hypokalemia,: Replaced Replace potassium - Acute kidney injury. Patient has been taking significant amount of Motrin at home. Likely ATN: Improved Stop any NSAIDs. Renal ultrasound. Unremarkable UA: Trace protein -DNR. Hospice consulted Discussed with the patient family members at bedside. Hospice consulted. Looking to make him GIP because of high oxygen requirement. Anxiety. Past Medical History Past Medical History: No Reported History History of Any Multi-Drug Resistant Organisms: None Reported Past Surgical History: Hernia Repair Additional Past Surgical History / Comment(s): 2011 and 2016 mesh hernia repairs bilateral Past Psychological History: No Psychological Hx Reported Smoking Status: Current every day smoker, Heavy tobacco smoker Past Alcohol Use History: None Reported Past Drug Use History: None Reported
[2025-02-04 20:10] LABS: Glucose,Whole Blood 205 mg/dL (70-110)
[2025-02-05 05:57] LABS: Glucose,Whole Blood 124 mg/dL (70-110)
[2025-02-05 11:24] LABS: Glucose,Whole Blood 151 mg/dL (70-110)
[2025-02-05 12:38] VITALS: BMI 25.7
--- NOTE | 2025-02-05 13:57 | P.PN ---
Subjective Progress Note Date: 02/05/25 Principal diagnosis: Lung mass. This is a pleasant 64-year-old male patient with a known history of hyperlipidemia, hypertension, recent right shoulder, back and right hip pain. He had been seen and evaluated by medicine and orthopedics and was scheduled for right hip surgery on February 09, 2025. His pain however was getting so bad he could barely walk and was getting dizzy and falling. He presented to the emergency room here late last night. Chest x-ray revealed airspace c onsolidation in the right lung apex and bilateral lower lobes, consistent with multilobar pneumonia. Trace right pleural effusion. CT angiogram of the chest revealed a large right pleural effusion. A 6.9 by 2.7 cm right upper lobe pulmonary mass likely result representing neoplasm. There is extension into the adjacent right 3rd and 4th rib. Reactive right sided lymphadenopathy. Ultrasound of the right chest revealed only a trace right pleural effusion measuring 1.6 cm. White count 6.8. Hemoglobin 11.8. Platelets 139. Sodium 137. Potassium 2.4. Bicarb 21. BUN 91. Creatinine 2.23. Glucose 131. AST 65. ALT 42. Troponin 0.089, 0.101. proBNP 5990. Procalcitonin 64.5. D-dimer greater than 34.1. The patient has been quite hypoxemic and is currently on BiPAP 12/6 and 70% FiO2 to maintain O2 saturations in the low 90s. He is seen in consultation in the emergency department. He is currently sitting up in a recliner. Remains on BiPAP. His is at the bedside and provides most of the information. He does have a nearly 50-year pack per day smoking history. He has not been seen by java web architect in the past. He has not had any low-dose CT scans for cancer screening. He has lost 23 pounds in the past several months. Most of his right shoulder and chest pain began in September 2024. The patient is seen today January 31, 2025 in follow-up on the selective care unit. He is currently sitting up in bed. Awake and alert. He is still requiring BiPAP 12/6 and 70% FiO2 to maintain O2 saturations in the low 90s. Blood culture showing gram-positive cocci in chains. He is currently on ceftriaxone and azithromycin. He remains on DuoNeb inhalations, Pulmicort and performance inhalations, Solu-Medrol. NicoDerm patch in place. Lovenox for DVT prophylaxis. Sodium 136. Potassium 2.7. Bicarb 26. BUN 51. Creatinine 1.03. Urinalysis clean. The patient is seen today February 01, 2025 in follow-up on the selective care unit. He is awake and alert in no acute distress. Sitting up in bed. Maintaining O2 saturations in the 90s on Airvo high flow oxygen at 50 L and 65% FiO2. Blood culture showing Streptococcus intermedius. Sodium 139. Potassium 3.9. Bicarb 26. BUN 38. Creatinine 0.83. Glucose 227. He remains on DuoNeb inhalations, Pulmicort and Perforomist inhalations, IV Solu-Medrol. NicoDerm patch in place. Antibiotics in the form of ceftriaxone. There is a photopenic defect within the right posterior rib. An aggressive metastasis is not excluded. Right humeral head and left femoral head and increased uptake slightly greater than expected for typical degenerative change. Additional areas of uptake more likely related to degenerative joint changes. Progress note dated February 02, 2025. 64-year-old male seen today in room 370. He is currently on Airvo, with settings at 50 L/min, and FiO2 to 75%. The patient had bone scan dated February 01, 2025. He apparently is scheduled for possible MRI of the brain today. The patient was initially seen for right upper lobe mass. In addition, the nurses tell us that he is going for CT scan of the abdomen and pelvis, to complete the staging and workup. He is suspected to have a malignancy, in the right upper lobe. Current labs include a glucose of 178, hemoglobin A1c of 6.6, and procalcitonin level of 2.44. Blood cultures are positive for Streptococcus intermedius. The patient CT scan of the abdomen, shows some lesions in the right lobe of the liver, consistent with metastatic disease, mild ascites, a moderate right-sided pleural effusion, and small left-sided pleural effusion. Marked osteoarthritis of the left hip but no destructive osseous lesions. Progress note dated February 03, 2025. 64-year-old male seen today in room 370. He was initially admitted with a diagnosis of right upper lobe mass. It appears that he has bronchogenic cancer. Heavy smoker in the past. In addition, CT scan of the abdomen and pelvis, showed what appears to be multiple hepatic metastasis. Interventional radiology was consulted for possible CT-guided fine-needle aspiration of his liver lesions , but they said that the lesions were too small, too deep. The patient will eventually need a lung biopsy, although his respiratory status is very tenuous. He continues on Airvo, at 50 L/min, with FiO2 60%. He is getting LR at 100 cc an hour to be dropped back to 50 cc an hour. He is getting saline at 10 cc an hour. No new labs today. I did speak to the patient's about the results of a CT scan of the abdomen and pelvis. Progress note dated February 05, 2025. 64-year-old male with suspected metastatic lung cancer. The patient was admitted with a diagnosis of right upper lobe mass. He also has disease, in his bone, and liver. The patient is planning on comfort care, as soon as some family members come in from out of town. I Have Had Long Conversations with the Patient, and the Patient's Family Including His . No new labs today other than a glucose of 151. Blood cultures were positive for Streptococcus intermedius. No recent chest x-ray. The patient continues on Airvo, at 15 L/min, with an FiO2 of 50%. Rocephin can be discontinued. Objective - Vital Signs Vital signs: Vital Signs Temp 97.9 F 02/05/25 12:00 Pulse 72 02/05/25 12:18 Resp 20 02/05/25 12:00 BP 164/86 02/05/25 12:00 Pulse Ox 90 L 02/05/25 12:08 FiO2 45 02/05/25 12:08 Intake & Output 02/04/25 02/05/25 02/05/25 18:59 06:59 18:59 Intake Total 0 Output Total 1250 1275 350 Balance -1250 -1275 -350 Weight 79 kg 79 kg Intake: Oral 0 Output: Urine 1250 1275 350 Other: Voiding Method Urinal Urinal Urinal # Voids 1 1 - Exam No acute distress, oriented 3. Currently on Airvo. HEENT examination is grossly unremarkable. Mucous membranes are moist. No oral lesions. Neck supple. Full range of motion. No adenopathy thyromegaly or neck vein distention. Cardiovascular examination reveals regular rhythm rate. S1-S2 normal. No S3 or S4. No discernible murmur noted. Lungs reveal moderate bilateral scattered rhonchi. No wheezes. No crackles. Breath sounds are equal bilaterally. Abdomen soft bowel sounds are heard. No masses or tenderness. Extremities are intact. No cyanosis clubbing or edema. Skin is without rash or lesion. Neurologic examination is brief but nonfocal. - Labs CBC & Chem 7: 01/29/25 23:18 02/04/25 07:00 Labs: Abnormal Lab Results - Last 24 Hours (Table) 02/04/25 02/04/25 02/05/25 Range/Units 16:38 20:09 05:55 POC Glucose (mg/dL) 181 H 205 H 124 H (70-110) mg/dL 02/05/25 Range/Units 11:22 POC Glucose (mg/dL) 151 H (70-110) mg/dL Assessment and Plan Assessment: Generalized weakness, dizziness and falls suspect secondary to metastatic lung cancer and bacteremia. A 6.9 by 2.7 cm right upper lobe pulmonary mass likely result representing neoplasm. There is extension into the adjacent right 3rd and 4th rib. Reactive right sided lymphadenopathy. Bone scan revealed a photopenic defect within t he right posterior rib. An aggressive metastasis is not excluded. Right humeral head and left femoral head with increased uptake slightly greater than expected for typical degenerative changes. Multiple metastatic deposits, in the right lobe of the liver. Bacteremia secondary to Streptococcus intermedius. Acute hypoxemic respiratory failure secondary to above. Hypokalemia. Significant weight loss of 23 pounds over the past several months. 45 year pack/day smoking history. Right shoulder, chest and hip pain. . Troponin leak. Hypertension. Plan: Plan dated February 02, 2025. The bone scan showed evidence of metastatic disease. The CT scan of the abdomen and pelvis showed metastatic disease to the right lobe of the liver. MRI scan is currently pending. The patient remains on Airvo, with settings of 50 L/min, FiO2 75%. The patient was admitted with a large right upper lobe mass. He will eventually need a biopsy. We will continue to follow. Prognosis is guarded. Labs, x-rays, and all medications are reviewed. Dictation was produced using Signal[employer] software. Please excuse any grammatical, word or spelling errors. Plan dated February 03, 2025. The patient appears to have lung cancer, involving the right upper lobe, with multiple metastatic deposits. CT scan of the abdomen pelvis, showed multiple metastatic deposits in the right lobe of the liver. Interventional radiology was consulted for possible liver biopsy, but the lesions were too small and too deep. He will eventually need a lung biopsy, although his respiratory status at this time is tenuous, and he would likely end up on mechanical ventilation. Hopefully, we get him turned around, and much more stable. Labs, x-rays, and medications are reviewed. We will continue to follow the patient, make recommendations. Overall prognosis is guarded. I did have a conversation with the today about the results of the CT scan of the abdomen pelvis. MRI scan of the brain is pending, but has not been done yet, as the machine is down. Dictation was produced using [employer] software. Please excuse any grammatical, word or spelling errors. Plan dated February 05, 2025. I had a long conversation with the family, over the last couple of days. The giovanny spears is not a candidate for biopsy at this time, as his respiratory status is very tenuous. Liver lesions are too small and too deep according to interventional radiology. Spine surgery, was considered, but the patient would clearly have to be prone, for that procedure, and the patient would likely require intubation, which she does not want. In addition, bronchoscopy would also lead to intubation and mechanical ventilation, again something the patient does not want. The patient is planning to go comfort care, once a family member arrives from out of country. Labs, x-rays, medications are reviewed. The patient's family, was very grateful, fully miguel discussion I had with him, and his family. Dr. Pelayo, also had a very miguel discussion with the patient and the patient's family, and the patient is reassured. Labs, x-rays, and medications are reviewed. Rocephin is discontinued. Dictation was produced using [employer] software. Please excuse any grammatical, word or spe lling errors. Time with Patient: Less than 30
[2025-02-05 16:33] LABS: Glucose,Whole Blood 159 mg/dL (70-110)
--- NOTE | 2025-02-05 18:01 | P.PN ---
Progress Note - Text Progress Note Date: 02/05/25 Chief Complaint: Short of breath Pleasant 64-year-old patient with follows with Dr. Villela. Chronic medical condition include hypertension, hyperlipidemia,. Patient also follows with orthopedics Dr. Vázquez. Patient is due for surgery on his right hip on February 09. Also has problems with cervical and lumbar spine. Also is followed with Dr. Carvajal, from OA. Patient been having significant pain in all these joints. Including both the shoulders. Patient has been losing weight has lost over 20 pounds. Has been more short of breath for over 3 weeks. Is a smoker. Cough clear sputum. Poor appetite. Patient is on a BiPAP. Patient's and son at the bedside. January 31: Admitted with pneumonia, severe COPD exacerbation, acute hypoxic respiratory failure, newly discovered right upper lung mass. Patient remains on BiPAP. Chest ultrasound does not show much fluid. Awaiting further input from Dr. Pelayo. Remains on IV ceftriaxone Zithromax IV Solu-Medrol. IV fluids. Discussed with the patient and at the bedside. Creatinine much better February 01: Seen this morning. Reclining in bed. On Airvo. 50 L 65%. Short of breath, but a bit better. Was on liquid diet. Advance to a soft diet. Remains on nebulized bronchodilators IV Solu-Medrol IV ceftriaxone. Bone scan was done. Somewhat nonspecific. Patient's current pulmonary status now stable for biopsy. Seen by orthopedics team. Elective total hip arthroplasty has been canceled. Eating well February 02: Patient n.p.o. this morning for CT scan abdomen chest pelvis. Remains on IV ceftriaxone IV cell Solu-Medrol. DuoNeb. at the bedside. CT abdomen pelvis showed ill-defined hypodense lesion in the right lobe of the liver suspicious for metastatic disease. Remains on Airvo February 03: Remains on Airvo. Decreased appetite. Spoke to the . Bring some food from home. Adding Marinol. Because of pulmonary status cannot get a lung biopsy. Liver lesion probably too small for biopsy. CT scan reviewed with Dr. Brock from pulmonary. Minimal pulmonary effusion. Remains on IV Solu-Medrol. DuoNeb. Ensure added February 04: Remains on Airvo. Few family members at the bedside. Earlier Dr. BROCK from pulmonary spoke to the patient. He ordered hospice. Earlier hospice from [facility] came in and spoke to the patient. Plan to transition to possible GIP tomorrow. Patient is requiring high flow oxygen. Patient is eating some. February 05: On Airvo.50/45. Decreased oral intake. Family member at the bedside. His daughter is getting in from the [place] tomorrow. GIP hospice to be initiated tomorrow. Otherwise being supportive. Patient rather thankful for his care. Active Medications Albuterol/Ipratropium (Ipratropium-Albuterol 3 Ml Neb) 3 ml INHALATION RT-QID [facility] Last Admin: 02/05/25 15:44 Dose: 3 ml Albuterol/Ipratropium (Ipratropium-Albuterol 3 Ml Neb) 3 ml INHALATION RT-Q2H PRN PRN Reason: Shortness Of Breath Or Wheezing Budesonide (Budesonide 1 Mg/2 Ml Nebu) 1 mg INHALATION RT-BID [facility] Last Admin: 02/05/25 09:10 Dose: 1 mg Cyclobenzaprine HCl (Cyclobenzaprine 10 Mg Tab) 10 mg PO BID [facility] Last Admin: 02/05/25 08:15 Dose: 10 mg Dextrose/Water (Dextrose 50% Syringe 50 Ml) 25 ml IVP PER PROTOCOL PRN; Protoc ol PRN Reason: Hypoglycemia Dextrose/Water (Dextrose 50% Syringe 50 Ml) 50 ml IVP PER PROTOCOL PRN; Protocol PRN Reason: Hypoglycemia Docusate Sodium (Docusate 100 Mg Cap) 100 mg PO BID [facility] Last Admin: 02/05/25 08:16 Dose: 100 mg Dronabinol (Dronabinol 2.5 Mg Cap) 2.5 mg PO AC-BID [facility] Last Admin: 02/05/25 06:24 Dose: 2.5 mg Enoxaparin Sodium (Enoxaparin 40 Mg/0.4 Ml Syringe) 40 mg SQ DAILY [facility] Last Admin: 02/05/25 08:16 Dose: 40 mg Famotidine (Famotidine 20 Mg Tab) 20 mg PO DAILY [facility] Last Admin: 02/05/25 08:16 Dose: 20 mg Formoterol Fumarate (Formoterol Fumarate 20 Mcg/2 Ml Nebu) 20 mcg INHALATION RT-BID [facility] Last Admin: 02/05/25 09:03 Dose: 20 mcg Hydromorphone HCl (Hydromorphone 1 Mg/Ml 1 Ml Syringe) 1 mg IVP Q3H PRN PRN Reason: Pain Last Admin: 02/05/25 15:20 Dose: 1 mg Lactated Ringer's (Lactated Ringers) 1,000 mls @ 50 mls/hr IV .Q20H [facility] Last Admin: 02/05/25 12:15 Dose: 50 mls/hr Insulin Human Lispro (Insulin Lispro (Humalog) 100 Unit/Ml 10 Ml Vl) 0 unit SQ ACHS [facility]; Protocol Last Admin: 02/05/25 12:17 Dose: Not Given Methylprednisolone Sodium Succinate (Methylprednisolone Sod Succi 125 Mg/2 Ml Vial) 60 mg IV Q8H [facility] Last Admin: 02/05/25 10:42 Dose: 60 mg Naloxone HCl (Naloxone 0.4 Mg/Ml 1 Ml Vial) 0.2 mg IV Q2M PRN PRN Reason: Opioid Reversal Nicotine (Nicotine 21mg/24hr Patch) 1 patch TRANSDERM DAILY [facility] Last Admin: 02/05/25 08:16 Dose: 1 patch Ondansetron HCl (Ondansetron 4 Mg/2 Ml Vial) 4 mg IVP Q8HR PRN PRN Reason: Nausea And Vomiting Potassium Chloride (Potassium Chloride Er 20 Meq Tab.Er) 20 meq PO BID [facility] Last Admin: 02/05/25 08:15 Dose: 20 meq Tramadol HCl (Tramadol 50 Mg Tab) 50 mg PO BID [facility] Last Admin: 02/05/25 08:15 Dose: 50 mg Social history: Smokes a pack a day for close to 46 years. Lives with his and 2 daughters. 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 Reclining in bed, short of breath EYES: Pupils equal. Conjunctiva jill l. HEENT: External appearance of nose and ears normal, oral cavity grossly normal. NECK: JVD unable to assess; masses not palpable. HEART: First and second heart sounds are normal; no edema. LUNGS: Respiratory rate increased,, unable to speak in full sentences, diminished breath sounds. ABDOMEN: Soft, nontender, liver spleen not palpable, no masses palpable. PSYCH: [Alert and oriented x3; mood and affect anxious MUSCULOSKELETAL:No Clubbing/cyanosis;muscles-grossly intact INVESTIGATIONS, reviewed in the clinical context: February 04: Potassium 4.6 BUN [address] abdomen pelvis: Ill-defined hypodense lesion in the right lobe of the liver suspicious for metastatic disease. Mild ascites adjacent to the liver. Moderate right pleural effusion. Some bibasilar opacities. Marked osteoarthritis of the left hip. February 02: Procalcitonin 2.44 UA: Trace protein Bone scan: Nonspecific potassium 3.9 creatinine 0.83 Renal ultrasound: Unremarkable January 31 potassium 2.7 creatinine 1.03 January 29, 2025: White count 6.8 hemoglobin 11.8 platelets 139 sodium 137 potassium 2.4 BUN 91 creatinine 2.23 lactic acid 4.9 repeat 1.8 AST 65 ALT 42 Troponin I 0.089, 0.101 procalcitonin 64.5 EKG tracing personally reviewed by me-normal sinus rhythm. Nonspecific ST-T wave changes Chest x-ray film personally reviewed by me-bibasilar infiltrates. Right upper area possible mass CT angiogram chest with IV contrast: Large right pleural effusion diffuse changes of COPD right upper lobe pulmonary mass Assessment plan: - Pneumonia suspect gram-negative organism: IV ceftriaxone, Zithromax Acute severe COPD exacerbation in a current smoker, causing hypoxic respiratory failure: Slow to respond IV Solu-Medrol. DuoNeb. Nebulized Perforomist - Acute hypoxic respiratory failure from underlying COPD, pneumonia: Slow to respond On Airvo. 50/65 - Right upper lung mass with right pleural effusion strongly suspicious for underlying malignancy in a smoker. Currently pulmonary status not stable for the same Dr. Brock from pulmonary spoke to the patient today. Hospice consulted -Minimal right pleural effusion Ultrasound chest does not show much pleural fluid.- - Essential hypertension Amlodipine. - Hyperlipidemia Zocor 20 mg nightly - Anorexia from an underlying multiple medical issues Marinol 2.5 mg twice daily. Add Ensure - Osteoarthritis in multiple joints including cervical spine, lumbar spine, right hip bilateral shoulders. With some neuropathic pain. Patient does follow outpatient with Dr. Tima Vázquez. Was due for surgery on hip hip on February 09.-Now canceled Orthopedics-Dr. Vázquez - Normocytic anemia likely of chronic disease - Severe hypokalemia,: Replaced Replace potassium - Acute kidney injury. Patient has been taking significant amount of Motrin at home. Likely ATN: Improved Stop any NSAIDs. Renal ultrasound. Unremarkable UA: Trace protein -DNR. - Hospice. Patient to be converted to GIP tomorrow. Awaiting his daughter to get in from [place]. Advised patient being kept comfortable. Hospice following. For GIP tomorrow. Past Medical History Past Medical History: No Reported History History of Any Multi-Drug Resistant Organisms: None Reported Past Surgical History: Hernia Repair Additional Past Surgical History / Comment(s): 2011 and 2016 mesh hernia repairs bilateral Past Psychological History: No Psychological Hx Reported Smoking Status: Current every day smoker, Heavy tobacco smoker Past Alcohol Use History: None Reported Past Drug Use History: None Reported
[2025-02-05 20:29] LABS: Glucose,Whole Blood 145 mg/dL (70-110)
[2025-02-06 06:11] LABS: Glucose,Whole Blood 126 mg/dL (70-110)
--- NOTE | 2025-02-06 11:47 | P.PN ---
Subjective Progress Note Date: 02/06/25 Principal diagnosis: Lung mass. This is a pleasant 64-year-old male patient with a known history of hyperlipidemia, hypertension, recent right shoulder, back and right hip pain. He had been seen and evaluated by medicine and orthopedics and was scheduled for right hip surgery on February 09, 2025. His pain however was getting so bad he could barely walk and was getting dizzy and falling. He presented to the emergency room here late last night. Chest x-ray revealed airspace c onsolidation in the right lung apex and bilateral lower lobes, consistent with multilobar pneumonia. Trace right pleural effusion. CT angiogram of the chest revealed a large right pleural effusion. A 6.9 by 2.7 cm right upper lobe pulmonary mass likely result representing neoplasm. There is extension into the adjacent right 3rd and 4th rib. Reactive right sided lymphadenopathy. Ultrasound of the right chest revealed only a trace right pleural effusion measuring 1.6 cm. White count 6.8. Hemoglobin 11.8. Platelets 139. Sodium 137. Potassium 2.4. Bicarb 21. BUN 91. Creatinine 2.23. Glucose 131. AST 65. ALT 42. Troponin 0.089, 0.101. proBNP 5990. Procalcitonin 64.5. D-dimer greater than 34.1. The patient has been quite hypoxemic and is currently on BiPAP 12/6 and 70% FiO2 to maintain O2 saturations in the low 90s. He is seen in consultation in the emergency department. He is currently sitting up in a recliner. Remains on BiPAP. His is at the bedside and provides most of the information. He does have a nearly 50-year pack per day smoking history. 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 He has not had any low-dose CT scans for cancer screening. He has lost 23 pounds in the past several months. Most of his right shoulder and chest pain began in September 2024. The patient is seen today January 31, 2025 in follow-up on the selective care unit. He is currently sitting up in bed. Awake and alert. He is still requiring BiPAP 12/6 and 70% FiO2 to maintain O2 saturations in the low 90s. Blood culture showing gram-positive cocci in chains. He is currently on ceftriaxone and azithromycin. He remains on DuoNeb inhalations, Pulmicort and performance inhalations, Solu-Medrol. NicoDerm patch in place. Lovenox for DVT prophylaxis. Sodium 136. Potassium 2.7. Bicarb 26. BUN 51. Creatinine 1.03. Urinalysis clean. The patient is seen today February 01, 2025 in follow-up on the selective care unit. He is awake and alert in no acute distress. Sitting up in bed. Maintaining O2 saturations in the 90s on Airvo high flow oxygen at 50 L and 65% FiO2. Blood culture showing Streptococcus intermedius. Sodium 139. Potassium 3.9. Bicarb 26. BUN 38. Creatinine 0.83. Glucose 227. He remains on DuoNeb inhalations, Pulmicort and Perforomist inhalations, IV Solu-Medrol. NicoDerm patch in place. Antibiotics in the form of ceftriaxone. There is a photopenic defect within the right posterior rib. An aggressive metastasis is not excluded. Right humeral head and left femoral head and increased uptake slightly greater than expected for typical degenerative change. Additional areas of uptake more likely related to degenerative joint changes. Progress note dated February 02, 2025. 64-year-old male seen today in room 370. He is currently on Airvo, with settings at 50 L/min, and FiO2 to 75%. The patient had bone scan dated February 01, 2025. He apparently is scheduled for possible MRI of the brain today. The patient was initially seen for right upper lobe mass. In addition, the nurses tell us that he is going for CT scan of the abdomen and pelvis, to complete the staging and workup. He is suspected to have a malignancy, in the right upper lobe. Current labs include a glucose of 178, hemoglobin A1c of 6.6, and procalcitonin level of 2.44. Blood cultures are positive for Streptococcus intermedius. The patient CT scan of the abdomen, shows some lesions in the right lobe of the liver, consistent with metastatic disease, mild ascites, a moderate right-sided pleural effusion, and small left-sided pleural effusion. Marked osteoarthritis of the left hip but no destructive osseous lesions. Progress note dated February 03, 2025. 64-year-old male seen today in room 370. He was initially admitted with a diagnosis of right upper lobe mass. It appears that he has bronchogenic cancer. Heavy smoker in the past. In addition, CT scan of the abdomen and pelvis, showed what appears to be multiple hepatic metastasis. Interventional radiology was consulted for possible CT-guided fine-needle aspiration of his liver lesions , but they said that the lesions were too small, too deep. The patient will eventually need a lung biopsy, although his respiratory status is very tenuous. He continues on Airvo, at 50 L/min, with FiO2 60%. He is getting LR at 100 cc an hour to be dropped back to 50 cc an hour. He is getting saline at 10 cc an hour. No new labs today. I did speak to the patient's about the results of a CT scan of the abdomen and pelvis. Progress note dated February 05, 2025. 64-year-old male with suspected metastatic lung cancer. The patient was admitted with a diagnosis of right upper lobe mass. He also has disease, in his bone, and liver. The patient is planning on comfort care, as soon as some family members come in from out of town. I Have Had Long Conversations with the Patient, and the Patient's Family Including His . No new labs today other than a glucose of 151. Blood cultures were positive for Streptococcus intermedius. No recent chest x-ray. The patient continues on Airvo, at 15 L/min, with an FiO2 of 50%. Rocephin can be discontinued. Progress note dated February 06, 2025. 64-year-old male with suspected metastatic lung cancer. The patient was admitted with a large mass, right upper lobe. The patient also has apparent metastasis to the bone, and liver. The patient continues on Airvo, 50 L/min, with an FiO2 of 45%. The patient, the patient's family has decided to be a DO NOT RESUSCITATE patient, and to progress to comfort care, sometime later today, when family members arrive from out of the country. Clinically, the patient is doing the same, or worse. No new labs today. Objective - Vital Signs Vital signs: Vital Signs Temp 97.5 F L 02/05/25 20:00 Pulse 77 02/06/25 09:40 Resp 20 02/06/25 09:40 BP 168/79 02/06/25 09:40 Pulse Ox 91 L 02/06/25 09:40 FiO2 55 02/06/25 09:40 Intake & Output 02/05/25 02/06/25 02/06/25 18:59 06:59 18:59 Intake Total 540 Output Total 625 1075 200 Balance -625 -535 -200 Weight 79 kg 80 kg Intake: Oral 540 Output: Urine 625 1075 200 Other: Voiding Method Urinal Urinal Urinal # Voids 1 - Exam No acute distress, oriented 3. Currently on Airvo. HEENT examination is grossly unremarkable. Mucous membranes are moist. No oral lesions. Neck supple. Full range of motion. No adenopathy thyromegaly or neck vein distention. Cardiovascular examination reveals regular rhythm rate. S1-S2 normal. No S3 or S4. No discernible murmur noted. Lungs reveal moderate bilateral scattered rhonchi. No wheezes. No crackles. Breath sounds are equal bilaterally. Abdomen soft bowel sounds are heard. No masses or tenderness. Extremities are intact. No cyanosis clubbing or edema. Skin is without rash or lesion. Neurologic examination is brief but nonfocal. - Labs CBC & Chem 7: 01/29/25 23:18 02/04/25 07:00 Labs: Abnormal Lab Results - Last 24 Hours (Table) 02/05/25 02/05/25 02/06/25 Range/Units 16:31 20:27 06:06 POC Glucose (mg/dL) 159 H 145 H 126 H (70-110) mg/dL Assessment and Plan Assessment: Generalized weakness, dizziness and falls suspect secondary to metastatic lung cancer and bacteremia. A 6.9 by 2.7 cm right upper lobe pulmonary mass likely result representing neoplasm. There is extension into the adjacent right 3rd and 4th rib. Reactive right sided lymphadenopathy. Bone scan revealed a photopenic defect within the right posterior rib. An aggressive metastasis is not excluded. Right humeral head and left femoral head with increased uptake slightly greater than expected for typical degenerative changes. Multiple metastatic deposits, in the liver and bone. Bacteremia secondary to Streptococcus intermedius. Acute hypoxemic respiratory failure secondary to above. Hypokalemia. Significant weight loss of 23 pounds over the past several months. 45 year pack/day smoking history. Right shoulder, chest and hip pain. . Troponin leak. Hypertension. Plan: Plan dated February 02, 2025. The bone scan showed evidence of metastatic disease. The CT scan of the abdomen and pelvis showed metastatic disease to the right lobe of the liver. MRI scan is currently pending. The patient remains on Airvo, with settings of 50 L/min, FiO2 75%. The patient was admitted with a large right upper lobe mass. He will eventually need a biopsy. We will continue to follow. Prognosis is guarded. Labs, x-rays, and all medications are reviewed. Dictation was produced using [employer] software. Please excuse any grammatical, word or spelling errors. Plan dated February 03, 2025. The patient appears to have lung cancer, involving the right upper lobe, with multiple metastatic deposits. CT scan of the abdomen pelvis, showed multiple metastatic deposits in the right lobe of the liver. Interventional radiology was consulted for possible liver biopsy, but the lesions were too small and too deep. He will eventually need a lung biopsy, although his respiratory status at this time is tenuous, and he would likely end up on mechanical ventilation. Hopefully, we get him turned around, and much more stable. Labs, x-rays, and medications are reviewed. We will continue to follow the patient, make r ecommendations. Overall prognosis is guarded. I did have a conversation with the today about the results of the CT scan of the abdomen pelvis. MRI scan of the brain is pending, but has not been done yet, as the machine is down. Dictation was produced using [employer] software. Please excuse any grammatical, word or spelling errors. Plan dated February 05, 2025. I had a long conversation with the family, over the last couple of days. The patient is not a candidate for biopsy at this time, as his respiratory status is very tenuous. Liver lesions are too small and too deep according to interventional radiology. Spine surgery, was considered, but the patient would clearly have to be prone, for that procedure, and the patient would likely require intubation, which she does not want. In addition, bronchoscopy would also lead to intubation and mechanical ventilation, again something the patient does not want. The patient is planning to go comfort care, once a family member arrives from out of country. Labs, x-rays, medications are reviewed. The patient's family, was very grateful, fully miguel discussion I had with him, and his family. Dr. Pelayo, also had a very miguel discussion with the patient and the patient's family, and the patient is reassured. Labs, x-rays, and medications are reviewed. Rocephin is discontinued. Dictation was produced using [employer] software. Please excuse any grammatical, word or spelling errors. Plan dated February 06, 2025. We have had multiple long discussions with the patient and patient's family about CODE STATUS, biopsy, etc. They have chosen to be a DO NOT RESUSCITATE patient, and, the patient will become comfort care, sometime later today, when family members arrive from out of the country. Labs, x-rays, and all medications are reviewed. The patient continues on Airvo, 50 L/min, with an FiO2 of 45%. Saturations are hovering right around 88 to 90%. Labs, x-rays, and all medications are reviewed. Prognosis is obviously very poor. The patient is a DO NOT RESUSCITATE patient. Dictation was produced using [employer] dictation software. Please excuse any grammatical, word or spelling errors. Time with Patient: Less than 30
[2025-02-06 13:43] VITALS: TEMP 98.2
[2025-02-06 20:57] VITALS: BP 172/88; PULSE 81; RESP 24
== END 2025-02-06 21:31 | disposition hospice, inpatient (51) | DRG 871 ==
LOC: EC 23:02 → 3SCARD 01-30 07:02
PROVIDERS: ADMIT Hospitalist; ATTEND Hospitalist
PROC: 5A09457 Assistance with Respiratory Ventilation, 24-96 Consecutive Hours, Continuous Positive Airway Pressure (ICD-10-PCS; principal; 2025-01-30)
DX: A40.9 Streptococcal sepsis, unspecified (principal); J15.69 Pneumonia due to other Gram-negative bacteria; J96.01 Acute respiratory failure with hypoxia; N17.0 Acute kidney failure with tubular necrosis; C78.7 Secondary malignant neoplasm of liver and intrahepatic bile duct; C79.51 Secondary malignant neoplasm of bone; J90 Pleural effusion, not elsewhere classified; C34.11 Malignant neoplasm of upper lobe, right bronchus or lung; J44.1 Chronic obstructive pulmonary disease with (acute) exacerbation; J44.0 Chronic obstructive pulmonary disease with (acute) lower respiratory infection; R18.8 Other ascites; E87.21 Acute metabolic acidosis; M84.58XA Pathological fracture in neoplastic disease, other specified site, initial encounter for fracture; Z66 Do not resuscitate; Z51.5 Encounter for palliative care; E87.6 Hypokalemia; I10 Essential (primary) hypertension; D64.9 Anemia, unspecified; F17.210 Nicotine dependence, cigarettes, uncomplicated; E78.5 Hyperlipidemia, unspecified; M15.9 Polyosteoarthritis, unspecified; M47.812 Spondylosis without myelopathy or radiculopathy, cervical region; M47.816 Spondylosis without myelopathy or radiculopathy, lumbar region; N14.0 Analgesic nephropathy; T39.315A Adverse effect of propionic acid derivatives, initial encounter; G62.9 Polyneuropathy, unspecified; R59.1 Generalized enlarged lymph nodes; M25.511 Pain in right shoulder; M25.551 Pain in right hip; Z79.891 Long term (current) use of opiate analgesic; Z79.899 Other long term (current) drug therapy
CPT/HCPCS: 36415; 71045; 71275; 74177; 76604; 76770; 78306; 80048; 80053; 81003; 83036; 83605; 83880; 84132; 84145; 84484; 85025; 85379; 87040; 93005; 94640; 94660; 94760; 96361; 96365; 96366; 96367; 96372; 96375; 96376; 99291

== ENCOUNTER 2025-02-06 21:24 | Inpatient (IN) | payer MEDICAID ==
[2025-02-06] MEDS ORDERED: ONDANSETRON 4 MG/2 ML VIAL IVP PRN (21:38)
[2025-02-06] MEDS ORDERED: ACETAMINOPHEN SUPPOSITORY 650 MG SUPP RECTAL PRN (21:38)
[2025-02-06] MEDS ORDERED: SCOPOLAMINE 1 MG/72 HR PATCH TRANSDERM PRN (21:38)
[2025-02-06] MEDS ORDERED: bisacodyL 10 MG SUPP RECTAL PRN (21:44)
[2025-02-06] MEDS: HYDROmorphone 2 MG/ML 1 ML SYRINGE IVP SCH (22:25)
[2025-02-06] MEDS: LORazepam 1 MG/0.5 ML VIAL IV SCH (22:26)
[2025-02-07] MEDS: HYDROmorphone 2 MG/ML 1 ML SYRINGE IVP PRN (01:15)
[2025-02-07] MEDS: LORazepam 1 MG/0.5 ML VIAL IV PRN (01:15)
[2025-02-07 01:38] VITALS: RESP 12
[2025-02-07] MEDS: MORPHINE SULFATE 100 MG in SODIUM CHLORIDE 0.9% 90 ML IV SCH (09:52)
[2025-02-07] MEDS: GLYCOPYRROLATE 0.2 MG/ML 2 ML VIAL IVP PRN (09:58)
== END 2025-02-07 12:54 | disposition expired | DRG 951 ==
LOC: 3SCARD 21:34
PROVIDERS: ADMIT Internal Medicine; ATTEND Internal Medicine
DX: Z51.5 Encounter for palliative care (principal); A40.9 Streptococcal sepsis, unspecified; J15.69 Pneumonia due to other Gram-negative bacteria; N17.0 Acute kidney failure with tubular necrosis; C78.7 Secondary malignant neoplasm of liver and intrahepatic bile duct; C79.51 Secondary malignant neoplasm of bone; C34.11 Malignant neoplasm of upper lobe, right bronchus or lung